=== PATIENT | female | born 1965 | race Two or more races ===

== ENCOUNTER 2024-06-26 15:28 | Outpatient (REF) | payer MEDICAID, SELFPAY ==
--- OUTSIDE RECORDS SUMMARY | 2024-06-26 15:31 | XMS_ITS | Continuity of Care Document ---
Author Organization [facility] Address [address] [place] [address] Phone Care Team Providers Care Security Flex Officer Name Role Phone No Information Unavailable Unavailable Allergies, Adverse Reactions, Alerts Substance Reaction Status Criticality No Known Allergies Active No Inform ation Medications Medication Instructions Dosage Effective Dates (start - stop) Status Comments naproxen 500 mg tablet take 1 tablet by oral route 2 times every day with food 500 MG - Active cyclobenzaprine 5 mg tablet take 1 tablet by oral route 2 times every day as needed 5 MG - Active Advance Directives Directive Yes / No Effective Date File Name No Information Encounters Encounter Description Practice Location Reason(s) For Visit Diagnoses Date Provider [address] tel:[phone] Location No Information No Information [place] [address], tel:[phone] [facility] No Information Raffucci Theodore. [address] [place] [address], [facility], . tel:[phone] [place] [address], tel:[phone] [facility] No Information Raffucci Theodore. [address] [place], [place], [facility], . tel:[phone], [facility], [place] tel:[phone] Dental Prakash No Information Raffucci Theodore. [address] [place], [place], [facility], [place]. tel:[phone] [place] [address], [address] [place] [address], [facility], tel:[phone] Dental Prakash No Information Raffucci Theodore. [address] [place], [place], [facility], [place]. tel:[phone] [place] [address], [address] [place] [address], [facility], tel:[phone] Dental Prakash No Information Raffucci Theodore. [address] [place], [place], [facility], . tel:[phone] [place] [address], [address] [place] [address], [facility], tel:[phone] [facility] left flank pain (chief complaint)W orried about BP (chief complaint) MyalgiaScreening for colon cancerScreening mammogram for breast cancerElevated blood pressure readingEncntr for general adult medical exam w/o abnormal findings Florin Hampton. [address] [place], [id number], . tel:[phone] [place] [address], [facility], [place] tel:[phone] [facility] Encounter for dental exam and cleaning w/o abnormal findings Raffucci Theodore. [address] [place], [facility], [place]. tel:[phone] [place] [address], [address] [place] [address], [facility], [place] tel:[phone] [facility] Encounter for dental exam and cleaning w/o abnormal findings Raffucci Theodore. [address] [place], [facility], [place]. tel:[phone] [place] [address] [place] [address], [facility], tel:[phone] [facility] Encounter for dental exam and cleaning w/o abnormal findings Jing Jaimes. [address] [place], [facility], . tel:[phone] [place] [address], [address] [place] [address], [facility], tel:[phone] [facility] Encounter for dental exam and cleaning w/o abnormal findings Jing Jaimes. [address] [place], [facility], . tel:[phone] [place] [address], [address] [place] [address], [facility], tel:[phone] [facility] Encounter for dental exam and cleaning w/o abnormal findings Jing Jaimes. [address] [place], [facility], [place]. tel:[phone] [place] [address], [address] [place] [address], [facility], tel:[phone] [facility] Encounter for dental exam and cleaning w/o abnormal findings Jing Jaimes. [address] [place], [facility], . tel:[phone] [place] [address], [facility], tel:[phone] [facility] Encounter for dental exam and cleaning w/o abnormal findings Kvng Hampton. [address] [place], [place], [id number], [place]. tel:[phone] [place] [address], [facility], tel:[phone] [facility] Encounter for dental exam and cleaning w/o abnormal findings Jing Jaimes. [address] [place], [facility], . tel:[phone] [place] [address], [place], [address], tel:[phone] [facility] Encounter for dental exam and cleaning w/o abnormal findings Jing Jaimes. [address] [place], [address], [place]. tel:[phone] [facility], [address] [place] [address], [address], [place] tel:[phone] [facility] Encounter for dental exam and cleaning w/o abnormal findings Jing Jaimes. [address] [facility] [place], [place]. tel:[phone] [facility], [address] [place] [address], [facility], [place] tel:[phone] [facility] Encounter for dental exam and cleaning w/o abnormal findings Jing Jaimes. [address] [place], [facility], [place]. tel:[phone] [place] [address], [address] [place] [address], [facility], [place] tel:[phone] [facility] Encounter for dental exam and cleaning w/o abnormal findings Jing Jaimes. [address] [place], [facility], [place]. tel:[phone] [facility], [address] [place] [address], [facility], [place] tel:[phone] [facility] Encounter for dental exam and cleaning w/o abnormal findings Jing Jaimes. [address] [place], [facility], [place]. tel:[phone] [facility], [address] [place] [address], [address], [place] tel:[phone] [facility] Encounter for dental exam and cleaning w/o abnormal findings Jing Jaimes. [address] [place], [facility], [place]. tel:[phone] [facility], [address] [place] [address], [facility], tel:[phone] Dental [place] Encounter for dental exam and cleaning w/o abnormal findings Bala Gomes. [address] [place], [facility], . [facility], [address] [place] [address], [facility], tel:[phone] [facility] Encounter for dental exam and cleaning w/o abnormal findings Bala Gomes. [address] [place], [facility], . [facility], [address] [place] [address], [facility], tel:[phone] Dental [place] Encounter for dental exam and cleaning w/o abnormal findings Bala Gomes. [address] [place], [facility], . [address], [facility], tel:[phone] Dental [place] Encounter for dental exam and cleaning w/o abnormal findings Bala Gomes. [address] [place], [facility], . [address], [facility], tel:[phone] [facility] Adult test result f/u (chief complaint) Age-related osteoporosis without current pathological fractureVitamin D deficiencyBody mass index (BMI) 22.0-22.9, adult Iliana Pena. [address], [place], [place], [facility], . tel:[phone], [facility], tel:[phone] [facility] Adult joint pain (chief complaint) Pain, joint, multiple sitesScreening mammogram, encounter forHealthcare maintenanceBody mass index (BMI) 21.0-21.9, adult Iliana Pena. [address], [place], [place], [facility], . tel:[phone] [facility], [address] [place] [address], [facility], tel:[phone] [facility] Encounter for dental exam and cleaning w/o abnormal findings Bala Gomes. [address] [place], [address], [place]. [facility], [address] [place] [address], [address], tel:[phone] [facility] Encounter for dental exam and cleaning w/o abnormal findings Bala Gomes. [address] [place], [address], [place]. [facility], [address] [place] [address], [facility], tel:[phone] [facility] Encounter for dental exam and cleaning w/o abnormal findings Bala Gomes. [address] [place], [address], [place]. [facility], [address] [place] [address], [facility], tel:[phone] [facility] Encounter for dental exam and cleaning w/o abnormal findings Bala Gomes. [address] [place], [facility], [place]. [facility], [address] [place] [address], [facility], tel:[phone] [facility] Encounter for dental exam and cleaning w/o abnormal findings Bala Gomes. [address] [place], [address], [place]. [facility], [address] [place] [address], [facility], tel:[phone] [facility] Encounter for dental exam and cleaning w/o abnormal findings Bala Gomes. [address] [place], [address], [place]. [address], [facility], tel:[phone] [facility] Encounter for dental exam and cleaning w/o abnormal findings Bala Gomes. [address] [place], [facility], [place]. [facility], [address] [place] [address], [address] [place] [address] tel:[phone] Dental [place] Encounter for dental exam and cleaning w/o abnormal findings Rafat Nguyen. [address] [place] [address], [facility], . tel:[phone] [place] [address], [address] [place] [address], [facility], tel:[phone] [facility] [place] cold symptoms (chief complaint) Acute non-recurrent maxillary sinusitis Dixon Anny. [address] [facility], [id number] [place], [facility], . tel:[phone] [place] [address], [address] [place] [address], [facility], tel:[phone] [facility] [place] ear ache (chief complaint) Acute non-recurrent maxillary sinusitisAcute mucoid otitis media of right ear Jessica Blanco. [address] [facility], [id number] [place], [place], [facility], . tel:[phone] [place] [address], [address] [place] [address], [facility], tel:[phone] [facility] [place] chest pain and cough (chief complaint) Bronchitis Jessica Sánchez. [address] [place], [place] [address]man Radha., [id number] [place], [place], [facility], . tel:[phone] [place] [address], [facility], tel:[phone] [facility] [place] DENTAL EXAMINATION Jing Jaimes. [address] [place], [place], [facility], . tel:[phone] [place] [address], [address] [place] [address], [facility], tel:[phone] [place] [facility] physical (chief complaint) Annual Adult PhysicalPPD Screen Kim Silva. [address] [place] [address], [id number], [place]. tel:[phone] [facility], [address] [facility], [place], [address], [place] tel:[phone] [facility] , knee pains right (chief complaint) Knee pain, acute Jessica Blanco. [address] [facility], [id number] [place], [address], [place]. tel:[phone] Family History Family Member Type Diagnosis Age At Onset Father Problem (finding) Hepatitis C (Cause Of D eath) Sister Problem (finding) murder (Cause Of ) Son Problem (finding) Sister Problem (finding) Mother Problem (finding) osteoporosis Son Problem (finding) asthma (Cause Of ) Father Problem (finding) Payers Payer name Insurance type Covered democrat ID Shahriar ramos(s) DENTAL [facility] CI [id number] Social History Type Description Quantity Date Captured Comments Sex Female Smoking Status No Information Sexual Orientation Straight or heterosexual May Gender Identity Female Chief Complaint And Reason For Visit No Information Plan Of Treatment Date Type Action Status Goal Colonoscopy. Due on 027 due Goal Tdap/Td. Due on due Goal Zoster vaccine ( ). Due on due Goal FOBT/FIT. Due on due Goal SBIRT. Due on du e Goal Self-Management Goals. Due on due Goal Influenza vaccin e. Due on due Goal HCV reflex to Qu ant RT PCR. Due on due Goal Pap/HPV testing. Due on due Goal Hep B Surface Ab , Quant. Due on due Goal Hep B Core Ab, I gM. Due on due Goal HIV 1/0/2 Ag/Ab With Reflex. Due on due Goal DEXA scan due Goal HCV reflex to Qu ant RT PCR. Due on due Goal Tdap/Td. Due on due Goal Self-Management Goals. Due on due Goal SBIRT. Due on du e Goal HIV 1/0/2 Ag/Ab With Reflex. Due on due Goal Influenza vaccin e. Due on due Goal FOBT/FIT. Due on due Goal Colonoscopy. Due on 027 due Goal DEXA scan due Goal Hep B Core Ab, I gM. Due on due Goal Pap/HPV testing. Due on due Goal Hep B Surface Ab , Quant. Due on due Goal Zoster vaccine ( ). Due on due Goal Influenza vaccin e. Due on due Goal FOBT/FIT. Due on due Goal SBIRT. Due on du e Goal HCV reflex to Qu ant RT PCR. Due on due Goal Tdap/Td. Due on due Goal Hep B Core Ab, I gM. Due on due Goal Hep B Surface Ab , Quant. Due on due Goal DEXA scan due Goal HIV 1/0/2 Ag/Ab With Reflex. Due on due Goal Pap/HPV testing. Due on due Goal Colonoscopy. Due on due Goal Self-Management Goals. Due on due Goal Zoster vaccine ( ). Due on due Goal Self-Management Goals. Due on due Goal Tdap/Td. Due on due Goal FOBT/FIT. Due on due Goal Influenza vaccin e. Due on due Goal Hep B Surface Ab , Quant. Due on due Goal HIV 1/0/2 Ag/Ab With Reflex. Due on due Goal Colonoscopy. Due on due Goal Zoster vaccine ( ). Due on due Goal SBIRT. Due on du e Goal Hep B Core Ab, I gM. Due on due Goal Pap/HPV testing. Due on due Goal HCV reflex to Qu ant RT PCR. Due on due Goal DEXA scan due Goal Tdap/Td. Due on due Goal Pap/HPV testing. Due on due Goal Self-Management Goals. Due on due Goal HCV reflex to Qu ant RT PCR. Due on due Goal DEXA scan due Goal Zoster vaccine ( 1st). Due on due Goal Influenza vaccin e. Due on due Goal Hep B Core Ab, I gM. Due on due Goal Colonoscopy. Due on 027 due Goal HIV 1/0/2 Ag/Ab With Reflex. Due on due Goal SBIRT. Due on du e Goal FOBT/FIT. Due on due Goal Hep B Surface Ab , Quant. Due on due Goal Zoster vaccine ( ). Due on due Goal DEXA scan due Goal Colonoscopy. Due on 027 due Goal FOBT/FIT. Due on due Goal Self-Management Goals. Due on due Goal HCV reflex to Qu ant RT PCR. Due on due Goal Influenza vaccin e. Due on due Goal Pap/HPV testing. Due on due Goal HIV 1/0/2 Ag/Ab With Reflex. Due on due Goal SBIRT. Due on du e Goal Hep B Surface Ab , Quant. Due on due Goal Hep B Core Ab, I gM. Due on due Goal Tdap/Td. Due on due Goal Hep B Core Ab, I gM. Due on due Goal HCV reflex to Qu ant RT PCR. Due on due Goal HIV 1/0/2 Ag/Ab With Reflex. Due on due Goal Zoster vaccine ( ). Due on due Goal Hep B Surface Ab , Quant. Due on due Goal Pap/HPV testing. Due on due Goal DEXA scan due Goal Influenza vaccin e. Due on due Goal Colonoscopy. Due on 027 due Goal Self-Management Goals. Due on due Goal Tdap/Td. Due on due Goal SBIRT. Due on du e Goal FOBT/FIT. Due on due Goal Tobacco cessation counseling completed Referral Ordered: Gastroenterology (related to Screening for colon cancer) ordered Referral Ordered: Lissy Orlando MD -Gynecology (related to Healthcare maintenance) ordered Referral Referred To: Lissy Orlando MD [address] [place] [address] [id number] [place], [address] [phone] Ordered: Referrals: Gynecology. Lissy Orlando MD. Evaluate and treat Appointment date/timeframe: 6 Months ordered Referral Referred To: [facility] [address] [place], [phone] Ordered: Referrals: Gastroenterology. Evaluate and treat Appointment date/timeframe: 6 Months ordered Future Order: Radiology Order Ma mmogram (Screen); Bilat, 2-view study of each breast, incl computer-aided detection when performed ([id number]), Ordered on: Ordered Future Order: Lab Order CBC w/di ff ([id number]), Ordered on: Ordered Future Order: Lab Order CMP ([id number]), Ordered on: Ordered Future Order: Lab Order Lipid Pa tonny ([id number]), Ordered on: Ordered Future Order: Lab Order Lyme, We miller Blot, Serum ([id number]), Ordered on: Ordered Future Order: Lab Order GENESIS ([id number]), Ordered on: Ordered Future Order: Lab Order Rheumato id Factor ([id number]), Ordered on: Ordered Future Order: Lab Order TSH ([id number]), Ordered on: Ordered Future Order: Lab Order UA w/dejon ro ([id number]), Ordered on: Ordered Future Order: Lab Order Vitamin D, 25-Hydroxy ([id number]), Ordered on: Ordered Future Order: Radiology Order Ma mmogram (Screening); Bilateral ([id number]), Ordered on: Ordered Future Order: Radiology Order Rj ne density study (by DEXA); appendicular skeleton (e.g., radius, wrist, heel) ([id number]), Ordered on: Ordered Future Order: Lab Order CMP ([id number]), Ordered on: Ordered Future Order: Lab Order Lipid Pa tonny ([id number]), Ordered on: Ordered History Of Present Illness Encounter Date Complaint History Of Prese nt Illness left flank pain Has been having left flank pain intermittently for the last 2 months. Is achy in nature and feels like the muscles are tensed.No dysuria, fever, chills or nausea. No change in odor or color of urine. Worried about BP Has been having high blood pressure reading at home.No headaches , chest pain or pressure. test result f/u Patient presents to follow-up test results. Discussed with patient benign labs, DEXA positive osteoporosis. Copy of reports providedjoint pain continues, pt states worse in the cold joint pain Onset: 1 month a go. It occurs constantly and is fluctuating. Location: bilateral bilateral wrist and knees. The pain radiates to the radiates down to finger tips and from knees to toes. The pain is aching and shooting. Context: there is no injury. There are no relieving factors. Associated symptoms include joint tenderness, locking, swelling, weakness and tremors. Pertinent negatives include bruising, crepitus, decreased mobility, difficulty initiating sleep, joint instability, limping, nocturnal awakening, nocturnal pain, numbness, popping, spasms, tingling in the arms and tingling in the legs. Hand Dominance: right. Additional information: NO relief with Ibuprofen, Tylenol, Advil, post menopausal, (8/10), worse with cold. cold symptoms The patient desc ribes the cough as dry and hacking. Associated symptoms include cough, hoarseness, nasal congestion, sinus pressure and sore throat. Pertinent negatives include chills, dyspnea, dyspnea on exertion, epistaxis, fatigue, fever, heartburn, hemoptysis, night sweats, pleuritic pain, post-nasal drainage, rhinitis, rhinorrhea, weight loss and wheezing. The patient does not have a history of allergies or asthma. ear ache The symptoms beg an 1 day ago. The symptoms are reported as being moderate. The location is right ear. Patient is here today stating she is having difficulty hearing in her right ear, states it started last night, reports right ear pressure and mild headache and denies pain. chest pain and cough She states the symptoms are acute and have worsened. pt been coughting and has chest pain Instructions Date Instruction Additional Infor krissy Blood pressure readi ng normal today.Educated on what to do prior to taking BP at home.Consume a diet high in fruits, vegetables, low-fat dairy, grains, poultry and fish. AVOID high salt intake, sugary foods and drinks. Exercise for 20 minutes a day 3 to 4 times a week. Related to Elevated blood pressure reading Naproxen and Cyclobe nzaprine prescribed. Related to Myalgia Refer to GI for colonoscopy. Rel ated to Screening for colon cancer Screening mammogram ordered. Rel ated to Screening mammogram for breast cancer Start Calcium and Vi tamin D supplement today,Ibuprofen or other OTC pain relief medications needed to joint pains Related to Age-related osteoporosis without current pathological fracture Complete all lab guillermo ts and follow-up for results in 3-5 business daysLabs are fasting, nothing to eat or drink after midnight prior to completing lab tests Related to Healthcare maintenance Mammo Rx chucho gardner follow-up results same day as DEXA scan Related to Screening mammogram, encounter for DEXA scan ordered to assess Rela flores to Pain, joint, multiple sites Finish your antibiot ic as prescribed, change your toothbrush, get plenty of rest, return to office if no improvement. Related to Acute non-recurrent maxillary sinusitis Follow up if symptom s persist or worsen. Related to Acute non-recurrent maxillary sinusitis Supportive Care Related to Acute non-recurrent maxillary sinusitis Saline gargles. Related to Acute non-recurrent maxillary sinusitis Practice good hygiene/ good hand washing Related to Acute non- recurrent maxillary sinusitis You must finish all antibiotics as ordered, do not stop them because you feel better. Related to Acute non-recurrent maxillary sinusitis Force Fluids Related to Acute non-recurrent maxillary sinusitis Increase your water intake to 100 cc per day to help thin the mucousTake sinus and congestion medicine consistentlyIf antibiotics prescribed take them until finishedMay consider using the REDDY POT to help drain the mucous from the sinusesAvoid allergensIf your a smoker, stop smoking Related to Acute non-recurrent maxillary sinusitis Use tylenol or advil for fever or painsTake the antibiotic as reviewedFollow up as needed if worsening ear probelmsincrease clear fluids Related to Acute mucoid otitis media of right ear Supportive Care Related to Bronc hitis Take medications as prescribed, do not skip doses. Related to Bronchitis Take medications as prescribed, do not skip doses. Related to Bronchitis Tylenol for fever an d pain. do not take more than the recommended dose daily. Related to Bronchitis You must finish all antibiotics as ordered, do not stop them because you feel better. Related to Bronchitis Practice good hygiene/ good hand washing Related to Bronchitis Go to ER is symptoms persist or worsen Related to Bronchitis Follow up if symptom s persist or worsen. Related to Bronchitis Patient understood a nd made informed decision Reviewed medications Take new medication as prescribe d Elevation Apply ice to affected area Increase rest Practice good hygiene Assessments Type Assessment Date No Information
== END 2024-06-26 15:29 | disposition home or self-care (01) ==
LOC: HO.MAMMO 15:28
PROVIDERS: PCP Internal Medicine; Visit Provider Internal Medicine
DX: Z12.31 Encounter for screening mammogram for malignant neoplasm of breast (principal)
CPT/HCPCS: 77063; 77067

== ENCOUNTER → 2024-06-26 15:30 | Outpatient (BNV) | payer MEDICAID, SELFPAY | PROVIDERS: PCP Internal Medicine; Visit Provider Internal Medicine | DX: Z12.31 Encounter for screening mammogram for malignant neoplasm of breast (principal) | CPT/HCPCS: 77063; 77067 ==

== ENCOUNTER 2024-06-27 14:37 | Outpatient (REF) | payer MEDICAID, SELFPAY ==
--- NOTE | ~2024-06-27 | MM_ITS ---
EXAMINATION: BONE DENSITOMETRY CLINICAL INDICATION: Osteoporosis. COMPARISON: This is the patient's baseline examination. TECHNIQUE: Using a [employer] DXA System (software version: 13.1) manufactured by [employer], dual-energy x-ray absorptiometry was performed of the lumbar spine and left hip. The images are of good technical quality. Summary results are attached. FINDINGS: LEFT FEMUR, NECK: BMD 0.801 g/cm2, Z-score -1.4, T-score -1.7, osteopenia. LEFT FEMUR, TOTAL: BMD 0.890 g/cm2, Z-score -1.0, T-score -0.9, normal. AP SPINE L1-L4: BMD 0.863 g/cm2, Z-score -2.2, T-score -2.6, osteoporosis. IDENTIFIED RISK FACTORS: Menopause, osteoporosis, tobacco user (current smoker). HISTORY OF FRACTURE: None listed. MEDICATIONS: Vitamin D. MM/XR DEXA axial skeleton IMPRESSION: 1. DIAGNOSIS: Osteoporosis based on the lowest T-score value of -2.6 in the lumbar spine applying World Health Organization criteria. 2. 10-YEAR FRACTURE RISK PREDICTION, FRAX: According to the guidelines, FRAX calculation should only be performed on patients in the osteopenia bone density category. Therefore, FRAX was not performed on this patient. 3. Treatment Recommendations: NOF guidelines recommend consideration for treatment in postmenopausal women and men age 50 and older presenting with the following: -A hip or vertebral (clinical or morphometric) fracture. -T-score less than or equal to -2.5 at the femoral neck or spine after appropriate evaluation to exclude secondary causes. -Low bone mass at the hip or spine and a 10-year fracture probability by FRAX of greater than or equal to 3% for hip fracture or greater than or equal to 20% for major osteoporotic fracture based on the [place] adapted WHO algorithm. 4. Other Recommendations: All treatment decisions require clinical judgment and consideration of individual patient factors, including patient preferences, comorbidities, previous drug use, risk factors not captured in the FRAX model (e.g. frailty, falls, vitamin D deficiency, increased bone turnover, interval significant decline in bone density) and possible under or overestimation of fracture risk by FRAX. Additional medical evaluation for secondary cause of low bone mineral density may be appropriate. FUTURE SCAN RECOMMENDATION: People with diagnosed cases of osteoporosis or at high risk for fracture should have regular bone mineral density tests. For patients eligible for Medicare, routine testing is allowed once every 2 years. The testing frequency can be increased to one year for patients who have rapidly progressing disease, those who are receiving or discontinuing medical therapy to restore bone mass, or have additional risk factors. Electronically signed by: Farhat Sosa MD 06/28/2024 10:12 AM SAUL
--- OUTSIDE RECORDS SUMMARY | 2024-06-27 14:39 | XMS_ITS | Continuity of Care Document ---
Author Organization [facility] Address [address] [place] [address] Phone Care Team Providers Care Survey Compiler Name Role Phone No Information Unavailable Unavailable [...] Location Reason(s) For Visit Diagnoses Date Provider [address] tel:[phone] No Location No Information No Information [place] [address], tel:[phone] [facility] No Information Raffucci Theodore. [address] [place] [address], [facility], . tel:[phone] [place] [address], tel:[phone] [facility] No Information Raffucci Theodore. [address] [place], [place], [facility], . tel:[phone], [facility], [place] tel:[phone] Dental Prakash No Information Raffucci Theodore. [address] [place], [place], [facility], [place]. tel:[phone] [place] [address], [address] [place] [address], [facility], tel:[phone] Dental Prakash No Information Raffucci Theodore. [address] [place], [place], [facility], [place]. tel:[phone] [place] [address], [address] [place] [address], [facility], tel:[phone] Dental Prakash No Information Raffucci Theodore. [address] [place], [place], [facility], . tel:[phone] [place] [address], [address] [place] [address], [facility], tel:[phone] [facility] left flank pain (chief complaint)W orried about BP (chief complaint) MyalgiaScreening for colon cancerScreening mammogram for breast cancerElevated blood pressure readingEncntr for general adult medical exam w/o abnormal findings Florin Hampton. [address] [place], [id number], . tel:[phone] [place] [address], [facility], [place] tel:[phone] [facility] Encounter for dental exam and cleaning w/o abnormal findings Raffucci Theodore. [address] [place], [facility], [place]. tel:[phone] [place] [address], [address] [place] [address], [facility], [place] tel:[phone] [facility] Encounter for dental exam and cleaning w/o abnormal findings Raffucci Theodore. [address] [place], [facility], [place]. tel:[phone] [place] [address] [place] [address], [facility], tel:[phone] [facility] Encounter for dental exam and cleaning w/o abnormal findings Jing Jaimes. [address] [place], [facility], . tel:[phone] [place] [address], [address] [place] [address], [facility], tel:[phone] [facility] Encounter for dental exam and cleaning w/o abnormal findings Jing Jaimes. [address] [place], [facility], . tel:[phone] [place] [address], [address] [place] [address], [facility], tel:[phone] [facility] Encounter for dental exam and cleaning w/o abnormal findings Jing Jaimes. [address] [place], [facility], [place]. tel:[phone] [place] [address], [address] [place] [address], [facility], tel:[phone] [facility] Encounter for dental exam and cleaning w/o abnormal findings Jing Jaimes. [address] [place], [facility], . tel:[phone] [place] [address], [facility], tel:[phone] [facility] Encounter for dental exam and cleaning w/o abnormal findings Kvng Hampton. [address] [place], [place], [id number], [place]. tel:[phone] [place] [address], [facility], tel:[phone] [facility] Encounter for dental exam and cleaning w/o abnormal findings Jing Jaimes. [address] [place], [facility], . tel:[phone] [place] [address], [place], [address], tel:[phone] [facility] Encounter for dental exam and cleaning w/o abnormal findings Jing Jaimes. [address] [place], [address], [place]. tel:[phone] [facility], [address] [place] [address], [address], [place] tel:[phone] [facility] Encounter for dental exam and cleaning w/o abnormal findings Jing Jaimes. [address] [facility] [place], [facility], [place]. tel:[phone] [facility], [address] [place] [address], [facility], [place] tel:[phone] [facility] Encounter for dental exam and cleaning w/o abnormal findings Jing Jaimes. [address] [place], [facility], [place]. tel:[phone] [place] [address], [address] [place] [address], [facility], [place] tel:[phone] [facility] Encounter for dental exam and cleaning w/o abnormal findings Jing Jaimes. [address] [place], [facility], [place]. tel:[phone] [facility], [address] [place] [address], [facility], [place] tel:[phone] [facility] Encounter for dental exam and cleaning w/o abnormal findings Jing Jaimes. [address] [place], [facility], [place]. tel:[phone] [facility], [address] [place] [address], [address], [place] tel:[phone] [facility] Encounter for dental exam and cleaning w/o abnormal findings Jing Jaimes. [address] [place], [facility], [place]. tel:[phone] [facility], [address] [place] [address], [facility], tel:[phone] [facility] [place] Encounter for dental exam and cleaning w/o abnormal findings Bala Gomes. [address] [place], [facility], . [facility], [address] [place] [address], [facility], tel:[phone] [facility] Encounter for dental exam and cleaning w/o abnormal findings Bala Gomes. [address] [place], [facility], . [facility], [address] [place] [address], [facility], tel:[phone] [facility] [place] Encounter for dental exam and cleaning w/o abnormal findings Bala Gomes. [address] [place], [facility], . [address], [facility], tel:[phone] [facility] [place] Encounter for dental exam and cleaning w/o abnormal findings Bala Gomes. [address] [place], [facility], . [address], [facility], tel:[phone] [facility] Adult test result f/u (chief complaint) Age-related osteoporosis without current pathological fractureVitamin D deficiencyBody mass index (BMI) 22.0-22.9, adult Iliana Pena. [address], [place], [place], [facility], . tel:[phone], [facility], tel:[phone] [facility] Adult joint pain (chief complaint) Pain, joint, multiple sitesScreening mammogram, encounter forHealthcare maintenanceBody mass index (BMI) 21.0-21.9, adult Iliana Pena. [address], [place], [place], [facility], . tel:[phone] [facility], [address] [place] [address], [facility], tel:[phone] [facility] Encounter for dental exam and cleaning w/o abnormal findings Bala Gomes. [address] [place], [address], [place]. [facility], [address] [place] [address], [address], tel:[phone] [facility] Encounter for dental exam and cleaning w/o abnormal findings Bala Gomes. [address] [place], [address], [place]. [facility], [address] [place] [address], [facility], tel:[phone] [facility] Encounter for dental exam and cleaning w/o abnormal findings Bala Gomes. [address] [place], [address], [place]. [facility], [address] [place] [address], [facility], tel:[phone] [facility] Encounter for dental exam and cleaning w/o abnormal findings Bala Gomes. [address] [place], [facility], [place]. [facility], [address] [place] [address], [facility], tel:[phone] [facility] Encounter for dental exam and cleaning w/o abnormal findings Bala Gomes. [address] [place], [address], [place]. [facility], [address] [place] [address], [facility], tel:[phone] [facility] Encounter for dental exam and cleaning w/o abnormal findings Bala Gomes. [address] [place], [address], [place]. [address], [facility], tel:[phone] [facility] Encounter for dental exam and cleaning w/o abnormal findings Bala Gomes. [address] [place], [facility], [place]. [facility], [address] [place] [address], [address] [place] [address] tel:[phone] [facility] [place] Encounter for dental exam and cleaning w/o abnormal findings Rafat Nguyen. [address] [place] [address], [facility], . tel:[phone] [place] [address], [address] [place] [address], [facility], tel:[phone] [facility] cold symptoms (chief complaint) Acute non-recurrent maxillary sinusitis Dixon Anny. [address] [facility], [id number] [place], [place], [facility], . tel:[phone] [place] [address], [address] [place] [address], [facility], tel:[phone] [facility] ear ache (chief complaint) Acute non-recurrent maxillary sinusitisAcute mucoid otitis media of right ear Jessica Blanco. [address] [facility], [id number] [place], [place], [facility], . tel:[phone] [place] [address], [address] [place] [address], [facility], tel:[phone] [facility] chest pain and cough (chief complaint) Bronchitis Jessica Sánchez. [address] [place], [place] [address]man Radha., [id number] [place], [facility], . tel:[phone] [place] [address], [facility], tel:[phone] [facility] [place] DENTAL EXAMINATION Jing Jaimes. [address] [place], [place], [facility], . tel:[phone] [place] [address], [address] [place] [address], [facility], tel:[phone] [facility] physical (chief complaint) Annual Adult PhysicalPPD Screen Kim Silva. [address] [place] [address], [id number], [place]. tel:[phone] [facility], [address] [facility], [place], [address], [place] tel:[phone] [facility] , knee pains right (chief complaint) Knee pain, acute Jessica Blanco. [address] [facility], [id number] [place], [address], [place]. tel:[phone] Family History Family Member Type Diagnosis Age At Onset Father Problem (finding) Hepatitis C (Cause Of D eath) Sister Problem (finding) murder (Cause Of ) Son Problem (finding) Sister Problem (finding) Mother Problem (finding) osteoporosis Son Problem (finding) asthma (Cause Of ) Father Problem (finding) Payers Payer name Insurance type Covered democrat ID Shahriar sagephuc(s) DENTAL [facility] CI [id number] Social History Type Description Quantity Date Captured Comments Sex Female Smoking Status No Information Sexual Orientation Straight or heterosexual May Gender Identity Female Chief Complaint And Reason For Visit No Information Plan Of Treatment Date Type Action Status Goal Zoster vaccine ( ). Due on due Goal FOBT/FIT. Due on due Goal Hep B Core Ab, I gM. Due on due Goal SBIRT. Due on du e Goal Colonoscopy. Due on 027 due Goal Pap/HPV testing. Due on due Goal HIV 1/0/2 Ag/Ab With Reflex. Due on due Goal Hep B Surface Ab , Quant. Due on due Goal Self-Management Goals. Due on due Goal Influenza vaccin e. Due on due Goal Tdap/Td. Due on due Goal DEXA scan due [...] Goal Colonoscopy. Due on 027 due Goal Zoster vaccine ( ). Due on due Goal SBIRT. Due on du e Goal Hep B Core Ab, I gM. Due on due Goal Pap/HPV testing. Due on due Goal HCV reflex to Qu ant RT PCR. Due on due Goal DEXA scan due Goal Self-Management Goals. Due on due Goal Tdap/Td. Due on due Goal Tdap/Td. Due on due Goal Pap/HPV testing. Due on due Goal Self-Management Goals. Due on due Goal HCV reflex to Qu ant RT PCR. Due on due Goal DEXA scan due Goal Zoster vaccine ( ). Due on due Goal Influenza vaccin e. Due on due Goal Hep B Core Ab, I gM. Due on due Goal Colonoscopy. Due on 027 due Goal HIV 1/0/2 Ag/Ab With Reflex. Due on due Goal SBIRT. Due on du e Goal FOBT/FIT. Due on due Goal Hep B Surface Ab , Quant. Due on due Goal FOBT/FIT. Due on due Goal Zoster vaccine ( [...] FOBT/FIT. Due on due Goal Hep B Core [...] ordered Referral Referred To: Lissy Orlando MD [address] [place] [address] [id number] [place], [address] [phone] Ordered: Referrals: Gynecology. Lissy Orlando MD. Evaluate and treat Appointment date/timeframe: 6 Months ordered Referral Referred To: [facility] [address] [place], [address] [phone] Ordered: Referrals: Gastroenterology. Evaluate and treat Appointment date/timeframe: 6 Months ordered Future Order: Radiology Order Ma mmogram (Screen); Bilat, 2-view study of each breast, incl computer-aided detection when performed ([id number]), Ordered on: Ordered Future Order: Lab Order CBC w/di ff ([id number]), Ordered on: Ordered Future Order: Lab Order CMP ([id number]), Ordered on: Ordered Future Order: Lab Order Lipid Pa tonny ([id number]), Ordered on: Ordered Future Order: Lab Order Lyme, We miller Blot, Serum ([id number]), Ordered on: Ordered Future Order: Lab Order GENESIS ([id number]), Ordered on: Ordered Future Order: Lab Order Rheumato id Factor ([id number]), Ordered on: Ordered Future Order: Lab Order TSH ([id number]), Ordered on: Ordered Future Order: Lab Order UA w/dejon ro ([id number]), Ordered on: Ordered Future Order: Lab Order Vitamin D, 25-Hydroxy ([id number]), Ordered on: Ordered Future Order: Radiology Order Ma mmogram (Screening); Bilateral ([id number]), Ordered on: Ordered Future Order: Radiology Order Rj ne density study (by DEXA); appendicular skeleton (e.g., radius, wrist, heel) ([id number]), Ordered on: Ordered Future Order: Lab Order CMP ([id number]), Ordered on: Ordered Future Order: Lab Order Lipid Pa tonny ([id number]), Ordered on: Ordered History Of Present Illness [...]
== END 2024-06-27 14:38 | disposition home or self-care (01) ==
LOC: HO.MAMMO 14:37
PROVIDERS: Visit Provider Internal Medicine
DX: M81.0 Age-related osteoporosis without current pathological fracture (principal)
CPT/HCPCS: 77080

== ENCOUNTER 2024-07-10 20:42 | Emergency (ER) | payer MEDICAID, SELFPAY ==
--- NOTE | ~2024-07-10 | XR_ITS ---
CLINICAL HISTORY: trauma Exam: AP, lateral, and mortise views of the left ankle. Comparison: None. Findings: Vertically oriented fracture of the lateral aspect of the distal fibula is seen extending to the tip of the lateral malleolus. This bony fragment measures 20 x 4 mm in size. Associated soft tissue swelling over the lateral aspect of the ankle and hindfoot. No additional fractures are identified. Ankle mortise is intact. Impression: Vertical fracture of the distal fibula with associated lateral soft tissue swelling. This document has been electronically signed by: Santiago Douglas MD on 07/10/2024 22:03:28
--- OUTSIDE RECORDS SUMMARY | 2024-07-10 20:45 | XMS_ITS | Continuity of Care Document ---
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 [address] [place] [address], [facility], . tel:[phone] [place] [address], tel:[phone] [facility] No Information Raffucci Theodore. [address], [place], [facility], . tel:[phone], [facility], [place] tel:[phone] Dental Prakash No Information Raffucci Theodore. [address], [place], [facility], [place]. tel:[phone] [place] [address], [address] [place] [address], [facility], tel:[phone] Dental Prakash No Information Raffucci Theodore. [address], [place], [facility], [place]. tel:[phone] [place] [address], [address] [place] [address], [facility], tel:[phone] Dental Prakash No Information Raffucci Theodore. [address], [facility], . tel:[phone] [place] [address], [address] [place] [address], [facility], tel:[phone] [facility] left flank pain (chief complaint)W orried about BP (chief complaint) MyalgiaScreening for colon cancerScreening mammogram for breast cancerElevated blood pressure readingEncntr for general adult medical exam w/o abnormal findings Florin Hampton. [address] [place], [id number], . tel:[phone] [place] [address], [facility], [place] tel:[phone] [facility] Encounter for dental exam and cleaning w/o abnormal findings Raffucci Theodore. [address], [facility], [place]. tel:[phone] [place] [address], [address] [place] [address], [facility], [place] tel:[phone] [facility] Encounter for dental exam and cleaning w/o abnormal findings Raffucci Theodore. [address], [facility], [place]. tel:[phone] [place] [address] [place] [address], [facility], tel:[phone] [facility] Encounter for dental exam and cleaning w/o abnormal findings Jing Jaimes. [address], [facility], . tel:[phone] [place] [address], [address] [place] [address], [facility], tel:[phone] [facility] Encounter for dental exam and cleaning w/o abnormal findings Jing Jaimes. [address], [facility], . tel:[phone] [place] [address], [address] [place] [address], [facility], tel:[phone] [facility] Encounter for dental exam and cleaning w/o abnormal findings Jing Jaimes. [address], [facility], [place]. tel:[phone] [place] [address], [address] [place] [address], [facility], tel:[phone] [facility] Encounter for dental exam and cleaning w/o abnormal findings Jing Jaimes. [address], [facility], . tel:[phone] [place] [address], [facility], tel:[phone] [facility] Encounter for dental exam and cleaning w/o abnormal findings Kvng Hampton. [address] [place], [place], [id number], [place]. tel:[phone] [place] [address], [facility], tel:[phone] [facility] Encounter for dental exam and cleaning w/o abnormal findings Jing Jaimes. [address], [facility], . tel:[phone] [place] [address], [place], [address], tel:[phone] [facility] Encounter for dental exam and cleaning w/o abnormal findings Jing Jaimes. [address] [place], [address], [place]. tel:[phone] [facility], [address] [place] [address], [address], [place] tel:[phone] [facility] Encounter for dental exam and cleaning w/o abnormal findings Jing Jaimes. [address] [facility], [facility], [place]. tel:[phone] [facility], [address] [place] [address], [facility], [place] tel:[phone] [facility] Encounter for dental exam and cleaning w/o abnormal findings Jing Jaimes. [address], [facility], [place]. tel:[phone] [place] [address], [address] [place] [address], [facility], [place] tel:[phone] [facility] Encounter for dental exam and cleaning w/o abnormal findings Jing Jaimes. [address], [facility], [place]. tel:[phone] [facility], [address] [place] [address], [facility], [place] tel:[phone] [facility] Encounter for dental exam and cleaning w/o abnormal findings Jing Jaimes. [address], [facility], [place]. tel:[phone] [facility], [address] [place] [address], [address], [place] tel:[phone] [facility] Encounter for dental exam and cleaning w/o abnormal findings Jing Jaimes. [address], [facility], [place]. tel:[phone] [facility], [address] [place] [address], [facility], tel:[phone] [facility] [place] Encounter for dental exam and cleaning w/o abnormal findings Bala Gomes. [address], [facility], . [facility], [address] [place] [address], [facility], tel:[phone] [facility] Encounter for dental exam and cleaning w/o abnormal findings Bala Gomes. [address], [facility], . [facility], [address] [place] [address], [facility], tel:[phone] [facility] [place] Encounter for dental exam and cleaning w/o abnormal findings Bala Gomes. [address], [facility], . [address], [facility], tel:[phone] [facility] [place] Encounter for dental exam and cleaning w/o abnormal findings Bala Gomes. [address], [facility], . [address], [facility], tel:[phone] [facility] Adult test result f/u (chief complaint) Age-related osteoporosis without current pathological fractureVitamin D deficiencyBody mass index (BMI) 22.0-22.9, adult Iliana Pena. [address], [place], [place], [facility], . tel:[phone], [facility], tel:[phone] [facility] Adult joint pain (chief complaint) Pain, joint, multiple sitesScreening mammogram, encounter forHealthcare maintenanceBody mass index (BMI) 21.0-21.9, adult Iliana Pena. [address], [place], [place], [facility], . tel:[phone] [facility], [address] [place] [address], [facility], tel:[phone] [facility] Encounter for dental exam and cleaning w/o abnormal findings Bala Gomes. [address] [place], [address], [place]. [facility], [address] [place] [address], [address], tel:[phone] [facility] Encounter for dental exam and cleaning w/o abnormal findings Bala Gomes. [address] [place], [address], [place]. [facility], [address] [place] [address], [facility], tel:[phone] [facility] Encounter for dental exam and cleaning w/o abnormal findings Bala Gomes. [address] [place], [address], [place]. [facility], [address] [place] [address], [facility], tel:[phone] [facility] Encounter for dental exam and cleaning w/o abnormal findings Bala Gomes. [address], [facility], [place]. [facility], [address] [place] [address], [facility], tel:[phone] [facility] Encounter for dental exam and cleaning w/o abnormal findings Bala Gomes. [address] [place], [address], [place]. [facility], [address] [place] [address], [facility], tel:[phone] [facility] Encounter for dental exam and cleaning w/o abnormal findings Bala Gomes. [address] [place], [address], [place]. [address], [facility], tel:[phone] [facility] Encounter for dental exam and cleaning w/o abnormal findings Bala Gomes. [address], [facility], [place]. [facility], [address] [place] [address], [address] [place] [address] tel:[phone] [facility] [place] Encounter for dental exam and cleaning w/o abnormal findings Rafat Nguyen. [address] [place] [address], [facility], . tel:[phone] [address] [place] [address], [address] [place] [address], [facility], tel:[phone] [facility] cold symptoms (chief complaint) Acute non-recurrent maxillary sinusitis Dixon Anny. [facility], [id number] [place], [facility], . tel:[phone] [address] [place] [address], [address] [place] [address], [facility], tel:[phone] [facility] ear ache (chief complaint) Acute non-recurrent maxillary sinusitisAcute mucoid otitis media of right ear Jessica Blanco. [address] [facility], [id number] [place], [place], [facility], . tel:[phone] [address] [place] [address], [address] [place] [address], [facility], tel:[phone] [facility] chest pain and cough (chief complaint) Bronchitis Jessica Sánchez. [address] [place], [place] [address]man Radha., [id number] [place], [facility], . tel:[phone] [address] [place] [address], [facility], tel:[phone] [facility] Jing Jaimes. [address], [facility], . tel:[phone] [address] [place] [address], [address] [place] [address], [facility], tel:[phone] [facility] physical (chief complaint) Annual Adult PhysicalPPD Screen Kim Silva. [address] [place] [address], [id number], [place]. tel:[phone] [facility], [address] [facility], [place], [address], [place] tel:[phone] [facility] , knee pains right (chief complaint) Knee pain, acute Jessica Blanco. [address] [facility], [id number] [place], [address], [place]. tel:[phone] Family History Family Member Type Diagnosis Age At Onset Father Problem (finding) Hepatitis C (Cause Of D eath) Sister Problem (finding) murder (Cause Of ) Son Problem (finding) Sister Problem (finding) Mother Problem (finding) osteoporosis Son Problem (finding) asthma (Cause Of ) Father Problem (finding) Payers Payer name Insurance type Covered green party ID Shahriar sagephuc(s) DENTAL [facility] CI [id number] Social History Type Description Quantity Date Captured [...] ant RT PCR. Due on due Goal Zoster vaccine ( ). Due on due Goal Self-Management Goals. Due on due Goal Colonoscopy. Due on due Goal Pap/HPV testing. Due on due Goal HIV 1/0/2 Ag/Ab With Reflex. Due on due Goal DEXA scan due Goal Hep B Surface Ab , Quant. Due on due Goal Hep B Core Ab, I gM. Due on due Goal Tdap/Td. Due on due Goal HCV reflex to Qu ant RT PCR. Due on due Goal SBIRT. Due on du e Goal FOBT/FIT. Due on due Goal Influenza [...] due Goal Colonoscopy. Due on due Goal HIV 1/0/2 Ag/Ab With Reflex. Due on due Goal SBIRT. Due on du e Goal FOBT/FIT. Due on due Goal Hep B Surface Ab , Quant. Due on due Goal SBIRT. Due on du e Goal Hep B Surface Ab , Quant. Due on due Goal Hep B Core Ab, I gM. Due on due Goal Tdap/Td. Due on due Goal FOBT/FIT. Due on due Goal Zoster vaccine ( ). Due on due Goal DEXA scan due Goal Colonoscopy. Due on due Goal Self-Management Goals. Due on due Goal HCV reflex to Qu ant RT PCR. Due on due Goal Influenza vaccin e. Due on due Goal Pap/HPV testing. Due on due Goal HIV 1/0/2 Ag/Ab With Reflex. Due on due Goal HCV reflex to [...] Ab, I gM. Due on due Goal Influenza vaccin e. Due on due Goal Colonoscopy. Due on due Goal Self-Management Goals. Due on due Goal Tdap/Td. Due on due Goal SBIRT. Due on du e Goal DEXA scan due Goal Pap/HPV testing. Due on due Goal Hep B Surface Ab , Quant. Due on due Goal Zoster vaccine ( 1st). Due on due Goal HIV 1/0/2 Ag/Ab With Reflex. Due on due Goal HCV reflex to Qu ant RT PCR. Due on due Goal Hep B Core Ab, I gM. Due on due Goal FOBT/FIT. Due on due Goal Tobacco cessation counseling completed Referral Ordered: Gastroenterology (related to Screening for colon cancer) ordered Referral Ordered: Lissy Orlando MD -Gynecology (related to Healthcare maintenance) ordered Referral Referred To: Lissy Orlando MD [address] [place] [address] [id number] [place], [phone] Ordered: Referrals: Gynecology. Lissy Orlanod MD. Evaluate and treat Appointment date/timeframe: 6 Months ordered Referral Referred To: [facility] [address] [place], [phone] Ordered: Referrals: Gastroenterology. Evaluate and treat Appointment date/timeframe: 6 Months ordered Future Order: Radiology Order Ma mmogram (Screen); Bilat, 2-view study of each breast, incl computer-aided detection when performed ([id number]), Ordered on: Ordered Future Order: Lab Order CBC w/di ff ([id number]), Ordered on: Ordered Future Order: Lab Order CMP ([id number]), Ordered on: Ordered Future Order: Lab Order Lipid Pa tonny ([id number]), Ordered on: Ordered Future Order: Lab Order Lyme, We miller Blot, Serum ([id number]), Ordered on: Ordered Future Order: Lab Order GENESIS ([id number]), Ordered on: Ordered Future Order: Lab Order Rheumato id Factor ([id number]), Ordered on: Ordered Future Order: Lab Order TSH ([id number]), Ordered on: Ordered Future Order: Lab Order UA w/dejon ro ([id number]), Ordered on: Ordered Future Order: Lab Order Vitamin D, 25-Hydroxy ([id number]), Ordered on: Ordered Future Order: Radiology Order Ma mmogram (Screening); Bilateral ([id number]), Ordered on: Ordered Future Order: Radiology Order Rj ne density study (by DEXA); appendicular skeleton (e.g., radius, wrist, heel) ([id number]), Ordered on: Ordered Future Order: Lab Order CMP ([id number]), Ordered on: Ordered Future Order: Lab Order Lipid Pa tonny ([id number]), Ordered on: Ordered History Of Present Illness [...] week. Related to Elevated blood pressure reading Refer to GI for colonoscopy. Rel ated to Screening for colon cancer Naproxen and Cyclobe nzaprine prescribed. Related to Myalgia Screening mammogram ordered. Rel ated to Screening [...] Acute mucoid otitis media of right ear Tylenol for fever an d pain. do not take more than the recommended dose daily. Related to Bronchitis Take medications as prescribed, do not skip doses. Related to Bronchitis Take medications as prescribed, do not skip doses. Related to Bronchitis Supportive Care Related to Bronc hitis You must finish all antibiotics as ordered, do not stop them because you feel better. Related to Bronchitis Practice good hygiene/ good hand washing Related to Bronchitis Go to ER is symptoms persist or worsen Related to Bronchitis Follow up if symptom s persist or worsen. Related to Bronchitis Take new medication as prescribe d Reviewed medications Patient understood a nd made informed decision Practice good hygiene Increase rest Apply ice to affected area Elevation Assessments Type Assessment Date No Information
[2024-07-10 20:59] VITALS: BP 153/70; PULSE 63; RESP 18; TEMP 36.3; O2SAT 100; BMI 25.6
[2024-07-10] MEDS: Acetaminophen 325 MG TABLET 975 MG PO (21:10)
[2024-07-10 22:30] VITALS: BP 127/78; PULSE 66; RESP 16; TEMP 36.4; O2SAT 100
--- NOTE | 2024-07-11 00:37 | ED_ITS ---
HPI - General Adult General Chief complaint: Extremity Injury, Lower Stated complaint: left ankle inj Time Seen by Provider: 07/11/24 00:37 History of Present Illness ED Provider: Quinn ALBERT narrative: The patient is a 59-year-old female who says that she twisted her left ankle getting off a bus at around 20:00 this evening. She has pain and swelling. She has no other injuries Related Data Allergies Allergy/AdvReac Type Severity Reaction Status Date / Time No Known Allergies Allergy Verified 07/10/24 21:03 Review of Systems Review of Systems: Yes all other systems are reviewed and are negative [facility] Social History Social History Advance Directives: No Advance Directives Information Provided: No Do you have a plan to hurt others: No Plan Physical Exam ED Vital Signs: Vital Signs - 24 hr 07/10/24 20:59 07/10/24 22:30 07/11/24 01:29 Temperature 97.3 F 97.6 F 97.4 F Pulse Rate 63 66 70 Respiratory Rate 18 16 16 Blood Pressure 153/70 H 127/78 142/76 H Pulse Oximetry 100 100 99 Oxygen Delivery Method Room Air Room Air Room Air BMI result Body Mass Index 25.6 Const Other: The patient had fallen asleep while waiting to be seen. The patient awoke easily to a normal mental status. HENMT Other: The appearance of the head and the face were unremarkable. Eyes General: appearance normal, both eyes and all related structures Neck Neck: Yes full ROM Resp Effort & Inspection: normal respiratory effort Skin Other: Skin of the left ankle is intact Neuro Other: The patient is awake and alert with a normal mental status. Cranial nerves are grossly intact. She has normal sensation of the left foot. Extrem Other: The patient has a swollen left ankle particularly over the lateral malleolus. Skin is intact. The foot is neurovascularly intact. The patient is tender at the left lateral malleolus. Medications Administered Discontinued Medications Generic Name Dose Route Start Last Admin Trade Name Freq PRN Reason Stop Dose Admin Acetaminophen 975 mg 07/10/24 21:08 07/10/24 21:10 Acetaminophen 325 Mg Tablet PO 07/10/24 21:09 975 mg ONCE ONE Administration Ibuprofen 400 mg 07/11/24 00:43 07/11/24 01:22 Ibuprofen 400 Mg Tablet PO 07/11/24 00:44 400 mg ONCE ONE Administration Medical Decision Making Medical Decision Making [facility] Narrative: The patient is a 59-year-old woman who twisted her left ankle and injured the ankle when she was stepping off bus. She has swelling primarily over the lateral malleolus. An x-ray shows an avulsion of the cortex of the lateral malleolus. Otherwise the bony structures are intact. The patient is neur ovascularly intact. She will be given a tall walking boot and crutches. She will be given a work note. She will be advised to try to be nonweightbearing on the left foot and to elevate the foot often. She should follow up with Orthopedics. Discharge Plan Discharge Clinical Impression: Closed fracture of left lateral malleolus Patient Disposition: Home, Self-Care Instructions: Ankle Fracture (ED) Additional Instructions: Although there is a small chip off the bone on the outside of your left ankle your injury is functionally a bad ankle sprain. Please wear the orthopedic boot when moving around. Use crutches when moving around to keep weight off your left foot. As much as you are able to try to avoid putting weight on your left foot. When you were sitting please keep the foot elevated so it is not on the ground. The more you can keep the foot elevated the more you will reduce the swelling of your injury. The more you can reduce the swelling of your injury the less pain you will experience. You may use 2 extra-strength acetaminophen (Tylenol) as needed for pain. You ma y do this up to 3 times per day. In addition to the acetaminophen you may use ibuprofen as well if necessary. Please contact the orthopedic office in the morning for a follow up appointment. I expect you will be given an appointment next week. Return to the emergency room if worse. Referrals: [facility] Orthopedic Surgeons [Provider Group] (left lateral malleolus fracture) Stand Alone Forms: Work/School Release Print Language: Khmer
[2024-07-11] MEDS: Ibuprofen 400 MG TABLET PO (01:22)
[2024-07-11 01:29] VITALS: BP 142/76; PULSE 70; RESP 16; TEMP 36.3; O2SAT 99
[2024-07-11 01:44] VITALS: BP 0/0; PULSE 0; RESP 0; TEMP -17.7; TEMP 0; O2SAT 0
== END 2024-07-11 01:45 | disposition home or self-care (01) ==
PROVIDERS: Emergency Provider Emergency Medicine
DX: S82.62XA Displaced fracture of lateral malleolus of left fibula, initial encounter for closed fracture (principal); X37.1XXA Tornado, initial encounter; Y93.89 Activity, other specified; Y92.89 Other specified places as the place of occurrence of the external cause; Y99.9 Unspecified external cause status; M25.572 Pain in left ankle and joints of left foot
CPT/HCPCS: 73610; 99283; 99284

== ENCOUNTER → 2024-07-10 21:30 | Outpatient (BNV) | payer MEDICAID, SELFPAY | PROVIDERS: Visit Provider Radiology Diagnostic Radiology | DX: S82.892A Other fracture of left lower leg, initial encounter for closed fracture (principal) | CPT/HCPCS: 73610 ==

== ENCOUNTER 2024-07-17 11:14 | Outpatient (AMB) | payer MEDICAID, SELFPAY ==
--- NOTE | 2024-07-17 11:36 | MHC.OFFVIS ---
Intake Visit Reasons: FC-Closed FC of LT-lateral malleolus DOI- 07/10/24 Intake Note: Ayah is a 59 year old female who presents today with tall walking boot and with her son and daughter in law for a evaluation of her left ankle injury, DOI 07/11/24. Patient reports when she was getting off a bus she rolled her ankle. She has sharp pain and some swelling. Patient is having numbness in her toes these past couple days. Allergies No Known Allergies Allergy (Verified 07/17/24 11:37) HPI HPI FC-Closed FC of LT-lateral malleolus DOI- 07/10/24: Details: Ms. Bautista is a 59-year-old female who presents to the office today for evaluation of a left ankle injury that she sustained on 07/10/2024. She reports that she was stepping off of a bus when she inverted her left ankle. She felt immediate pain and had difficulty with ambulation. She noticed immediate edema and ecchymosis. She was seen in the emergency department where she was placed into a tall walking boot and given crutches to assist with ambulation. [facility] Social History (Updated 07/17/24 @ 11:39 by Jason Covington) Alcohol intake: current Alcohol intake frequency: holidays/special occasions only Patient Tobacco Use Status: Never used Tobacco Current occupational status: employed Current occupation: production control assistant portfolio manager Review of Systems Const All systems reviewed & are unremarkable except as noted in HPI and below Physical Exam Const General: cooperative, healthy appearing and no acute distress Resp Effort & Inspection: normal respiratory effort and able to speak in complete sentences Cardio Rate: regular rate Peripheral pulses: Peripheral pulses 2+ throughout GI Palpation (GI): Soft to palpation Skin Lesions: no lesions Rashes: no rashes Extrem Other: Left ankle moderate edema both medial and lateral malleolus. There is ecchymosis scattered along the medial and lateral aspect of the heel and down into the dorsal aspect of the foot. Able to slightly dorsiflex and plantar flex but is limited due to pain and edema. Sensation is grossly intact but does report some mild numbness and tingling. Pedal pulse intact. Assessment & Plan Assessment & Plan (1) Closed left ankle fracture: Code(s): S82.892A - Other fracture of left lower leg, initial encounter for closed fracture Category: Medical Plan Ms. Bautista is a 59-year-old female who presents to the office today for evaluation of a left ankle injury that she sustained on 07/10/2024. She reports that she was stepping off of a bus when she inverted her left ankle. She felt immediate pain and had difficulty with ambulation. She noticed immediate edema and ecchymosis. She was seen in the emergency department where she was placed into a tall walking boot and given crutches to assist with ambulation. Patient will remain in a tall walking boot weight-bearing as tolerated. She is struggling to use crutches for ambulation. Therefore, I have given her a prescription for a front wheeled walker. I have also provided a prescription for physical therapy to work on gentle range of motion and gait training. I educated the patient that she should ice and elevate on 3 pillows above heart level as much as possible to assist with swelling. I would like to see her back in 4 weeks, sooner if needed. X-rays obtained in the office today reviewed by me, Belle Steve PA-C, and reveal lateral malleolar avulsion fracture. Orders: Orders XR ankle LT min 3V Today M25.579 - Pain in unspecified ankle and joints of unspecified foot PT Evaluation and Treatment Today S82.892A - Other fracture of left lower leg, initial encounter for closed fracture Medications: New walker Folding front wheeled walker 1 ea 0RF Lt ankle fracture S82.892A - Other fracture of left lower leg, initial encounter for closed fracture Coding Level of Care Code New Pt Level 4 (02408) Diagnoses Closed left ankle fracture S82.892A
--- OUTSIDE RECORDS SUMMARY | 2024-07-17 12:50 | XMS_ITS | Continuity of Care Document ---
Author Organization [facility] Address [address] [place] [address] Phone Care Team Providers Care Consumer Banker Name Role Phone No Information Unavailable Unavailable [...] Location Reason(s) For Visit Diagnoses Date Provider [address] tel:[phone] Location No Information No Information [place] [address], tel:[phone] [facility] No Information Raffucci Theodore. [address] [place] [address], [facility], . tel:[phone] [place] [address], tel:[phone] [facility] No Information Raffucci Theodore. [address] [place], [place], [facility], . tel:[phone], [facility], [place] tel:[phone] Dental Prakash No Information Raffucci Theodore. [address] [place], [place], [facility], [place]. tel:[phone] [place] [address], [address] [place] [address], [facility], tel:[phone] Dental Prakash No Information Raffucci Theodore. [address] [place], [place], [facility], [place]. tel:[phone] [place] [address], [address] [place] [address], [facility], tel:[phone] Dental Prakash No Information Raffucci Theodore. [address] [place], [place], [facility], . tel:[phone] [place] [address], [address] [place] [address], [facility], tel:[phone] [facility] left flank pain (chief complaint)W orried about BP (chief complaint) MyalgiaScreening for colon cancerScreening mammogram for breast cancerElevated blood pressure readingEncntr for general adult medical exam w/o abnormal findings Florin Hampton. [address] [place], [id number], . tel:[phone] [place] [address], [facility], [place] tel:[phone] [facility] Encounter for dental exam and cleaning w/o abnormal findings Raffucci Theodore. [address] [place], [place], [facility], [place]. tel:[phone] [place] [address], [address] [place] [address], [facility], [place] tel:[phone] [facility] Encounter for dental exam and cleaning w/o abnormal findings Raffucci Theodore. [address] [place], [place], [facility], [place]. tel:[phone] [place] [address] [place] [address], [facility], tel:[phone] [facility] Encounter for dental exam and cleaning w/o abnormal findings Jing Jaimes. [address] [place], [place], [facility], . tel:[phone] [place] [address], [address] [place] [address], [facility], tel:[phone] [facility] Encounter for dental exam and cleaning w/o abnormal findings Jing Jaimes. [address] [place], [place], [facility], . tel:[phone] [place] [address], [address] [place] [address], [facility], tel:[phone] [facility] Encounter for dental exam and cleaning w/o abnormal findings Jing Jaimes. [address] [place], [place], [facility], [place]. tel:[phone] [place] [address], [address] [place] [address], [facility], tel:[phone] [facility] Encounter for dental exam and cleaning w/o abnormal findings Jing Jaimes. [address] [place], [place], [facility], . tel:[phone] [place] [address], [facility], tel:[phone] [facility] Encounter for dental exam and cleaning w/o abnormal findings Kvng Hampton. [address] [place], [place], [id number], [place]. tel:[phone] [place] [address], [facility], tel:[phone] [facility] Encounter for dental exam and cleaning w/o abnormal findings Jing Jaimes. [address] [place], [place], [facility], . tel:[phone] [place] [address], [place], [address], tel:[phone] [facility] Encounter for dental exam and cleaning w/o abnormal findings Jing Jaimes. [address] [place], [address], [place]. tel:[phone] [facility], [address] [place] [address], [address], [place] tel:[phone] [facility] Encounter for dental exam and cleaning w/o abnormal findings Jing Jaimes. [address] [facility] [place], [facility], [place]. tel:[phone] [facility], [address] [place] [address], [facility], [place] tel:[phone] [facility] Encounter for dental exam and cleaning w/o abnormal findings Jing Jaimes. [address] [place], [place], [facility], [place]. tel:[phone] [place] [address], [address] [place] [address], [facility], [place] tel:[phone] [facility] Encounter for dental exam and cleaning w/o abnormal findings Jing Jaimes. [address] [place], [facility], [place]. tel:[phone] [facility], [address] [place] [address], [facility], [place] tel:[phone] [facility] Encounter for dental exam and cleaning w/o abnormal findings Jing Jaimes. [address] [place], [facility], [place]. tel:[phone] [facility], [address] [place] [address], [address], [place] tel:[phone] [facility] Encounter for dental exam and cleaning w/o abnormal findings Jing Jaimes. [address] [place], [place], [facility], [place]. tel:[phone] [facility], [address] [place] [address], [facility], tel:[phone] [facility] [place] Encounter for dental exam and cleaning w/o abnormal findings Bala Gomes. [address] [place], [place], [facility], . [facility], [address] [place] [address], [facility], tel:[phone] [facility] Encounter for dental exam and cleaning w/o abnormal findings Bala Gomes. [address] [place], [facility], . [facility], [address] [place] [address], [facility], tel:[phone] [facility] [place] Encounter for dental exam and cleaning w/o abnormal findings Bala Gomes. [address] [place], [facility], . [address], [facility], tel:[phone] [facility] [place] Encounter for dental exam and cleaning w/o abnormal findings Bala Gomes. [address] [place], [facility], . [address], [facility], tel:[phone] [facility] Adult test result f/u (chief complaint) Age-related osteoporosis without current pathological fractureVitamin D deficiencyBody mass index (BMI) 22.0-22.9, adult Iliana Pena. [address], [place], [place], [facility], . tel:[phone], [facility], tel:[phone] [facility] Adult joint pain (chief complaint) Pain, joint, multiple sitesScreening mammogram, encounter forHealthcare maintenanceBody mass index (BMI) 21.0-21.9, adult Iliana Pena. [address], [place], [place], [facility], . tel:[phone] [facility], [address] [place] [address], [facility], tel:[phone] [facility] Encounter for dental exam and cleaning w/o abnormal findings Bala Gomes. [address] [place], [address], [place]. [facility], [address] [place] [address], [address], tel:[phone] [facility] Encounter for dental exam and cleaning w/o abnormal findings Bala Gomes. [address] [place], [address], [place]. [facility], [address] [place] [address], [facility], tel:[phone] [facility] Encounter for dental exam and cleaning w/o abnormal findings Bala Gomes. [address] [place], [address], [place]. [facility], [address] [place] [address], [facility], tel:[phone] [facility] Encounter for dental exam and cleaning w/o abnormal findings Bala Gomes. [address] [place], [place], [facility], [place]. [facility], [address] [place] [address], [facility], tel:[phone] [facility] Encounter for dental exam and cleaning w/o abnormal findings Bala Gomes. [address] [place], [address], [place]. [facility], [address] [place] [address], [facility], tel:[phone] [facility] Encounter for dental exam and cleaning w/o abnormal findings Bala Gomes. [address] [place], [address], [place]. [address], [facility], tel:[phone] [facility] Encounter for dental exam and cleaning w/o abnormal findings Bala Gomes. [address] [place], [place], [facility], [place]. [facility], [address] [place] [address], [address] [place] [address] tel:[phone] [facility] [place] Encounter for dental exam and cleaning w/o abnormal findings Rafat Nguyen. [address] [place] [address], [facility], . tel:[phone] [place] [address], [address] [place] [address], [facility], tel:[phone] [facility] cold symptoms (chief complaint) Acute non-recurrent maxillary sinusitis Dixon Anny. [address], [id number] [place], [place], [facility], . tel:[phone] [place] [address], [address] [place] [address], [facility], tel:[phone] [facility] ear ache (chief complaint) Acute non-recurrent maxillary sinusitisAcute mucoid otitis media of right ear Jessica Blanco. [address] [facility], [id number] [place], [place], [facility], . tel:[phone] [place] [address], [address] [place] [address], [facility], tel:[phone] [facility] chest pain and cough (chief complaint) Bronchitis Jessica Sánchez. [address] [place], [place] [address]man Radha., [id number] [place], [place], [facility], . tel:[phone] [place] [address], [facility], tel:[phone] [facility] [place] DENTAL EXAMINATION Jing Jaimes. [address] [place], [place], [facility], . tel:[phone] [place] [address], [address] [place] [address], [facility], tel:[phone] [facility] physical (chief complaint) Annual Adult PhysicalPPD Screen Kim Silva. [address] [place] [address], [id number], [place]. tel:[phone] [facility], [address] [facility], [place], [address], [place] tel:[phone] [facility] , knee pains right (chief complaint) Knee pain, acute Jessica Blanco. [address] [facility], [id number] [place], [address], [place]. tel:[phone] Family History Family Member Type Diagnosis Age At Onset Father Problem (finding) Hepatitis C (Cause Of D eath) Sister Problem (finding) murder (Cause Of ) Son Problem (finding) Sister Problem (finding) Mother Problem (finding) osteoporosis Son Problem (finding) asthma (Cause Of ) Father Problem (finding) Payers Payer name Insurance type Covered libertarian ID Shahriar sagephuc(s) DENTAL [employer] [facility] CI [id number] Social History Type Description Quantity Date Captured Comments Sex Female Smoking Status No Information Sexual Orientation Straight or heterosexual May Gender Identity Female Chief Complaint And Reason For Visit No Information Plan Of Treatment Date Type Action Status Goal HCV reflex to Qu ant RT [...] on due Goal DEXA scan due Goal FOBT/FIT. Due on due Goal Influenza vaccin e. Due on due Goal Zoster vaccine ( 1st). Due on due Goal Self-Management Goals. Due [...] vaccine ( 1st). Due on due Goal SBIRT. Due on [...] due Goal Colonoscopy. Due on due Goal SBIRT. Due on [...] Ag/Ab With Reflex. Due on due Goal Self-Management Goals. Due on due Goal Hep B Core [...] ordered Referral Referred To: Lissy Orlando MD [address] [place] [address] [id number] [place], [address] [phone] Ordered: Referrals: Gynecology. Lissy Orlando MD. Evaluate and treat Appointment date/timeframe: 6 Months ordered Referral Referred To: [facility] [address] [place], [phone] Ordered: Referrals: Gastroenterology. Evaluate and treat Appointment date/timeframe: 6 Months ordered Future Order: Radiology Order Ma mmogram (Screen); Bilat, 2-view study of each breast, incl computer-aided detection when performed ([id number]), Ordered on: Ordered Future Order: Lab Order CBC w/di ff ([id number]), Ordered on: Ordered Future Order: Lab Order CMP ([id number]), Ordered on: Ordered Future Order: Lab Order Lipid Pa tonny ([id number]), Ordered on: Ordered Future Order: Lab Order Lyme, We [place]er Blot, Serum ([id number]), Ordered on: Ordered Future Order: Lab Order GENESIS ([id number]), Ordered on: Ordered Future Order: Lab Order Rheumato id Factor ([id number]), Ordered on: Ordered Future Order: Lab Order TSH ([id number]), Ordered on: Ordered Future Order: Lab Order UA w/dejon ro ([id number]), Ordered on: Ordered Future Order: Lab Order Vitamin D, 25-Hydroxy ([id number]), Ordered on: Ordered Future Order: Radiology Order Ma mmogram (Screening); Bilateral ([id number]), Ordered on: Ordered Future Order: Radiology Order Rj ne density study (by DEXA); appendicular skeleton (e.g., radius, wrist, heel) ([id number]), Ordered on: Ordered Future Order: Lab Order CMP ([id number]), Ordered on: Ordered Future Order: Lab Order Lipid Pa tonny ([id number]), Ordered on: Ordered History Of Present Illness [...] Fluids Related to Acute non-recurrent maxillary sinusitis Use tylenol or advil for fever or painsTake the antibiotic as reviewedFollow up as needed if worsening ear probelmsincrease clear fluids Related to Acute mucoid otitis media of right ear Increase your water intake to 100 cc per day to help thin the mucousTake sinus and congestion medicine consistentlyIf antibiotics prescribed take them until finishedMay consider using the REDDY POT to help drain the mucous from the sinusesAvoid allergensIf your a smoker, stop smoking Related to Acute non-recurrent maxillary sinusitis Take medications as prescribed, do not skip [...] s persist or worsen. Related to Bronchitis Elevation Take new medication as prescribe d Reviewed medications Patient understood a nd made informed decision Practice good hygiene Increase rest Apply ice to affected area Assessments Type Assessment Date No Information
== END 2024-07-17 11:58 | disposition home or self-care (01) ==
PROVIDERS: PCP Internal Medicine; Visit Provider Physician Assistant
DX: S82.892A Other fracture of left lower leg, initial encounter for closed fracture (principal)
CPT/HCPCS: 99204

== ENCOUNTER 2024-07-17 11:14 | Outpatient (REF) | payer MEDICAID, SELFPAY ==
--- NOTE | ~2024-07-17 | XR_ITS ---
EXAMINATION: XR ANKLE 3 OR MORE VIEWS LEFT HISTORY: M25.579 - Pain in unspecified ankle and joints of unspecified foot COMPARISON: Comparison is made with the prior examination dated 07/10/2024. FINDINGS: Three views of the left ankle are submitted. Osseous mineralization is normal. Again seen is a vertically oriented mildly displaced fracture of the distal fibula. The appearance is not significantly changed from the prior study. The joint spaces are preserved. There is mild persistent soft tissue swelling at the fracture site. XR/XR ankle LT min 3V IMPRESSION: Vertically oriented fracture of the distal fibula without change. Electronically signed by: Pedro Giron MD 07/19/2024 01:45 PM EST
--- OUTSIDE RECORDS SUMMARY | 2024-07-17 12:55 | XMS_ITS | Continuity of Care Document ---
Author Organization [facility] Address [address] [place] [address] Phone Care Team Providers Care Burling And Joining Supervisor Name Role Phone No Information Unavailable Unavailable [...] Location Reason(s) For Visit Diagnoses Date Provider [address] tel:[phone] No Location No Information No Information [place] [address], tel:[phone] [facility] No Information Raffucci Theodore. [address] [place] [address], [facility], . tel:[phone] [place] [address], tel:[phone] [facility] No Information Raffucci Theodore. [address] [place], [place], [facility], . tel:[phone], [facility], [place] tel:[phone] Dental Prakash No Information Raffucci Theodore. [address], [facility], [place]. tel:[phone] [place] [address], [address] [place] [address], [facility], tel:[phone] Dental Prakash No Information Raffucci Theodore. [address], [facility], [place]. tel:[phone] [place] [address], [address] [place] [address], [facility], tel:[phone] [facility] Prakash No Information Raffucci Theodore. [address], [facility], . tel:[phone] [place] [address], [address] [place] [address], [facility], tel:[phone] [facility] left flank pain (chief complaint)W orried about BP (chief complaint) MyalgiaScreening for colon cancerScreening mammogram for breast cancerElevated blood pressure readingEncntr for general adult medical exam w/o abnormal findings Florin Hampton. [address] [place], [id number], . tel:[phone] [place] [address], [facility], [place] tel:[phone] [facility] Encounter for dental exam and cleaning w/o abnormal findings Raffucci Theodore. [address], [facility], [place]. tel:[phone] [place] [address], [address] [place] [address], [facility], [place] tel:[phone] [facility] Encounter for dental exam and cleaning w/o abnormal findings Raffucci Theodore. [address], [facility], [place]. tel:[phone] [place] [address] [place] [address], [facility], tel:[phone] [facility] Encounter for dental exam and cleaning w/o abnormal findings Jing Jaimes. [address], [facility], . tel:[phone] [place] [address], [address] [place] [address], [facility], tel:[phone] [facility] Encounter for dental exam and cleaning w/o abnormal findings Jing Jaimes. [address], [facility], . tel:[phone] [place] [address], [address] [place] [address], [facility], tel:[phone] [facility] Encounter for dental exam and cleaning w/o abnormal findings Jing Jaimes. [address], [facility], [place]. tel:[phone] [place] [address], [address] [place] [address], [facility], tel:[phone] [facility] Encounter for dental exam and cleaning w/o abnormal findings Jing Jaimes. [address], [facility], . tel:[phone] [place] [address], [facility], tel:[phone] [facility] Encounter for dental exam and cleaning w/o abnormal findings Kvng Hampton. [address] [place], [place], [id number], [place]. tel:[phone] [place] [address], [facility], tel:[phone] [facility] Encounter for dental exam and cleaning w/o abnormal findings Jing Jaimes. [address], [facility], . tel:[phone] [place] [address], [place], [address], tel:[phone] [facility] Encounter for dental exam and cleaning w/o abnormal findings Jing Jaimes. [address] [place], [address], [place]. tel:[phone] [facility], [address] [place] [address], [address], [place] tel:[phone] [facility] Encounter for dental exam and cleaning w/o abnormal findings Jing Jaimes. 105 [facility] [place], [facility], [place]. tel:[phone] [facility], [address] [place] [address], [facility], [place] tel:[phone] [facility] Encounter for dental exam and cleaning w/o abnormal findings Jing Jaimes. [address], [facility], [place]. tel:[phone] [place] [address], [address] [place] [address], [facility], [place] tel:[phone] [facility] Encounter for dental exam and cleaning w/o abnormal findings Jing Jaimes. [address], [facility], [place]. tel:[phone] [facility], [address] [place] [address], [facility], [place] tel:[phone] [facility] Encounter for dental exam and cleaning w/o abnormal findings Jing Jaimes. [address], [facility], [place]. tel:[phone] [facility], [address] [place] [address], [address], [place] tel:[phone] [facility] Encounter for dental exam and cleaning w/o abnormal findings Jing Jaimes. [address], [facility], [place]. tel:[phone] [facility], [address] [place] [address], [facility], tel:[phone] [facility] [place] Encounter for dental exam and cleaning w/o abnormal findings Bala Gomes. [address], [facility], . [facility], [address] [place] [address], [facility], tel:[phone] [facility] Encounter for dental exam and cleaning w/o abnormal findings Bala Gomes. [address], [facility], . [facility], [address] [place] [address], [facility], tel:[phone] [facility] [place] Encounter for dental exam and cleaning w/o abnormal findings Bala Gomes. [address], [facility], . [address], [facility], tel:[phone] [facility] [place] Encounter for dental exam and cleaning w/o abnormal findings Bala Gomes. [address], [facility], . [address], [facility], tel:[phone] [facility] Adult test result f/u (chief complaint) Age-related osteoporosis without current pathological fractureVitamin D deficiencyBody mass index (BMI) 22.0-22.9, adult Iliana Pena. [address], [place], [place], [facility], . tel:[phone], [facility], tel:[phone] [facility] Adult joint pain (chief complaint) Pain, joint, multiple sitesScreening mammogram, encounter forHealthcare maintenanceBody mass index (BMI) 21.0-21.9, adult Iliana Pena. [address], [place], [place], [facility], . tel:[phone] [facility], [address] [place] [address], [facility], tel:[phone] [facility] Encounter for dental exam and cleaning w/o abnormal findings Bala Gomes. [address] [place], [address], [place]. [facility], [address] [place] [address], [address], tel:[phone] [facility] Encounter for dental exam and cleaning w/o abnormal findings Bala Gomes. [address] [place], [address], [place]. [facility], [address] [place] [address], [facility], tel:[phone] [facility] Encounter for dental exam and cleaning w/o abnormal findings Bala Gomes. [address] [place], [address], [place]. [facility], [address] [place] [address], [facility], tel:[phone] [facility] Encounter for dental exam and cleaning w/o abnormal findings Bala Gomes. [address], [facility], [place]. [facility], [address] [place] [address], [facility], tel:[phone] [facility] Encounter for dental exam and cleaning w/o abnormal findings Bala Gomes. [address] [place], [address], [place]. [facility], [address] [place] [address], [facility], tel:[phone] [facility] Encounter for dental exam and cleaning w/o abnormal findings Bala Gomes. [address] [place], [address], [place]. [address], [facility], tel:[phone] [facility] Encounter for dental exam and cleaning w/o abnormal findings Bala Gomes. [address], [facility], [place]. [facility], [address] [place] [address], [address] [place] [address] tel:[phone] [facility] [place] Encounter for dental exam and cleaning w/o abnormal findings Rafat Nguyen. [address] [place] [address], [facility], . tel:[phone] [place] [address], [address] [place] [address], [facility], tel:[phone] [facility] cold symptoms (chief complaint) Acute non-recurrent maxillary sinusitis Dixon Anny. [address] [facility] Radha, [id number] [place], [place], [facility], . tel:[phone] [place] [address], [address] [place] [address], [facility], tel:[phone] [facility] ear ache (chief complaint) Acute non-recurrent maxillary sinusitisAcute mucoid otitis media of right ear Jessica Blanco. [address] [facility], [id number] [place], [place], [facility], . tel:[phone] [place] [address], [address] [place] [address], [facility], tel:[phone] [facility] chest pain and cough (chief complaint) Bronchitis Jessica Sánchez. [address] [place], [place] [address]man Radha., [id number] [place], [place], [facility], . tel:[phone] [place] [address], [facility], tel:[phone] [facility] DENTAL EXAMINATION Jing Jaimes. [address] [place], [facility], . tel:[phone] [place] [address], [address] [place] [address], [facility], tel:[phone] [facility] physical (chief complaint) Annual Adult PhysicalPPD Screen Kim Silva. [address] [place] [address], [id number], [place]. tel:[phone] [facility], [address] [facility], [place], [address], [place] tel:[phone] [facility] , knee pains right (chief complaint) Knee pain, acute Jessica Blanco. [address] [facility], [id number] [place], [address], [place]. tel:[phone] Family History Family Member Type Diagnosis Age At Onset Father Problem (finding) Hepatitis C (Cause Of D eath) Sister Problem (finding) murder (Cause Of ) Son Problem (finding) Sister Problem (finding) Mother Problem (finding) osteoporosis Son Problem (finding) asthma (Cause Of ) Father Problem (finding) Payers Payer name Insurance type Covered democrat ID Shahriar sagephuc(s) DENTAL [facility] CI [id number] Social History Type Description Quantity Date Captured [...] ordered Referral Referred To: Lissy Orlando MD [address] [place] [address] [id number] [place], [address] [phone] Ordered: Referrals: Gynecology. Lissy Orlando MD. Evaluate and treat Appointment date/timeframe: 6 Months ordered Referral Referred To: [facility] [address] [place], [address] [phone] Ordered: Referrals: Gastroenterology. Evaluate and treat Appointment date/timeframe: 6 Months ordered Future Order: Radiology Order Ma mmogram (Screen); Bilat, 2-view study of each breast, incl computer-aided detection when performed ([id number]), Ordered on: Ordered Future Order: Lab Order CBC w/di ff ([id number]), Ordered on: Ordered Future Order: Lab Order CMP ([id number]), Ordered on: Ordered Future Order: Lab Order Lipid Pa tonny ([id number]), Ordered on: Ordered Future Order: Lab Order Lyme, We miller Blot, Serum ([id number]), Ordered on: Ordered Future Order: Lab Order GENESIS ([id number]), Ordered on: Ordered Future Order: Lab Order Rheumato id Factor ([id number]), Ordered on: Ordered Future Order: Lab Order TSH ([id number]), Ordered on: Ordered Future Order: Lab Order UA w/dejon ro ([id number]), Ordered on: Ordered Future Order: Lab Order Vitamin D, 25-Hydroxy ([id number]), Ordered on: Ordered Future Order: Radiology Order Ma mmogram (Screening); Bilateral ([id number]), Ordered on: Ordered Future Order: Radiology Order Rj ne density study (by DEXA); appendicular skeleton (e.g., radius, wrist, heel) ([id number]), Ordered on: Ordered Future Order: Lab Order CMP ([id number]), Ordered on: Ordered Future Order: Lab Order Lipid Pa tonny ([id number]), Ordered on: Ordered History Of Present Illness [...]
== END 2024-07-17 11:15 | disposition home or self-care (01) ==
LOC: HO.HOSX 11:14
PROVIDERS: PCP Internal Medicine; Visit Provider Physician Assistant
DX: M25.572 Pain in left ankle and joints of left foot (principal); S82.892A Other fracture of left lower leg, initial encounter for closed fracture
CPT/HCPCS: 73610; 99212

== ENCOUNTER → 2024-07-17 11:23 | Outpatient (BNV) | payer MEDICAID, SELFPAY | PROVIDERS: PCP Internal Medicine; Visit Provider Radiology Diagnostic Radiology | DX: S82.892A Other fracture of left lower leg, initial encounter for closed fracture (principal) | CPT/HCPCS: 73610 ==

== ENCOUNTER 2024-08-15 07:45 | Outpatient (REF) | payer MEDICAID, SELFPAY ==
--- NOTE | ~2024-08-15 | XR_ITS ---
CLINICAL HISTORY: M25.579 - Pain in unspecified ankle and joints of unspecified foot 3 view left ankle Comparison: None Findings: Decreased bone mineralization. Nondisplaced mildly comminuted fracture of the lateral process of the talus seems to be acute to subacute (if clinically indicated further evaluation with ankle CT may be of value). Mildly displaced fracture (acute to subacute) of the distal fibula (distal to the syndesmosis). Mild periosteal reaction along the distal fibula and lateral aspect of the distal tibia may be reactive in nature. Normal alignment. Small ankle joint effusion. Small lower pretibial phlebolith. Subtle vascular calcifications. IMPRESSION: Nondisplaced mildly comminuted fracture of the lateral process of the talus seems to be acute to subacute (if clinically indicated further evaluation with ankle CT may be of value, especially to rule out a questionable fracture line of the medial aspect of the talus on 1 of the views). Apparent mildly displaced fracture (acute to subacute) of the distal fibula (distal to the syndesmosis). This document has been electronically signed by: Mary Rodarte MD on 08/16/2024 13:44:10
--- OUTSIDE RECORDS SUMMARY | 2024-08-15 07:48 | XMS_ITS | Encounter Summary ---
Author Organization [employer] Address [address] [facility] 7t [place] [address] Care Team Providers Care Crimping Machine Operator Name Role Phone Yuniel Chun MD Primary Care Prov ider Encounter Details Date Type Department Care Team (Late st Contact Info) Description 08/01/2024 3:30 PM EST Telemedicine [facility] [address], [place] [phone] Yuniel Chun MD [address] [place] [address] Elevated blood pressure reading (Primary Dx); Dietary counseling; Exercise counseling Social History Tobacco Use Types Packs/Day Years Used Date Smoking Tobacco: Former Cigarettes 0.5 26 S tarted: 1992 Smokeless Tobacco: Never Alcohol Use Standard Drinks/Week Comments Yes 0 (1 standard drink = 0.6 oz pure alcohol) social beer, less than once a month Depression Answer Date Recorded Patient Health Questionnaire-9 Score 6 08/01/2024 Patient Health Questionnaire-9 Score 6 08/01/2024 Last PHQ-9: Questionnaire Data Not on file 0 08/01/2024 Housing Stability Answer Date Recorded What is your housing situation today? I have caitlyn matamoros 05/11/[address] you li ve. Do you have problems with any of the following? None of the above 05/11/2024 Food Insecurity Answer Date Recorded Within the past 12 months, y ou worried that your food would run out before you got money to buy more: Never True 05/11/2024 Within the past 12 months,th e food you bought just didn't last and you didn't have enough money to get more: Never True Transportation Answer Date Recorded In the past 12 months, has l ack of transportation kept you from medical appts, meetings, work or from getting things needed for daily living? No 05/11/2024 Utilities Answer Date Recorded In the past 12 months, has t he electric, gas, oil or water company threatened to shut off services in your home? No 05/11/2024 Depression Answer Date Recorded Patient Health Questionnaire-2 Score 2 08/01/2024 Internet Access Answer Date Recorded Internet Access Q1 Yes 05/11/2024 Internet Access Q2 Not on file 05/11/2024 Comments Unknown Sex and Gender Information Value Date Recorded Sex Assigned at Female 03/30/2024 3:21 PM EDT Legal Sex Female 3:21 PM EDT Gender Identity Female 03/30/2024 3:21 PM EDT Sexual Orientation Straight 05/11/2024 1: 07 PM EDT documented as of this encounter Last Filed Vital Signs Vital Sign Reading Time Taken Comments Blood Pressure 132/70 08/01/2024 3:41 PM EST Pulse - - Temperature - - Respiratory Rate - - Oxygen Saturation - - Inhaled Oxygen Concentration - - Weight - - Height - - Body Mass Index - - documented in this encounter Progress Notes * Yuniel Jalloh MD - 08/01/2024 3:30 PM EST Subjective Patient ID: Ayah Bautista is a 59 y.o. female who presents for No chief complaint on file.. Hypertension This is a chronic problem. Pertinent negatives include no chest pain, headaches, palpitations, peripheral edema or shortness of breath. Review of Systems Respiratory: Negative for shortness of breath. Cardiovascular: Negative for chest pain and palpitations. Neurological: Negative for headaches. Objective Physical Exam Neurological: General: No focal deficit present. Mental Status: She is oriented to person, place, and time. Psychiatric: Mood and Affect: Mood normal. Behavior: Behavior normal. Assessment/Plan Problem List Items Addressed This Visit Elevated blood pressure reading - Primary Has remained below 140/90, continue low sodium diet and exercise as tolerated, keep bp log, call back if above target Other Visit Diagnoses Dietary counseling Exercise counseling documented in this encounter Miscellaneous Notes * Assessment & Plan Note - Yuniel Jalloh MD - 08/02/2024 8:39 AM ESTAssociated Problem(s): Elevated blood pressure reading Has remained below 140/90, continue low sodium diet and exercise as tolerated, keep bp log, call back if above target documented in this encounter Plan of Treatment Not on file documented as of this encounter Visit Diagnoses Diagnosis Elevated blood pressure reading- Primary Elevated blood pressure reading without diagnosis of hypertension Dietary counseling Dietary surveillance and counseling Exercise counseling documented in this encounter Additional Health Concerns Assessment Noted Time PHQ-9 Depression Total Score: 6 08/01/19 25 1:58 PM EST documented as of this encounter Care Teams Crimping Machine Operator Relationship Specialty Start Date End Date Yuniel Chun MD [address] [place] [id number] PCP - General Internal Medicine 05/11/24 documented as of this encounter
--- OUTSIDE RECORDS SUMMARY | 2024-08-15 07:48 | XMS_ITS | Encounter Summary ---
Author Organization [employer] Address [address] [facility] 7t [place] [address] Care Team Providers Care Office Executive Name Role Phone Yuniel Chun MD Primary Care Prov ider Encounter Details Date Type Department Care Team (Latest Contact Info) Description 08/01/2024 Travel Social History Tobacco Use Types Packs/Day Years [...] is your housing situation today? I have caityln matamoros 05/11/[address] you [...] PM EDT documented as of this encounter Plan of Treatment Not on file documented as of this encounter Visit Diagnoses Not on filedocumented in this encounter Additional Health Concerns Assessment Noted Time PHQ-9 Depression Total Score: 6 08/01/19 25 1:58 PM EST documented as of this encounter Care Teams Office Executive Relationship Specialty Start Date End Date Yuniel Chun MD [address] [place] [id number] PCP - General Internal Medicine 05/11/24 documented as of this encounter
--- OUTSIDE RECORDS SUMMARY | 2024-08-15 07:48 | XMS_ITS | Continuity of Care Document ---
Author Organization [facility] Address [address] [place] [address] Phone Care Team Providers Care Prosthetics Lab Technician Name Role Phone No Information Unavailable Unavailable [...] Location Reason(s) For Visit Diagnoses Date Provider [address] tel:[phone] Location No Information No Information [place] [address], tel:[phone] [facility] No Information Raffucci Theodore. [address] [place] [address], [facility], . tel:[phone] [place] [address], tel:[phone] [facility] No Information Raffucci Theodore. [address], [place], [facility], . tel:[phone], [facility], [place] tel:[phone] [facility] Prakash No Information Raffucci Theodore. [address], [place], [facility], [place]. tel:[phone] [place] [address], [address] [place] [address], [facility], tel:[phone] Dental Prakash No Information Raffucci Theodore. [address], [place], [facility], [place]. tel:[phone] [place] [address], [address] [place] [address], [facility], tel:[phone] [facility] Prakash No Information Raffucci Theodore. [address], [place], [facility], . tel:[phone] [place] [address], [address] [place] [address], [facility], tel:[phone] [facility] left flank pain (chief complaint)W orried about BP (chief complaint) MyalgiaScreening for colon cancerScreening mammogram for breast cancerElevated blood pressure readingEncntr for general adult medical exam w/o abnormal findings Florin Hampton. [address] [place], [id number], . tel:[phone] [place] [address], [facility], [place] tel:[phone] [facility] Encounter for dental exam and cleaning w/o abnormal findings Raffucci Theodore. [address], [place], [facility], [place]. tel:[phone] [place] [address], [address] [place] [address], [facility], [place] tel:[phone] [facility] Encounter for dental exam and cleaning w/o abnormal findings Raffucci Theodore. [address], [place], [facility], [place]. tel:[phone] [place] [address] [place] [address], [facility], tel:[phone] [facility] Encounter for dental exam and cleaning w/o abnormal findings Jing Jaimes. [address], [place], [facility], . tel:[phone] [place] [address], [address] [place] [address], [facility], tel:[phone] [facility] [place] Encounter for dental exam and cleaning w/o abnormal findings Jing Jaimes. [address], [place], [facility], . tel:[phone] [place] [address], [address] [place] [address], [facility], tel:[phone] [facility] Encounter for dental exam and cleaning w/o abnormal findings Jing Jaimes. [address], [place], [facility], [place]. tel:[phone] [place] [address], [address] [place] [address], [facility], tel:[phone] [facility] Encounter for dental exam and cleaning w/o abnormal findings Jing Jaimes. [address], [facility], . tel:[phone] [place] [address], [facility], tel:[phone] [facility] Encounter for dental exam and cleaning w/o abnormal findings Kvng Hampton. [address] [place], [place], [id number], [place]. tel:[phone] [place] [address], [facility], tel:[phone] [facility] Encounter for dental exam and cleaning w/o abnormal findings Jing Jaimes. [address], [facility], . tel:[phone] [place] [address], [place], [address], tel:[phone] [facility] Encounter for dental exam and cleaning w/o abnormal findings Jing Jaimes. [address] [place], [address], [place]. tel:[phone] [facility], [address] [place] [address], [address], [place] tel:[phone] [facility] Encounter for dental exam and cleaning w/o abnormal findings Jing Jaimes. [address] [facility] [place], [facility], [place]. tel:[phone] [facility], [address] [place] [address], [facility], [place] tel:[phone] [facility] Encounter for dental exam and cleaning w/o abnormal findings Jing Jaimes. [address], [facility], [place]. tel:[phone] [place] [address], [address] [place] [address], [facility], [place] tel:[phone] [facility] Encounter for dental exam and cleaning w/o abnormal findings Jing Jaimes. [address], [facility], [place]. tel:[phone] [facility], [address] [place] [address], [facility], [place] tel:[phone] [facility] Encounter for dental exam and cleaning w/o abnormal findings Jing aJimes. [address], [facility], [place]. tel:[phone] [facility], [address] [place] [address], [address], [place] tel:[phone] [facility] Encounter for dental exam and cleaning w/o abnormal findings Jing Jaimes. [address], [facility], [place]. tel:[phone] [facility], [address] [place] [address], [facility], tel:[phone] [facility] [place] Encounter for dental exam and cleaning w/o abnormal findings Bala Gomes. [address], [facility], . [facility], [address] [place] [address], [facility], tel:[phone] [facility] Encounter for dental exam and cleaning w/o abnormal findings Bala Gomes. [address], [facility], . [facility], [address] [place] [address], [facility], tel:[phone] [facility] [place] Encounter for dental exam and cleaning w/o abnormal findings Bala Gomes. [address], [facility], . [address], [facility], tel:[phone] [facility] [place] Encounter for dental exam and cleaning w/o abnormal findings Bala Gomes. [address], [facility], . [address], [facility], tel:[phone] [facility] Adult test result f/u (chief complaint) Age-related osteoporosis without current pathological fractureVitamin D deficiencyBody mass index (BMI) 22.0-22.9, adult Iliana Pena. [address], [place], [place], [facility], . tel:[phone], [facility], tel:[phone] [facility] Adult joint pain (chief complaint) Pain, joint, multiple sitesScreening mammogram, encounter forHealthcare maintenanceBody mass index (BMI) 21.0-21.9, adult Iliana Pena. [address], [place], [place], [facility], . tel:[phone] [facility], [address] [place] [address], [facility], tel:[phone] [facility] Encounter for dental exam and cleaning w/o abnormal findings Bala Gomes. [address] [place], [address], [place]. [facility], [address] [place] [address], [address], tel:[phone] [facility] Encounter for dental exam and cleaning w/o abnormal findings Bala Gomes. [address] [place], [address], [place]. [facility], [address] [place] [address], [facility], tel:[phone] [facility] Encounter for dental exam and cleaning w/o abnormal findings Bala Gomes. [address] [place], [address], [place]. [facility], [address] [place] [address], [facility], tel:[phone] [facility] Encounter for dental exam and cleaning w/o abnormal findings Bala Gomes. [address], [place], [facility], [place]. [facility], [address] [place] [address], [facility], tel:[phone] [facility] Encounter for dental exam and cleaning w/o abnormal findings Bala Gomes. [address] [place], [address], [place]. [facility], [address] [place] [address], [facility], tel:[phone] [facility] Encounter for dental exam and cleaning w/o abnormal findings Bala Gomes. [address] [place], [address], [place]. [address], [facility], tel:[phone] [facility] Encounter for dental exam and cleaning w/o abnormal findings Bala Gomes. [address], [facility], [place]. [facility], [address] [place] [address], [address] [place] [address] tel:[phone] [facility] [place] Encounter for dental exam and cleaning w/o abnormal findings Rafat Nguyen. [address] [place] [address], [facility], . tel:[phone] [place] [address], [address] [place] [address], [facility], tel:[phone] [facility] cold symptoms (chief complaint) Acute non-recurrent maxillary sinusitis Dixon Anny. [address] [facility], [id number] [place], [place], [facility], . tel:[phone] [place] [address], [address] [place] [address], [facility], tel:[phone] [facility] ear ache (chief complaint) Acute non-recurrent maxillary sinusitisAcute mucoid otitis media of right ear Jessica Blanco. [address] [facility], [id number] [place], [place], [facility], . tel:[phone] [address] [place] [address], [address] [place] [address], [facility], tel:[phone] [facility] chest pain and cough (chief complaint) Bronchitis Jessica Sánchez. [address] [place], [place] [address]man Radha., [id number] [place], [place], [facility], . tel:[phone] [address] [place] [address], [facility], tel:[phone] [facility] Jing Jaimes. [address], [place], [facility], . tel:[phone] [place] [address], [address] [place] [address], [facility], tel:[phone] [facility] physical (chief complaint) Annual Adult PhysicalPPD Screen Kim Silva. [address] [place] [address], [id number], [place]. tel:[phone] [facility], [address] [facility], [place], [address], [place] tel:[phone] [facility] , knee pains right (chief complaint) Knee pain, acute Jessica Blanco. [address] [facility], [id number] [place], [address], [place]. tel:[phone] Family History Family Member Type Diagnosis Age At Onset Father Problem (finding) Hepatitis C (Cause Of D eath) Sister Problem (finding) murder (Cause Of ) Son Problem (finding) Sister Problem (finding) Mother Problem (finding) osteoporosis Son Problem (finding) asthma (Cause Of ) Father Problem (finding) Payers Payer name Insurance type Covered green party ID Shahriar ramos(s) DENTAL [employer] [facility] CI [id number] Social History Type Description Quantity Date Captured [...] to Healthcare maintenance) ordered Referral Referred To: [facility] [address] [place], [phone] Ordered: Referrals: Gastroenterology. Evaluate and treat Appointment date/timeframe: 6 Months ordered Referral Referred To: Lissy Orlando MD [address] [facility] [id number] [place], [phone] Ordered: Referrals: Gynecology. Lissy Orlando MD. Evaluate and treat Appointment date/timeframe: 6 Months ordered Future Order: Radiology Order Ma mmogram (Screen); Bilat, 2-view study of each breast, incl computer-aided detection when performed ([id number]), Ordered on: Ordered Future Order: Lab Order CBC w/di ff ([id number]), Ordered on: Ordered Future Order: Lab Order CMP ([id number]), Ordered on: Ordered Future Order: Lab Order Lipid Pa tonny ([id number]), Ordered on: Ordered Future Order: Lab Order Lyme, We miller Blot, Serum ([id number]), Ordered on: Ordered Future Order: Lab Order GENESIS ([id number]), Ordered on: Ordered Future Order: Lab Order Rheumato id Factor ([id number]), Ordered on: Ordered Future Order: Lab Order TSH ([id number]), Ordered on: Ordered Future Order: Lab Order UA w/dejon ro ([id number]), Ordered on: Ordered Future Order: Lab Order Vitamin D, 25-Hydroxy ([id number]), Ordered on: Ordered Future Order: Radiology Order Ma mmogram (Screening); Bilateral ([id number]), Ordered on: Ordered Future Order: Radiology Order Rj ne density study (by DEXA); appendicular skeleton (e.g., radius, wrist, heel) ([id number]), Ordered on: Ordered Future Order: Lab Order CMP ([id number]), Ordered on: Ordered Future Order: Lab Order Lipid Pa tonny ([id number]), Ordered on: Ordered History Of Present Illness Encounter Date Complaint History Of Prese nt Illness Worried about BP Has been having high blood pressure reading at home.No headaches , chest pain or pressure. left flank pain Has been having left flank pain intermittently for the last 2 months. Is achy in nature and feels like the muscles are tensed.No dysuria, fever, chills or nausea. No change in odor or color of urine. test result f/u Patient presents to follow-up [...] smoking Related to Acute non-recurrent maxillary sinusitis Supportive Care Related to Bronc hitis Take [...]
--- OUTSIDE RECORDS SUMMARY | 2024-08-15 07:48 | XMS_ITS | Encounter Summary ---
Author Organization [employer] Address [address] [facility] 7t [place] [address] Care Team Providers Care Help Desk Technician Name Role Phone Yuniel Chun MD Primary Care Prov ider Reason for Visit * Reason Onset Date Comments Nurse Triage 07/13/2024 Encounter Details Date Type Department Care Team (Late st Contact Info) Description 07/13/2024 Telephone [facility] [address] [place] [address] Yuniel Chun MD [address] [place], [place] [phone] Nurse Triage Social History Tobacco Use Types Packs/Day Years Used Date Smoking Tobacco: Former Cigarettes 0.5 26 S tarted: 1992 Smokeless Tobacco: Never Alcohol Use Standard Drinks/Week Comments Yes 0 (1 standard drink = 0.6 oz pure alcohol) social beer, less than once a month Depression Answer Date Recorded Patient Health Questionnaire-9 Score 8 06/19/2024 Patient Health Questionnaire-9 Score 8 06/19/2024 Last PHQ-9: Questionnaire Data Not on file 1 08/20/2023 Housing Stability Answer Date Recorded What is [...] Answer Date Recorded Patient Health Questionnaire-2 Score 3 06/19/2024 Internet Access Answer Date Recorded Internet Access Q1 Yes 05/11/2024 Internet Access Q2 Not on file 05/11/2024 Comments Unknown Sex and Gender Information Value Date Recorded Sex Assigned at Female 03/30/2024 3:21 PM EDT Legal Sex Female 3:21 PM EDT Gender Identity Female 03/30/2024 3:21 PM EDT Sexual Orientation Straight 05/11/2024 1: 07 PM EDT documented as of this encounter Miscellaneous Notes * Telephone Encounter - Connie Chung RN - 07/14/2024 10:24 AM EST TC from pt reporting currently in pain today . Has been taking tylenol for fracture ankle pain but is now getting an upset stomach. Patient calling to report ED visit on : Date: 07/10/24 Hospital: [facility] ED Seen for: Fractured left ankle Called pt. She states she chip fractured her left ankle on 07/11/24 and went to [facility] ED. Pt has beentaking Tylenol 650mg every 4 hours and also Motrin 800mg every 8 hours. Pt states it is starting toupset stomach and she is requesting an alternative pain medication for Ankle. Please scan [facility] ED note in pt. Chart for 2pm televisit. Protocol Used: Ankle Injury (Adult) Protocol-Based Disposition: televisit at 2pm today with Dr. Smith Video visit offer not recorded Positive Triage Question: * Ankle pain has not improved after 3 days * All higher-acuity triage questions were negative Care Advice Discussed: * Use a Cold Pack for Pain, Swelling, or Bruising * Telephone Encounter - Ham Fitzpatrick - 07/14/2024 9:04 AM EST TC from pt reporting currently in pain today . Has been taking tylenol for fracture ankle pain but is now getting an upset stomach. Patient calling to report ED visit on : Date: 07/10/24 Hospital: [facility] ED Seen for: Fractured left ankle * Telephone Encounter - Ham Amari - 07/13/2024 8:22 AM EST Patient calling to report ED visit on : Date: 07/10/24 Hospital: [facility] ED Seen for: Fractured left ankle Pt states was referred to [facility] Orthopedic surgeons on [address] in [place] . Visit is scheduled 07/27/24 . Pt wondering if pcp can refer else where , where she can be seen sooner. documented in this encounter Plan of Treatment Not on file documented as of this encounter Visit Diagnoses Not on filedocumented in this encounter Additional Health Concerns Assessment Noted Time PHQ-9 Depression Total Score: 8 06/19/20 24 3:45 PM EST documented as of this encounter Care Teams Help Desk Technician Relationship Specialty Start Date End Date Yuniel Chun MD [address] [place] [id number] PCP - General Internal Medicine 05/11/24 documented as of this encounter
--- OUTSIDE RECORDS SUMMARY | 2024-08-15 07:48 | XMS_ITS | Encounter Summary ---
Author Organization [employer] Address [address] [place] [address] Care Team Providers Care Baking Assistant Name Role Phone Yuniel Chun MD Primary Care Prov ider Encounter Details Date Type Department Care Team (Late st Contact Info) Description 07/17/2024 Orders Only [facility] External Provider, [facility] Social History Tobacco Use Types Packs/Day Years [...] on file documented as of this encounter Procedures Procedure Name Priority Date/Time Associated Diagnosis Comments XR ANKLE 3+ VIEWS LEFT Routine 07/17/2024 11:23 AM EST documented in this encounter Results * XR Ankle 3+ Views Left (07/17/2024 11:23 AM EST) Anatomical Region Laterality Modality Lower Extremities, Ankle Left Radiogr aphic Imaging 07/17/2024 11:2 3 AM EST Narrative 07/19/2024 1:48 PM EST ? [facility] ? [address] ?[place], [place] [address] ?XRay Report ? Signed ? Patient: MicheleAyah ?MR#: [id number] ?? 29 ? : 1965 ?Acct:[id number] ? Age/Sex: 59 / F ?ADM Date: 07/17/24 ? Loc: HO.HOSX ? Attending Dr: Belle Steve PA-C ? Ordering Physician: Belle Steve PA-C ?? Date of Service: 07/17/24 ?? Procedure(s): XR ankle LT min 3V ?? Accession Number(s): [id number] ? cc: Yuniel Chun MD; Belle Steve PA-C ? EXAMINATION: ??XR ANKLE 3 OR MORE VIEWS LEFT ? HISTORY: M25.579 - Pain in unspecified ankle and joints of unspecified ?? foot ? COMPARISON: Comparison is made with the prior examination dated ?? 07/10/2024. ? FINDINGS: ? Three views of the left ankle are submitted. ??Osseous mineralization is ?? normal. ??Again seen is a vertically oriented mildly displaced fracture ?? of the distal fibula. The appearance is not significantly changed from ?? the prior study. ??The joint spaces are preserved. ??There is mild ?? persistent soft tissue swelling at the fracture site. ? XR/XR ankle LT min 3V ?? IMPRESSION: ? Vertically oriented fracture of the distal fibula without change. ? Electronically signed by: ??Pedro Giron MD ??07/19/2024 01:45 PM EST ?? RP ? Dictated By: ?Pedro Giron MD ? Signed By: ?<Electronically signed by Pedro Giron MD in OV> ?07/19/24 1345 ? DD/ 1123 ? TD/TT: 07/17/24 1125 ? [employer]: ? Procedure Note Brent Cha - 07/19/2024 [facility] [address] [place] [address] [address] [place] [address] XRay Report Signed Patient: Ayah BautistaMR#: [id number] [birth year] : 1965Acct:[id number] Age/Sex: 59 / FADM Date: 07/17/24 Loc: HO.MICH[facility] Attending Dr: Belle Steve PA-C Ordering Physician: Belle Steve PA-C Date of Service: 07/17/24 Procedure(s): XR ankle LT min 3V Accession Number(s): [id number] cc: Yuniel Chun MD; Belle Steve PA-C EXAMINATION: XR ANKLE 3 OR MORE VIEWS LEFT HISTORY: M25.579 - Pain in unspecified ankle and joints of unspecified foot COMPARISON: Comparison is made with the prior examination dated 07/10/2024. FINDINGS: Three views of the left ankle are submitted. Osseous mineralization is normal. Again seen is a vertically oriented mildly displaced fracture of the distal fibula. The appearance is not significantly changed from the prior study. The joint spaces are preserved. There is mild persistent soft tissue swelling at the fracture site. XR/XR ankle LT min 3V IMPRESSION: Vertically oriented fracture of the distal fibula without change. Electronically signed by: Pedro Giron MD 07/19/2024 01:45 PM EST Dictated By: Pedro Giron MD Signed By: <Electronically signed by Pedro Giron MD in OV> 07/19/24 1345 DD/ 1123 TD/TT: 07/17/24 1125 [employer]: [facility] External Provider IMG XR PROCEDURES Edited Result - Final documented in this encounter Visit Diagnoses Not on filedocumented in this encounter Additional Health Concerns Assessment Noted Time PHQ-9 Depression Total Score: 8 06/19/20 24 3:45 PM EST documented as of this encounter Care Teams Baking Assistant Relationship Specialty Start Date End Date CoradoYuniel Kiser MD [address] [place] [id number] PCP - General Internal Medicine 05/11/24 documented as of this encounter
--- OUTSIDE RECORDS SUMMARY | 2024-08-15 07:48 | XMS_ITS | Clinical Summary ---
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 1 kit 4 Active alendronate (Fosamax) 70 MG tablet Take 1 tablet (70 mg) by mouth every 7 (seven) days. Take in the morning with a full glass of water, on an empty stomach, and do not take anything else by mouth or lie down for the next 30 min. 4 tablet 11 4 06/29/20 25 Active Calcium Carbonate-Vit D-Min (Caltrate 600+D Plus Minerals) 600-800 MG-UNIT chewable tablet Chew 1 tablet 2 times daily. 60 tablet 11 4 Active acetaminophen (Tylenol Extra Strength) 500 MG tablet Take 2 tablets (1,000 mg) by mouth every 8 (eight) hours if needed for mild pain. 30 tablet 5 Active naproxen (Naprosyn) 500 MG tablet Take 1 tablet (500 mg) by mouth 2 times daily. 60 tablet 5 08/13/19 25 traMADol (Ultram) 50 MG tabletIndicatio ns:Acute left ankle pain Take 1 tablet (50 mg) by mouth every 6 (six) hours if needed for severe pain for up to 5 days. 15 tablet 5 07/19/19 25 Active Problems Problem Noted Date Diagnosed Date Acute left ankle pain 07/14/2024 Assessment & Plan (07/14/2024 2:00 PM EST): Prescribing Naproxen BID, Tramadol, and Tylenol for Sx. Follow up with Orthopaedic 07/27. Relevant Medication Acetaminophen (Tylenol Extra Strength) 500 MG tablet Naproxen (Naprosyn) 500 MG tablet Elevated blood pressure reading 06/23/2024 Assessment & Plan (08/02/2024 8:39 AM EST): Has remained below 140/90, continue low sodium diet and exercise as tolerated, keep bp log, call back if above target Assessment & Plan (06/23/2024 3:49 PM EST): Will order a bp monitor, keep low sodium diet, bp target <140/90, follow up in 1 month Normal physical examination 06/23/2024 Assessment & Plan (06/23/2024 3:52 PM EST): Unremarkable physical exam, will order routine blood work to evaluate for secondary conditions associated Encounter for medical examination to establish c are 05/11/2024 Assessment & Plan (05/11/2024 2:59 PM EDT): [place] pcp follow up 2 [place] Hospitalizations:- Er visit on the past year: - Pmhx: Osteoporosis? Pshx:- All:- Meds: vitamin d, biotin, vitamin b12 Encounter for screening mamm ogram for malignant neoplasm of breast 05/11/2024 Assessment & Plan (05/11/2024 3:05 PM EDT): Will place order for screening mammogram Screening for cervical cancer 05/11/2024 Assessment & Plan (05/11/2024 3:04 PM EDT): Will refer to a female provider as patient requested Screening for colon cancer 05/11/2024 Assessment & Plan (05/11/2024 3:01 PM EDT): Will place referral for screening, denied having screening before Age-related osteoporosis wit hout current pathological fracture 05/11/2024 Encounters Date Type Department Care Team Description 08/01/2024 3:30 PM EST Telemedicine [facility] [address] [place] [address] Yuniel Chun MD Elevated blood pressure reading (Primary Dx); Dietary counseling; Exercise counseling 08/01/2024 Travel 07/17/2024 Orders Only [facility] External Provider, [facility] 07/14/2024 2:00 PM EST Telemedicine [facility] [address] [place] [address] Aster Smith MD Acute left ankle pain (Primary Dx) 07/14/2024 Travel 07/13/2024 Telephone [facility] [address] [place] [address] Yuniel Chun MD Nurse Triage 07/06/2024 Telephone [facility] [address] [place] [address] Yuniel Chun MD APPT/ RECALL 06/29/2024 Telephone [facility] [address] [place] [address] Yuniel Chun MD 06/29/2024 Orders Only [facility] [address] [place] [address] Yuniel Chun MD 06/29/2024 Orders Only [facility] [address] [place] [address] Yuniel Chun MD 06/19/2024 3:15 PM EST Office Visit [facility] [address] [place] [address] Yuniel Chun MD Overweight (Primary Dx); Dietary counseling; Exercise counseling; Elevated blood pressure reading; Normal physical examination 06/19/2024 Travel 06/05/2024 Patient Outreach [facility] [address] [place] [address] Yuniel Chun MD Pre-visit Planning ([facility] unable to reach [facility]) 05/18/2024 Telephone [facility] [address] [place] [address] Aster Smith MD from Last 3 Months Family History Medical History Relation Name Comments Coronary artery disease Father Hepatitis Father Brain cancer Maternal Grandmother Coronary artery disease Mother Heart failure Mother Hypertension Mother Kidney disease Mother Breast cancer Mother's Sister Relation Name Status Comments Father Maternal Grandmother Mother Mother's Sister Social History Tobacco Use Types Packs/Day Years Used Date Smoking Tobacco: Former Cigarettes 0.5 26 S tarted: 1992 Smokeless Tobacco: Never Tobacco Cessation:Counseling Given: Not Answered Alcohol Use Standard Drinks/Week Comments Yes 0 [...] Orientation Straight 05/11/2024 1: 07 PM EDT Last Filed Vital Signs Vital Sign Reading Time Taken Comments Blood Pressure 132/70 08/01/2024 3:41 PM EST Pulse 83 06/19/2024 3:30 PM EST Temperature 36.7 ??C (98 ??F) 06/19/2024 3:30 PM EST Respiratory Rate 12 06/19/2024 3:30 PM EST Oxygen Saturation 98% 06/19/2024 3:30 PM EST Inhaled Oxygen Concentration - - Weight 68.9 kg (152 lb) 06/19/2024 3:30 PM EST Height 157.5 cm (5' 2 ) 06/19/2024 3:30 PM EST Body Mass Index 27.8 06/19/2024 3:30 PM EST Plan of Treatment Health Maintenance Due Date Last Done Comments CT Colonography 1965 Colonoscopy 1963 Colorectal Cancer Screening 1965 FIT DNA/Cologuard 1963 FIT 1965 FOBT 1965 HIV Screening 1965 Sigmoidoscopy 1965 Hepatitis C Screening 1981 DTaP/Tdap/Td Vaccines (1 - Tdap) 1982 Pap Smear 1984 Cervical Cancer Screening 1993 HPV/Cotest 1993 Pneumococcal Vaccine: 50+ Years (1 of 1 - PCV) 2013 Zoster Vaccines (1 of 2) 2013 COVID-19 Vaccine ( - 2023-2 5 season) 2024 Influenza Vaccine (#1) 2024 SDOH Screening 05/11/2025 05/11/2024 Tobacco Screening 06/19/2025 06/19/2024 Alcohol/Substance Use Screening 08/01/2025 08/01/2024 Depression Screening 08/01/2025 08/01/2024, 08/01/2024 Mammogram 06/26/2026 06/26/2024 RSV Patients and Patients Aged 60 years or older (1 - 1-dose 75+ series) 2038 HIB Vaccines Aged Out No longer eligi ble based on patient's age to complete this topic HPV Vaccines Aged Out No longer eligi ble based on patient's age to complete this topic Hepatitis A Vaccines Aged Out No long er eligible based on patient's age to complete this topic Hepatitis B Vaccines Aged Out No long er eligible based on patient's age to complete this topic IPV Vaccines Aged Out No longer eligi ble based on patient's age to complete this topic Meningococcal Vaccine Aged Out No jasvir david eligible based on patient's age to complete this topic RSV under 20 months Aged Out No longe r eligible based on patient's age to complete this topic Rotavirus Vaccines Aged Out No longer eligible based on patient's age to complete this topic Procedures Procedure Name Priority Date/Time Associated Diagnosis Comments XR ANKLE 3+ VIEWS LEFT Routine 07/17/2024 11:23 AM EST BD DEXA AXIAL Routine 06/27/2024 2:45 PM EST Age-related osteoporosis without current pathological fracture BI MAMMOGRAM SCREENING TOMOSYNTHESIS BILATERAL Routine 06/26/2024 3:51 PM EST Encounter for screening mammogram for malignant neoplasm of breast from Last 3 Months Results * XR Ankle 3+ Views Left (07/17/2024 11:23 AM EST) Anatomical Region Laterality Modality Lower Extremities, Ankle Left Radiogr aphic Imaging 07/17/2024 11:2 3 AM EST Narrative 07/19/2024 1:48 PM EST ? [facility] ? [address] ?[place] [address] ?XRay Report ? Signed ? Patient: Ayah Bautista ?MR#: [id number] ?? 31 ? : 1965 ?Acct:[id number] ? Age/Sex: 59 / F ?ADM Date: 07/17/24 ? Loc: HO.HOSX ? Attending Dr: Belle Steve PA-C ? Ordering Physician: Belle Steve PA-C ?? Date of Service: 07/17/24 ?? Procedure(s): XR ankle LT min 3V ?? Accession Number(s): [id number] ? cc: Yuniel Chun MD; Belle Steve [...] DD/ 1123 ? TD/TT: 07/17/24 1125 ? Knitting Inspector: ? Procedure Note Starla, Image - 07/19/2024 [facility] [address] [place] [address] [address] [place] [address] XRay Report Signed Patient: Ayah BautistaMR#: [id number] [birth year] : 1965Acct:[id number] Age/Sex: 59 / FADM Date: 07/17/24 Loc: CONNIE Attending Dr: Belle Steve PA-C Ordering Physician: Belle Steve PA-C Date of Service: 07/17/24 Procedure(s): XR ankle LT min 3V Accession Number(s): [id number] cc: Yuniel Chun MD; Belle Steve PA-C [...] Pedro Giron MD 07/19/2024 01:45 PM EST RP Dictated By: Pedro Giron MD Signed By: <Electronically signed by Pedro Giron MD in OV> 07/19/24 1345 DD/ 1123 TD/TT: 07/17/24 1125 Knitting Inspector: [facility] External Provider IMG XR PROCEDURES Edited Result - Final * BD DEXA Axial (06/27/2024 2:45 PM EST) Anatomical Region Laterality Modality Body Radiographic Mine ging 06/27/2024 2:45 PM EST Narrative 06/28/2024 10:15 AM EST ? [facility] ? [address] ?[place] [address] ? Mammography Report ? Signed ? Patient: Ayah Bautista ?MR#: [id number] ?? 31 ? : 1965 ?Acct:[id number] ? Age/Sex: 59 / F ?ADM Date: 12/17/24 ? Loc: HO.MAMMO ? Attending Dr: Yuniel Coradoleda Jalloh MD ? Ordering Physician: Yuniel Chun MD ?Res ?? ults: ? Date of Service: 12/17/24 ?Follow Up: ? Procedure(s): XR DEXA axial skeleton ?? Accession Number(s): [id number] ? cc: Yuniel Chun MD ? EXAMINATION: ?? BONE DENSITOMETRY ? CLINICAL INDICATION: ?? Osteoporosis. ? COMPARISON: ?? This is the patient's baseline examination. ? TECHNIQUE: Using a [employer] DXA System (software version: ?? 13.1) manufactured by [employer], dual-energy x-ray absorptiometry ?? was performed of the lumbar spine and left hip. The images are of good ?? technical quality. Summary results are attached. ? FINDINGS: ?? LEFT FEMUR, NECK: ?? BMD 0.801 g/cm2, Z-score -1.4, T-score -1.7, osteopenia. ? LEFT FEMUR, TOTAL: ?? BMD 0.890 g/cm2, Z-score -1.0, T-score -0.9, normal. ? AP SPINE L1-L4: ?? BMD 0.863 g/cm2, Z-score -2.2, T-score -2.6, osteoporosis. ? IDENTIFIED RISK FACTORS: ?? Menopause, osteoporosis, tobacco user (current smoker). ? HISTORY OF FRACTURE: ?? None listed. ? MEDICATIONS: ?? Vitamin D. ? MM/XR DEXA axial skeleton ?? IMPRESSION: ?? 1. DIAGNOSIS: Osteoporosis based on the lowest T-score value of -2.6 in ?? the lumbar spine applying World Health Organization criteria. ? 2. 10-YEAR FRACTURE RISK PREDICTION, FRAX: According to the guidelines, ?? FRAX calculation should only be performed on patients in the osteopenia ?? bone density category. Therefore, FRAX was not performed on this ?? patient. ?? 3. Treatment Recommendations: NOF guidelines recommend consideration ?? for treatment in postmenopausal women and men age 50 and older ?? presenting with the following: ?? -A hip or vertebral (clinical or morphometric) fracture. ?? -T-score less than or equal to -2.5 at the femoral neck or spine after ?? appropriate evaluation to exclude secondary causes. ?? -Low bone mass at the hip or spine and a 10-year fracture probability ?? by FRAX of greater than or equal to 3% for hip fracture or greater than ?? or equal to 20% for major osteoporotic fracture based on the [place] adapted ?? WHO algorithm. ?? 4. Other Recommendations: All treatment decisions require clinical ?? judgment and consideration of individual patient factors, including ?? patient preferences, comorbidities, previous drug use, risk factors not ?? captured in the FRAX model (e.g. frailty, falls, vitamin D deficiency, ?? increased bone turnover, interval significant decline in bone density) ?? and possible under or overestimation of fracture risk by FRAX. ?? Additional medical evaluation for secondary cause of low bone mineral ?? density may be appropriate. ? FUTURE SCAN RECOMMENDATION: ?? People with diagnosed cases of osteoporosis or at high risk for ?? fracture should have regular bone mineral density tests. For patients ?? eligible for Medicare, routine testing is allowed once every 2 years. ?? The testing frequency can be increased to one year for patients who ?? have rapidly progressing disease, those who are receiving or ?? discontinuing medical therapy to restore bone mass, or have additional ?? risk factors. ? Electronically signed by: ??Farhat Sosa MD ??06/28/2024 10:12 AM EST RP ? Dictated By: ?Farhat Sosa MD ? Signed By: ?<Electronically signed by Farhat Sosa MD in OV> ?06/28/24 1012 ? DD/ 1445 ? TD/TT: 06/27/24 1500 ? Knitting Inspector: SK ? Procedure Note Donjosephter, Image - 06/28/2024 [facility] [address] [place] [address] Mammography Report Signed Patient: Ayah BautistaMR#: [id number] [birth year] : 1965Acct:[id number] Age/Sex: 59 / FADM Date: 06/27/24 Loc: HO.MAMMO Attending Dr: Yuniel Jalloh MD Ordering Physician: Yuniel Chun ults: Date of Service: 06/27/24Follow Up: Procedure(s): XR DEXA axial skeleton Accession Number(s): [id number] cc: Yuniel Chun MD EXAMINATION: BONE DENSITOMETRY CLINICAL INDICATION: Osteoporosis. COMPARISON: This is the patient's baseline examination. TECHNIQUE: Using a [employer] DXA System (software version: 13.1) manufactured by [employer], dual-energy x-ray absorptiometry was performed of the lumbar spine and left hip. The images are of good technical quality. Summary results are attached. FINDINGS: LEFT FEMUR, NECK: BMD 0.801 g/cm2, Z-score -1.4, T-score -1.7, osteopenia. LEFT FEMUR, TOTAL: BMD 0.890 g/cm2, Z-score -1.0, T-score -0.9, normal. AP SPINE L1-L4: BMD 0.863 g/cm2, Z-score -2.2, T-score -2.6, osteoporosis. IDENTIFIED RISK FACTORS: Menopause, osteoporosis, tobacco user (current smoker). HISTORY OF FRACTURE: None listed. MEDICATIONS: Vitamin D. MM/XR DEXA axial skeleton IMPRESSION: 1. DIAGNOSIS: Osteoporosis based on the lowest T-score value of -2.6 in the lumbar spine applying World Health Organization criteria. 2. 10-YEAR FRACTURE RISK PREDICTION, FRAX: According to the guidelines, FRAX calculation should only be performed on patients in the osteopenia bone density category. Therefore, FRAX was not performed on this patient. 3. Treatment Recommendations: NOF guidelines recommend consideration for treatment in postmenopausal women and men age 50 and older presenting with the following: -A hip or vertebral (clinical or morphometric) fracture. -T-score less than or equal to -2.5 at the femoral neck or spine after appropriate evaluation to exclude secondary causes. -Low bone mass at the hip or spine and a 10-year fracture probability by FRAX of greater than or equal to 3% for hip fracture or greater than or equal to 20% for major osteoporotic fracture based on the [place] adapted WHO algorithm. 4. Other Recommendations: All treatment decisions require clinical judgment and consideration of individual patient factors, including patient preferences, comorbidities, previous drug use, risk factors not captured in the FRAX model (e.g. frailty, falls, vitamin D deficiency, increased bone turnover, interval significant decline in bone density) and possible under or overestimation of fracture risk by FRAX. Additional medical evaluation for secondary cause of low bone mineral density may be appropriate. FUTURE SCAN RECOMMENDATION: People with diagnosed cases of osteoporosis or at high risk for fracture should have regular bone mineral density tests. For patients eligible for Medicare, routine testing is allowed once every 2 years. The testing frequency can be increased to one year for patients who have rapidly progressing disease, those who are receiving or discontinuing medical therapy to restore bone mass, or have additional risk factors. Electronically signed by: Farhat Sosa MD 06/28/2024 10:12 AM EST RP Dictated By: Farhat Sosa MD Signed By: <Electronically signed by Farhat Sosa MD in OV> 06/28/24 1012 DD/ 1445 TD/TT: 06/27/24 1500 Knitting Inspector: SK us Yuniel Jalloh MD IMG DXA PROCEDURES Edited Result - Final * BI Mammogram Screening Tomosynthesis Bilateral (06/26/2024 3:51 PM EST) Anatomical Region Laterality Modality Breast Bilateral Mammography 06/26/2024 3:51 PM EST Narrative 07/18/2024 10:04 AM EST ? [facility] ? [address] ?[place] [address] ? Mammography Report ? Signed ? Patient: Ayah Bautista ?MR#: [id number] ?? 31 ? : 1965 ?Acct:[id number] ? Age/Sex: 59 / F ?ADM Date: 12/16/24 ? Loc: HO.MAMMO ? Attending Dr: Yuniel Jalloh MD ? Ordering Physician: Yuniel Chun MD ? Results: 0Incomplete: Needs Additional Imaging ?? Evaluation ? Date of Service: 06/26/24 ?Follow Up: Additional Imagi ?? ng ? Procedure(s): MM tomosynthesis screening BI ?? Accession Number(s): [id number] ? cc: Yuniel Chun MD ? EXAMINATION: ?? MM SCREENING DIGITAL BREAST TOMOSYNTHESIS, BILATERAL ? CLINICAL INFORMATION: ? Screening. Asymptomatic. ? COMPARISON: ?? Mammography: Comparison is made with available priors ? TECHNIQUE: ?? Digital breast mammography with tomosynthesis is performed in both the ?? craniocaudal and mediolateral oblique views along with computer-aided ?? detection (CAD). ? FINDINGS: ?? The breasts are heterogeneously dense, which may obscure small masses ?? (ACR BI-RADS breast composition Category c). ?? Left: ?? Asymmetry lateral breast posterior depth on CC view. ?? No suspicious calcifications or other abnormal findings. ? Right: ?? Focal asymmetry upper outer breast posterior depth could represent an ?? intramammary lymph node. ?? No suspicious calcifications or other abnormal findings. ? MM/MM tomosynthesis screening BI ?? IMPRESSION: ?? Left: Asymmetry lateral breast. Recommend additional imaging and ?? ultrasound at this time. ?? Right: Focal asymmetry. Recommend ultrasound at this time. ? ASSESSMENT: ? BI-RADS BI-RADS 0 - Incomplete: Needs additional Imaging. ? RECOMMENDATION: ?? 1. Additional views of the bilateral breasts. ?? 2. Targeted ultrasound if warranted after review of the additional ?? views. ?? 3. Radiology department staff will contact the patient for additional ?? imaging. ? Additional Imaging required ? This examination should not preclude the clinical evaluation of a ?? suspicious palpable abnormality. ? This patient's information was entered into a reminder system with a ?? target due date for their next mammogram. ? Electronically signed by: ??Cinthia Sutton DO ??07/18/2024 10:01 AM EST ? Dictated By: ?Cinthia Sutton DO ? Signed By: ?<Electronically signed by Cinthia Sutton, DO in OV> ? 07/18/24 1001 ? DD/ 1551 ? TD/TT: 06/26/24 1551 ? Knitting Inspector: ? Procedure Note Donrejiinterpreter, Image - [facility] [address] [place] [address] Mammography Report Signed Patient: Ayah BautistaMR#: [id number] [birth year] : 1965Acct:[id number] Age/Sex: 59 / FADM Date: 06/26/24 Loc: HO.MAMMO Attending Dr: Yuniel Jalloh MD Ordering Physician: Yuinel Chun MD Results: 0Incomplete: Needs Additional Imaging Evaluation Date of Service: 06/26/24Follow Up: Additional Imagi ng Procedure(s): MM tomosynthesis screening BI Accession Number(s): [id number] cc: Yuniel Chun MD EXAMINATION: MM SCREENING DIGITAL BREAST TOMOSYNTHESIS, BILATERAL CLINICAL INFORMATION: Screening. Asymptomatic. COMPARISON: Mammography: Comparison is made with available priors TECHNIQUE: Digital breast mammography with tomosynthesis is performed in both the craniocaudal and mediolateral oblique views along with computer-aided detection (CAD). FINDINGS: The breasts are heterogeneously dense, which may obscure small masses (ACR BI-RADS breast composition Category c). Left: Asymmetry lateral breast posterior depth on CC view. No suspicious calcifications or other abnormal findings. Right: Focal asymmetry upper outer breast posterior depth could represent an intramammary lymph node. No suspicious calcifications or other abnormal findings. MM/MM tomosynthesis screening BI IMPRESSION: Left: Asymmetry lateral breast. Recommend additional imaging and ultrasound at this time. Right: Focal asymmetry. Recommend ultrasound at this time. ASSESSMENT: BI-RADS BI-RADS 0 - Incomplete: Needs additional Imaging. RECOMMENDATION: 1. Additional views of the bilateral breasts. 2. Targeted ultrasound if warranted after review of the additional views. 3. Radiology department staff will contact the patient for additional imaging. Additional Imaging required This examination should not preclude the clinical evaluation of a suspicious palpable abnormality. This patient's information was entered into a reminder system with a target due date for their next mammogram. Electronically signed by: Cinthia Sutton DO 07/18/2024 10:01 AM EST Dictated By: Cinthia Sutton DO Signed By: <Electronically signed by Cinthia Sutton DO in OV> 07/18/24 1001 DD/ 1551 TD/TT: 06/26/24 1551 Knitting Inspector: Yuniel Jalloh MD IMG BI PROCEDURES Edited Result - Final from Last [address] [place], [place] [address] Care Teams [employer] As[employer] Relationship Specialty Start Date End Date Yuniel Chun MD [address] [place] [id number] PCP - General Internal Medicine 05/11/24
== END 2024-08-15 07:46 | disposition home or self-care (01) ==
LOC: HO.HOSX 07:45
PROVIDERS: Visit Provider Physician Assistant
DX: M25.571 Pain in right ankle and joints of right foot (principal); S82.892A Other fracture of left lower leg, initial encounter for closed fracture
CPT/HCPCS: 73610; 99212

== ENCOUNTER 2024-08-15 10:33 | Outpatient (AMB) | payer MEDICAID, SELFPAY ==
--- NOTE | 2024-08-15 10:38 | A.OFFVIS_ITS ---
Vital Signs 08/15/24 10:44 Height 5 ft 2 in Weight 140 lb BMI 25.6 Intake Visit Reasons: OV - left ankle fx, DOI 07/10/24 Intake Note: Ayah is a 59 year old female who presents today with tall walking boot and with her son for a follow up of her left ankle fx, DOI 07/11/24. Patient reports she is doing a lot better. She mentions that PT is helping her and she has one session left. Allergies No Known Allergies Allergy (Verified 08/15/24 10:44) HPI HPI OV - left ankle fx, DOI 07/10/24: Details: Ms. Bautista is a 59-year-old female who presents to the office today for routine follow-up status post left ankle fracture that occurred on 07/10/2024. I last saw the patient in the office today on 07/17/2024 where the patient was placed into a tall walking boot and instructed to work with physical therapy. She reports that she has been weaned to 1 crutch and is still in the tall walking boot. Overall the patient states that her pain has improved significantly since her last visit. However, she reports that she still has swelling and pain along the lateral aspect of the foot. [facility] Social History Alcohol intake: current Alcohol intake frequency: holidays/special occasions only Patient Tobacco Use Status: Never used Tobacco Current occupational status: employed Current occupation: production control procurement assistant Review of Systems Const All systems reviewed & are unremarkable except as noted in HPI and below Physical Exam Vital Signs: BMI result Body Mass Index 25.6 Const General: cooperative, healthy appearing and no acute distress Resp Effort & Inspection: normal respiratory effort and able to speak in complete sentences Cardio Rate: regular rate Peripheral pulses: Peripheral pulses 2+ throughout Skin Lesions: no lesions Rashes: no rashes Extrem Other: Left ankle moderate circumferential edema. Tenderness to palpation over the lateral malleolus at the fracture site as well as the base of the 5th metatarsal. Able to dorsiflex and plantar flex, pronate and supinate with mild pain. NVI. Assessment & Plan Assessment & Plan (1) Closed left ankle fracture: Code(s): S82.892A - Other fracture of left lower leg, initial encounter for closed fracture Category: Medical Plan Ms. Bautista is a 59-year-old female who presents to the office today for routine follow-up status post left ankle fracture that occurred on 07/10/2024. I last saw the patient in the office today on 07/17/2024 where the patient was placed into a tall walking boot and instructed to work with physical therapy. She reports that she has been weaned to 1 crutch and is still in the tall walking boot. Overall the patient states that her pain has improved significantly since her last visit. However, she reports that she still has swelling and pain along the lateral aspect of the foot. Patient would like to return back to work, however, she needs to wear steel-toed shoes for her position and is sitting/standing throughout her shift. At this time she has not weaned from the boot and therefore I have recommended that she remain out of work for the next 2 weeks. During this time, she will work with physical therapy to wean her out of the boot and off the crutch and into a lace- up ankle brace which was provided to her in the office today, off the shelf. She will continue to weightbear as tolerated. I would like to see her back in 4 weeks with repeat x-rays, sooner if needed. X-rays of the left ankle which were obtained while in the office today and were reviewed by me, Belle Steve PA-C, revealed routine healing left distal fibular fracture. Orders: Orders XR ankle LT min 3V Today M25.579 - Pain in unspecified ankle and joints of unspecified foot Coding Level of Care Code Est Pt Level 3 (85782) Diagnoses Closed left ankle fracture S82.892A
[2024-08-15 10:44] VITALS: BMI 25.6
--- OUTSIDE RECORDS SUMMARY | 2024-08-15 11:25 | XMS_ITS | Encounter Summary ---
Author Organization [employer] Address [address] [facility] 7t [place] [address] Care Team Providers Care Jewelry Repairer Name Role Phone Yuniel Chun MD Primary Care Prov ider Encounter Details Date Type Department Care Team (Late st Contact Info) Description 08/01/2024 3:30 PM EST Telemedicine [facility] [address] [place], [place] [phone] Yuniel Chun MD [address] [place] [address] Elevated blood pressure reading (Primary Dx); Dietary [...] documented as of this encounter Care Teams Jewelry Repairer Relationship Specialty Start Date End Date Yuniel Chun MD [address] [place] [address] PCP - General Internal Medicine 05/11/24 documented as of this encounter
--- OUTSIDE RECORDS SUMMARY | 2024-08-15 11:25 | XMS_ITS | Clinical Summary ---
Author Organization [employer] Address [address] [facility] 7[address] [place] [address] Care Team Providers Care Dictionary Editor Name Role Phone Yuniel Chun MD Primary [...] [place] [facility] Er visit on the past year: [...] Team Description 08/01/2024 3:30 PM EST Telemedicine [facility] [address] [place] [address] Yuniel Chun MD Elevated blood pressure reading (Primary Dx); Dietary counseling; Exercise counseling 08/01/2024 Travel 07/17/2024 Orders Only [facility] External Provider, [facility] 07/14/2024 2:00 PM EST Telemedicine [facility] [address] [place] [address] Aster Smith MD Acute left ankle pain (Primary Dx) 07/14/2024 Travel 07/13/2024 Telephone [facility] [address] [facility] [place] [address] Yuniel Chun MD Nurse Triage 07/06/2024 Telephone [facility] [address] [place] [address] Yuniel Chun MD APPT/ RECALL 06/29/2024 Telephone [facility] [address] [place] [address] Yuniel Chun MD 06/29/2024 Orders Only [facility] [address] [place] [address] Yuniel Chun MD 06/29/2024 Orders Only [facility] [address] [place] [address] Yuniel Chun MD 06/19/2024 3:15 PM EST Office Visit [facility] [address] [place] [address] Yuniel Chun MD Overweight (Primary Dx); Dietary counseling; Exercise counseling; Elevated blood pressure reading; Normal physical examination 06/19/2024 Travel 06/05/2024 Patient Outreach [facility] [address] [place] [address] Yuniel Chun MD Pre-visit Planning ([facility] unable to reach [facility]) 05/18/2024 Telephone [facility] [address] [place] [address] Aster Smith MD from Last 3 Months [...] [address] ?[place] [address] ?XRay Report ? Signed ? Patient: Ayah Bautista ?MR#: [id number] ?? 31 ? : 1965 ?Acct:[id number] ? Age/Sex: 59 / F ?ADM Date: 07/17/24 ? Loc: HO.HOSX ? Attending Dr: Belle Steve PA-C ? Ordering Physician: Belle Steve PA-C ?? Date of Service: 07/17/24 ?? Procedure(s): XR ankle LT min 3V ?? Accession Number(s): [id number] ? cc: Yuniel Chun MD; Belle Steve [...] DD/ 1123 ? TD/TT: 07/17/24 1125 ? Apprentice Instrument Technician: ? Procedure Note Starla, Image - 07/19/2024 [facility] [address] [place] [address] [address] [place] [address] XRay Report Signed Patient: Ayah BautistaMR#: [id number] [birth year] : 1965Acct:[id number] Age/Sex: 59 / FADM Date: 07/17/24 Loc: CONNIE Attending Dr: Belle Steve PA-C Ordering Physician: Belle Steve PA-C Date of Service: 07/17/24 Procedure(s): XR ankle LT min 3V Accession Number(s): [id number] cc: Yuniel Chun MD; Belle Steve PA-C [...] 07/19/24 1345 DD/ 1123 TD/TT: 07/17/24 1125 Apprentice Instrument Technician: [facility] External Provider IMG XR PROCEDURES Edited Result - Final * BD DEXA Axial (06/27/2024 2:45 PM EST) Anatomical Region Laterality Modality Body Radiographic Mine ging 06/27/2024 2:45 PM EST Narrative 06/28/2024 10:15 AM EST ? [facility] [place] ? [address] ?[place] [address] ? Mammography Report ? Signed ? Patient: Ayah Bautista ?MR#: [id number] ?? [birth year] ? : 1965 ?Acct:[id number] ? Age/Sex: 59 / F ?ADM Date: 12/17/24 ? Loc: HO.MAMMO ? Attending Dr: Yuniel Coradoleda Jalloh MD ? Ordering Physician: Yuniel Chun MD ?Res ?? ults: ? Date of Service: 12/17/24 ?Follow Up: ? Procedure(s): XR DEXA axial skeleton ?? Accession Number(s): [id number] ? cc: Yuniel Chun MD ? EXAMINATION: ?? BONE DENSITOMETRY ? CLINICAL INDICATION: ?? Osteoporosis. ? COMPARISON: ?? This is the patient's baseline examination. ? TECHNIQUE: Using a Sampa DXA System (software version: ?? 13.1) manufactured by [employer], dual-energy x-ray absorptiometry ?? was performed of [...] DD/ 1445 ? TD/TT: 06/27/24 1500 ? Apprentice Instrument Technician: SK ? Procedure Note Donjosephter, Image - 06/28/2024 [facility] [address] [place] [address] Mammography Report Signed Patient: Ayah BautistaMR#: [id number] [birth year] : 1965Acct:[id number] Age/Sex: 59 / FADM Date: 06/27/24 Loc: HO.MAMMO Attending Dr: Yuniel Jalloh MD Ordering Physician: Yuniel Chun ults: Date of Service: 06/27/24Follow Up: Procedure(s): XR DEXA axial skeleton Accession Number(s): [id number] cc: Yuniel Chun MD EXAMINATION: BONE DENSITOMETRY CLINICAL INDICATION: Osteoporosis. COMPARISON: This is the patient's baseline examination. TECHNIQUE: Using a Sampa DXA System (software version: 13.1) manufactured by [employer], dual-energy x-ray absorptiometry was performed of the [...] 06/28/24 1012 DD/ 1445 TD/TT: 06/27/24 1500 Apprentice Instrument Technician: SK us Yuniel Jalloh MD IMG DXA PROCEDURES Edited Result - Final * BI Mammogram Screening Tomosynthesis Bilateral (06/26/2024 3:51 PM EST) Anatomical Region Laterality Modality Breast Bilateral Mammography 06/26/2024 3:51 PM EST Narrative 07/18/2024 10:04 AM EST ? [facility] [place] ? [address] ?[place] [address] ? Mammography Report ? Signed ? Patient: Ayah Bautista ?MR#: [id number] ?? 31 ? : 1965 ?Acct:[id number] ? Age/Sex: 59 / F ?ADM Date: 12/16/24 ? Loc: HO.MAMMO ? Attending Dr: Yuniel Jalloh MD ? Ordering Physician: Yuniel Chun MD ? Results: 0Incomplete: Needs Additional Imaging ?? Evaluation ? Date of Service: 06/26/24 ?Follow Up: Additional Imagi ?? ng ? Procedure(s): MM tomosynthesis screening BI ?? Accession Number(s): [id number] ? cc: Yuniel Chun MD ? EXAMINATION: [...] DD/ 1551 ? TD/TT: 06/26/24 1551 ? Apprentice Instrument Technician: ? Procedure Note Donrejiinterpreter, Image - 07/18/20[facility] [address] [place] [address] Mammography Report Signed Patient: Ayah BautistaMR#: [id number] [birth year] : 1965Acct:[id number] Age/Sex: 59 / FADM Date: 06/26/24 Loc: HO.MAMMO Attending Dr: Yuniel Jalloh MD Ordering Physician: Yuniel Chun MD Results: 0Incomplete: Needs Additional Imaging Evaluation Date of Service: 06/26/24Follow Up: Additional Imagi ng Procedure(s): MM tomosynthesis screening BI Accession Number(s): [id number] cc: Yuniel Chun MD EXAMINATION: MM SCREENING [...] 07/18/24 1001 DD/ 1551 TD/TT: 06/26/24 1551 Apprentice Instrument Technician: Yuniel Jalloh MD IMG BI PROCEDURES Edited Result - Final from Last [address] [place], [place] [address] C[employer] Care Teams Dictionary Editor Relationship Specialty Start Date End Date Yuniel Chun MD [address] [place] [phone] PCP - General Internal Medicine 05/11/24
--- OUTSIDE RECORDS SUMMARY | 2024-08-15 11:25 | XMS_ITS | Encounter Summary ---
Author Organization [employer] Address [address] [facility] 7t [place] [address] Care Team Providers Care Lean Six Sigma Black Belt Name Role Phone Yuniel Chun MD Primary Care Prov ider Reason for Visit * Reason Onset Date Comments Nurse Triage 07/13/2024 Encounter Details Date Type Department Care Team (Late st Contact Info) Description 07/13/2024 Telephone [facility] [address] [place] [address] Yuniel Chun MD [address] [place], [place] [phone] Nurse Triage Social History Tobacco Use Types [...] ED visit on : Date: 07/10/24 Hospital: [facility] ED Seen for: Fractured left ankle Called pt. She states she chip fractured her left ankle on 07/11/24 and went to [facility] ED. Pt has beentaking Tylenol 650mg every 4 hours and also Motrin 800mg every 8 hours. Pt states it is starting toupset stomach and she is requesting an alternative pain medication for Ankle. Please scan [facility] ED note in pt. Chart for 2pm [...] ED visit on : Date: 07/10/24 Hospital: [facility] ED Seen for: Fractured left ankle * Telephone Encounter - Ham Amari - 07/13/2024 8:22 AM EST Patient calling to report ED visit on : Date: 07/10/24 Hospital: [facility] ED Seen for: Fractured left ankle Pt states was referred to [facility] Orthopedic surgeons on [address] [place] . Visit is scheduled 07/27/24 . Pt [...] documented as of this encounter Care Teams Lean Six Sigma Black Belt Relationship Specialty Start Date End Date Yuniel Chun MD [address] [place] [phone] PCP - General Internal Medicine 05/11/24 documented as of this encounter
--- OUTSIDE RECORDS SUMMARY | 2024-08-15 11:25 | XMS_ITS | Encounter Summary ---
Author Organization [employer] Address [address] [facility] [address] [place] [address] Care Team Providers Care Crimper Assembler Name Role Phone Yuniel hCun MD Primary Care Prov ider Encounter Details [...] documented as of this encounter Care Teams Crimper Assembler Relationship Specialty Start Date End Date Yuniel Chun MD [address] [place] [phone] PCP - General Internal Medicine 05/11/24 documented as of this encounter
--- OUTSIDE RECORDS SUMMARY | 2024-08-15 11:26 | XMS_ITS | Encounter Summary ---
Author Organization [employer] Address [address] [facility] [address]t [place] [address] Care Team Providers Care Senior Project Controls Specialist Name Role Phone Yuniel Chun MD Primary Care Prov ider Encounter Details Date Type Department Care Team (Late st Contact Info) Description 07/17/2024 Orders Only [facility] External Provider, [facility] Social History Tobacco Use Types Packs/Day [...] Surgeons ? [address] ?[place], [place] [address] ?XRay Report ? Signed ? Patient: MicheleAyah ?MR#: [id number] ?? [birth year] ? : 1965 ?Acct:[id number] ? Age/Sex: 59 / F ?ADM Date: 07/17/24 ? Loc: HO.HOSX ? Attending Dr: Belle Steve PA-C ? Ordering Physician: Belle Steve PA-C ?? Date of Service: 07/17/24 ?? Procedure(s): XR ankle LT min 3V ?? Accession Number(s): [id number] ? cc: Yuniel Chun MD; Belle Steve [...] DD/ 1123 ? TD/TT: 07/17/24 1125 ? News Specialist: ? Procedure Note Brent Cha - 07/19/2024 [facility] [address] [place] [address] [address] [place] [address] XRay Report Signed Patient: Ayah BautistaMR#: [id number] [birth year] : 1965Acct:[id number] Age/Sex: 59 / FADM Date: 07/17/24 Loc: HO.MICHIX Attending Dr: Belle Steve PA-C Ordering Physician: Belle Steve PA-C Date of Service: 07/17/24 Procedure(s): XR ankle LT min 3V Accession Number(s): [id number] cc: Yuniel Chun MD; Belle Steve PA-C [...] 07/19/24 1345 DD/ 1123 TD/TT: 07/17/24 1125 News Specialist: [facility] External Provider IMG XR PROCEDURES Edited Result - Final documented in this encounter Visit Diagnoses Not on filedocumented in this encounter Additional Health Concerns Assessment Noted Time PHQ-9 Depression Total Score: 8 06/19/20 24 3:45 PM EST documented as of this encounter Care Teams Senior Project Controls Specialist Relationship Specialty Start Date End Date CoradoYuniel Kiser MD [address] [place] [phone] PCP - General Internal Medicine 05/11/24 documented as of this encounter
--- OUTSIDE RECORDS SUMMARY | 2024-08-15 11:26 | XMS_ITS | Continuity of Care Document ---
Author Organization [facility] Address [address] [place] [address] Phone Care Team Providers Care Gas Usage Meter Clerk Name Role Phone No Information Unavailable Unavailable [...] Location Reason(s) For Visit Diagnoses Date Provider [address] tel:[phone] Location No Information No Information [place] [address], tel:[phone] [facility] No Information Raffucci Theodore. [address] [place] [address], [facility], . tel:[phone] [place] [address], tel:[phone] [facility] No Information Raffucci Theodore. [address] [place], [facility], . tel:[phone], [facility], [place] tel:[phone] Dental Prakash No Information Raffucci Theodore. [address] [place], [facility], [place]. tel:[phone] [place] [address], [address] [place] [address], [facility], tel:[phone] Dental Prakash No Information Raffucci Theodore. [address] [place], [facility], [place]. tel:[phone] [place] [address], [address] [place] [address], [facility], tel:[phone] Dental Prakash No Information Raffucci Theodore. [address] [place], [facility], . tel:[phone] [place] [address], [address] [place] [address], [facility], tel:[phone] [facility] left flank pain (chief complaint)W orried about BP (chief complaint) MyalgiaScreening for colon cancerScreening mammogram for breast cancerElevated blood pressure readingEncntr for general adult medical exam w/o abnormal findings Florin Hampton. [address] [place], [id number], . tel:[phone] [place] [address], [facility], [place] tel:[phone] [facility] Encounter for dental exam and cleaning w/o abnormal findings Raffucci Theodore. [address] [place], [facility], [place]. tel:[phone] [place] [address], [address] [place] [address], [facility], [place] tel:[phone] [facility] Encounter for dental exam and cleaning w/o abnormal findings Raffucci Theodore. [address] [place], [facility], [place]. tel:[phone] [place] [address] [place] [address], [facility], tel:[phone] [facility] [place] Encounter for dental exam and cleaning w/o abnormal findings Jing Jaimes. [address] [place], [facility], . tel:[phone] [place] [address], [address] [place] [address], [facility], tel:[phone] [facility] Encounter for dental exam and cleaning w/o abnormal findings Jing Jaimes. [address] [place], [facility], . tel:[phone] [place] [address], [address] [place] [address], [facility], tel:[phone] [facility] Encounter for dental exam and cleaning w/o abnormal findings Jing Jaimes. [address] [place], [facility], [place]. tel:[phone] [place] [address], [address] [place] [address], [facility], tel:[phone] [facility] Encounter for dental exam and cleaning w/o abnormal findings Jing Jaimes. [address] [place], [facility], . tel:[phone] [address] [place] [address], [facility], tel:[phone] [facility] Encounter for dental exam and cleaning w/o abnormal findings Kvng Hampton. [address] [place], [place], [id number], [place]. tel:[phone] [place] [address], [facility], tel:[phone] [facility] [place] Encounter for dental exam and cleaning w/o abnormal findings Jing Jaimes. [address] [place], [facility], . tel:[phone] [address] [place] [address], [place], [address], tel:[phone] [facility] Encounter for dental exam and cleaning w/o abnormal findings Jing Jaimes. [address] [place], [address], [place]. tel:[phone] [facility], [address] [place] [address], [address], [place] tel:[phone] [facility] Encounter for dental exam and cleaning w/o abnormal findings Jing Jaimes. [facility] [place], [facility], [place]. tel:[phone] [facility], [address] [place] [address], [facility], [place] tel:[phone] [facility] Encounter for dental exam and cleaning w/o abnormal findings Jing Jaimes. [address] [place], [facility], [place]. tel:[phone] [place] [address], [address] [place] [address], [facility], [place] tel:[phone] [facility] Encounter for dental exam and cleaning w/o abnormal findings Jing Jaimes. [address] [place], [facility], [place]. tel:[phone] [facility], [address] [place] [address], [facility], [place] tel:[phone] [facility] Encounter for dental exam and cleaning w/o abnormal findings Jing Jaimes. [address] [place], [facility], [place]. tel:[phone] [facility], [address] [place] [address], [address], [place] tel:[phone] [facility] Encounter for dental exam and cleaning w/o abnormal findings Jing Jaimes. [address] [place], [facility], [place]. tel:[phone] [facility], [address] [place] [address], [facility], tel:[phone] [facility] [place] Encounter for dental exam and cleaning w/o abnormal findings Bala Gomes. [address] [place], [facility], . [facility], [address] [place] [address], [facility], tel:[phone] [facility] [place] Encounter for dental exam and cleaning w/o abnormal findings Bala Gomes. [address] [place], [facility], . [facility], [address] [place] [address], [facility], tel:[phone] [facility] [place] Encounter for dental exam and cleaning w/o abnormal findings Bala Gomes. [address] [place], [facility], . [address], [facility], tel:[phone] [facility] [place] Encounter for dental exam and cleaning w/o abnormal findings Bala Gomes. [address] [place], [facility], . [address], [facility], tel:[phone] [facility] Adult test result f/u (chief complaint) Age-related osteoporosis without current pathological fractureVitamin D deficiencyBody mass index (BMI) 22.0-22.9, adult Iliana Pena. [address], [place], [place], [facility], . tel:[phone], [facility], tel:[phone] [facility] Adult joint pain (chief complaint) Pain, joint, multiple sitesScreening mammogram, encounter forHealthcare maintenanceBody mass index (BMI) 21.0-21.9, adult Iliana Pena. [address], [place], [place], [facility], . tel:[phone] [facility], [address] [place] [address], [facility], tel:[phone] [facility] Encounter for dental exam and cleaning w/o abnormal findings Bala Gomes. [address] [place], [address], [place]. [facility], [address] [place] [address], [address], tel:[phone] [facility] Encounter for dental exam and cleaning w/o abnormal findings Bala Gomes. [address] [place], [address], [place]. [facility], [address] [place] [address], [facility], tel:[phone] [facility] [place] Encounter for dental exam and cleaning w/o abnormal findings Bala Gomes. [address] [place], [address], [place]. [facility], [address] [place] [address], [facility], tel:[phone] [facility] [place] Encounter for dental exam and cleaning w/o abnormal findings Bala Gomes. [address] [place], [facility], [place]. [facility], [address] [place] [address], [facility], tel:[phone] [facility] Encounter for dental exam and cleaning w/o abnormal findings Bala Gomes. [address] [place], [address], [place]. [facility], [address] [place] [address], [facility], tel:[phone] [facility] Encounter for dental exam and cleaning w/o abnormal findings Bala Gomes. [address] [place], [address], [place]. [address], [facility], tel:[phone] [facility] Encounter for dental exam and cleaning w/o abnormal findings Bala Gomes. [address] [place], [facility], [place]. [facility], [address] [place] [address], [address] [place] [address] tel:[phone] [facility] [place] Encounter for dental exam and cleaning w/o abnormal findings Rafat Nguyen. [address] [place] [address], [facility], . tel:[phone] [place] [address], [address] [place] [address], [facility], tel:[phone] [facility] cold symptoms (chief complaint) Acute non-recurrent maxillary sinusitis Dixon Anny. [facility], [id number] [place], [facility], . tel:[phone] [place] [address], [address] [place] [address], [facility], tel:[phone] [facility] ear ache (chief complaint) Acute non-recurrent maxillary sinusitisAcute mucoid otitis media of right ear Jessica Blanco. [address] [facility], [id number] [place], [place], [facility], . tel:[phone] [place] [address], [address] [place] [address], [facility], tel:[phone] [facility] chest pain and cough (chief complaint) Bronchitis Jessica Sánchez. [address] [place], [place] [address]man Radha., [id number] [place], [place], [facility], . tel:[phone] [address] [place] [address], [facility], tel:[phone] [facility] [place] DENTAL EXAMINATION Jing Jaimes. [address] [place], [facility], . tel:[phone] [place] [address], [address] [place] [address], [facility], tel:[phone] [facility] physical (chief complaint) Annual Adult PhysicalPPD Screen Kim Silva. [address] [place] [address], [id number], [place]. tel:[phone] [facility], [address] [facility], [place], [address], [place] tel:[phone] [facility] , knee pains right (chief complaint) Knee pain, acute Jessica Blanco. [address] [facility], [id number] [place], [address], [place]. tel:[phone] Family History Family Member Type Diagnosis Age At Onset Father Problem (finding) Hepatitis C (Cause Of D eath) Sister Problem (finding) murder (Cause Of ) Son Problem (finding) Sister Problem (finding) Mother Problem (finding) osteoporosis Son Problem (finding) asthma (Cause Of ) Father Problem (finding) Payers Payer name Insurance type Covered green party ID Shahriar ramos(s) DENTAL [facility] CI [id number] Social History Type Description Quantity Date Captured [...] due Goal Colonoscopy. Due on due Goal FOBT/FIT. Due on due Goal Influenza vaccin e. Due on due Goal HIV 1/0/2 Ag/Ab [...] vaccine ( ). Due on due Goal HIV 1/0/2 Ag/Ab [...] on due Goal DEXA scan due Goal DEXA scan due Goal HCV reflex to Qu ant RT PCR. Due on due Goal Pap/HPV testing. Due on due Goal Hep B Core Ab, I gM. Due on due Goal SBIRT. Due on du e Goal Zoster vaccine ( 1st). Due on due Goal Colonoscopy. Due on 027 due Goal HIV 1/0/2 Ag/Ab With Reflex. Due on due Goal Hep B Surface Ab , Quant. Due on due Goal Influenza vaccin e. Due on due Goal FOBT/FIT. Due on due Goal Tdap/Td. Due on due Goal Self-Management Goals. Due on due Goal Colonoscopy. Due on 027 due Goal HIV 1/0/2 Ag/Ab With Reflex. Due on due Goal SBIRT. Due on du e Goal FOBT/FIT. Due on due Goal Hep B Surface Ab , Quant. Due on due Goal Tdap/Td. Due on [...] due Goal Colonoscopy. Due on due Goal FOBT/FIT. Due on [...] vaccine ( 1st). Due on due Goal Hep B Surface Ab , Quant. Due on due Goal Pap/HPV testing. Due on due Goal DEXA scan due Goal Influenza vaccin e. Due on due Goal Tobacco cessation counseling completed Referral Ordered: Gastroenterology (related to Screening for colon cancer) ordered Referral Ordered: Lissy Orlando MD -Gynecology (related to Healthcare maintenance) ordered Referral Referred To: [facility] [address] [place], [phone] Ordered: Referrals: Gastroenterology. Evaluate and treat Appointment date/timeframe: 6 Months ordered Referral Referred To: Lissy Orlando MD [address] [facility] [id number] [place], [address] [phone] Ordered: Referrals: Gynecology. Lissy Orlando MD. Evaluate and treat Appointment date/timeframe: 6 Months ordered Future Order: Radiology Order Ma mmogram (Screen); Bilat, 2-view study of each breast, incl computer-aided detection when performed ([id number]), Ordered on: Ordered Future Order: Lab Order CBC w/di ff ([id number]), Ordered on: Ordered Future Order: Lab Order CMP ([id number]), Ordered on: Ordered Future Order: Lab Order Lipid Pa tonny ([id number]), Ordered on: Ordered Future Order: Lab Order Lyme, We miller Blot, Serum ([id number]), Ordered on: Ordered Future Order: Lab Order GENESIS ([id number]), Ordered on: Ordered Future Order: Lab Order Rheumato id Factor ([id number]), Ordered on: Ordered Future Order: Lab Order TSH ([id number]), Ordered on: Ordered Future Order: Lab Order UA w/dejon ro ([id number]), Ordered on: Ordered Future Order: Lab Order Vitamin D, 25-Hydroxy ([id number]), Ordered on: Ordered Future Order: Radiology Order Ma mmogram (Screening); Bilateral ([id number]), Ordered on: Ordered Future Order: Radiology Order Rj ne density study (by DEXA); appendicular skeleton (e.g., radius, wrist, heel) ([id number]), Ordered on: Ordered Future Order: Lab Order CMP ([id number]), Ordered on: Ordered Future Order: Lab Order Lipid Pa tonny ([id number]), Ordered on: Ordered History Of Present Illness [...]
== END 2024-08-15 11:03 | disposition home or self-care (01) ==
PROVIDERS: PCP Internal Medicine; Visit Provider Physician Assistant
DX: S82.892D Other fracture of left lower leg, subsequent encounter for closed fracture with routine healing (principal)
CPT/HCPCS: 99213

== ENCOUNTER → 2024-08-15 10:35 | Outpatient (BNV) | payer MEDICAID, SELFPAY | PROVIDERS: Visit Provider Radiology Diagnostic Radiology | DX: M25.572 Pain in left ankle and joints of left foot (principal) | CPT/HCPCS: 73610 ==

== ENCOUNTER 2024-08-16 13:00 | Outpatient (RCR) | payer MEDICAID, SELFPAY ==
--- NOTE | 2024-07-26 14:07 | MHC.PT.EP ---
[facility] [place] [facility] [place] [facility] [place] [facility] [address] [phone] F: [phone] F: [phone] F: [phone] F: [phone] Physical Therapy Plan of Care Date of Evaluation: 07/26/24 Date of Surgery: Diagnosis: closed left ankle fracture. Assessment: Patient is a 59 year old R handed female who presents with s/s consistent with closed ankle fracture L ankle. 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 Patient past medical history is non contributory. Current impairments include pain, balance, ROM, strength, activity tolerance and functional mobility. Functional limitations include decreased ability to stand, walk, transfer, and perform all standing/weight bearing activities. Patient is motivated with good rehab potential. Skilled PT will address impairments and functional limitations in order to achieve goals. Frequency and Duration: The patient will be seen 2x/week for 5 weeks Short Term Goals: I with HEP - 2 weeks AROM WNL - 3 weeks Swelling absent - 2 weeks Able to amb with boot on and LRAD full weight bearing - 3 weeks Halfway Goals: Normal gait mechanics - 5 weeks Strength 4/5 grossly - 5 weeks LEFS 48/80 - 5 weeks Treatment Plan: Modalities to reduce pain, spasms and effusion. Manual therapy to restore motion and function. Therapeutic exercise to improve strength and flexibility. Neuromuscular re-education for posture and balance. Therapeutic activities to return to functional activities of daily living. Electronically signed by: Rubin Gonzales PT Please sign and return to therapist. Thank you for your referral.
--- NOTE | 2024-08-04 14:19 | MHC.PT.EP ---
[facility] [place] [facility] [place] [facility] [place] [facility] [address]ime[address] Garcia [address] [phone] F: [phone] F: [phone] F: [phone] F: [phone] Physical Therapy Plan of Care Date of Evaluation: 07/26/24 Date of Surgery: Diagnosis: closed left ankle fracture. Assessment: Patient is a 59 year old R handed female who presents with s/s consistent with closed ankle fracture L ankle. 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 Patient past medical history is non contributory. Current impairments include pain, balance, ROM, strength, activity tolerance and functional mobility. Functional limitations include decreased ability to stand, walk, transfer, and perform all standing/weight bearing activities. Patient is motivated with good rehab potential. Skilled PT will address impairments and functional limitations in order to achieve goals. Frequency and Duration: The patient will be seen 2x/week for 5 weeks Short Term Goals: I with HEP - 2 weeks AROM WNL - 3 weeks Swelling absent - 2 weeks Able to amb with boot on and LRAD full weight bearing - 3 weeks Mcc Goals: Normal gait mechanics - 5 weeks Strength 4/5 grossly - 5 weeks LEFS 48/80 - 5 weeks Treatment Plan: Modalities to reduce pain, spasms and effusion. Manual therapy to restore motion and function. Therapeutic exercise to improve strength and flexibility. Neuromuscular re-education for posture and balance. Therapeutic activities to return to functional activities of daily living. Electronically signed by: Rubin Gonzales PT Please sign and return to therapist. Thank you for your referral.
--- NOTE | 2024-10-04 13:35 | MHC.PT.DC ---
[facility] [place] [facility] [place] [facility] [place] [facility] [address] Sophia Garcia [address] [phone] F: [phone] F: [phone] F: [phone] F: [phone] Physical Therapy Discharge Report Diagnosis: closed left ankle fracture. Date of Surgery: Date of Evaluation: 07/26/24 Date of Discharge: 09/04/24 Treatments to Date: 4 Cancellations to Date: No Shows to Date: Discharge Status: Independent with HEP Patient Elected to Stop Discharge Summary: 08/16/24: assisted pt in brace donning before amb with no AD or boot. Pt with small step length and slow jody but improved with increased reps. We will progress SLS activities. 08/09/24: ROM progressing well. tapering out of crutches. instructed in 1 crutch and crutchless ambulation today. no adverse reactions. 08/04/24: pt progressed well with skilled PT. Improved ROM and band tolerance. still with swelling in ankle. WE will continue to progress ROM/flex/strength activities as tolerated. Patient is a 59 year old R handed female who presents with s/s consistent with closed ankle fracture L ankle. 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 Patient past medical history is non contributory. Current impairments include pain, balance, ROM, strength, activity tolerance and functional mobility. Functional limitations include decreased ability to stand, walk, transfer, and perform all standing/weight bearing activities. Patient is motivated with good rehab potential. Skilled PT will address impairments and functional limitations in order to achieve goals. Electronically signed by: Rubin Gonzales, PT Please sign and return to therapist. Thank you for your referral.
== END 2024-10-04 13:36 | disposition home or self-care (01) ==
LOC: HO.PTCHIC 13:00
PROVIDERS: PCP Internal Medicine; Visit Provider Physician Assistant
DX: S82.892D Other fracture of left lower leg, subsequent encounter for closed fracture with routine healing (principal)
CPT/HCPCS: 97110; 97112; 97116; 97162

== ENCOUNTER 2024-08-21 09:41 | Outpatient (REF) | payer MEDICAID, SELFPAY ==
--- OUTSIDE RECORDS SUMMARY | 2024-08-21 10:25 | XMS_ITS | Encounter Summary ---
Author Organization [employer] Address [address] [facility] [address] [place] [address] Care Team Providers Care Medical Records Coordinator Name Role Phone Yuniel Chun MD Primary Care Prov ider Encounter Details Date Type Department Care Team (Late st Contact Info) Description 08/01/2024 3:30 PM EST Telemedicine [facility] [address] [place], [place] [phone] Yuniel Chun MD [address] [place] [address] Elevated blood pressure reading (Primary Dx); Dietary [...] documented as of this encounter Care Teams Medical Records Coordinator Relationship Specialty Start Date End Date Yuniel Chun MD [address] [place] [id number] PCP - General Internal Medicine 05/11/24 documented as of this encounter
--- OUTSIDE RECORDS SUMMARY | 2024-08-21 10:25 | XMS_ITS | Continuity of Care Document ---
Author Organization [facility] Address [address] [place] [address] Phone Care Team Providers Care Oil Speculator Name Role Phone No Information Unavailable Unavailable [...] Location Reason(s) For Visit Diagnoses Date Provider [address] tel:[phone] Location No Information No Information [place] [address], tel:[phone] [facility] No Information Raffucci Theodore. [address] [place] [address], [facility], . tel:[phone] [place] [address], tel:[phone] [facility] [place] No Information Raffucci Theodore. [address] [place], [facility], . tel:[phone], [facility], [place] tel:[phone] Dental Prakash No Information Raffucci Theodore. [address] [place], [facility], [place]. tel:[phone] [place] [address], [address] [place] [address], [facility], tel:[phone] Dental Prakash No Information Raffucci Theodore. [address] [place], [place], [facility], [place]. tel:[phone] [place] [address], [address] [place] [address], [facility], tel:[phone] Dental Prakash No Information Raffucci Theodore. [address] [place], [facility], . tel:[phone] [place] [address], [address] [place] [address], [facility], tel:[phone] [facility] left flank pain (chief complaint)W orried about BP (chief complaint) MyalgiaScreening for colon cancerScreening mammogram for breast cancerElevated blood pressure readingEncntr for general adult medical exam w/o abnormal findings Florin Hampton. [address] [place], [id number], . tel:[phone] [place] [address], [facility], [place] tel:[phone] [facility] [place] Encounter for dental exam and cleaning w/o abnormal findings Raffucci Theodore. [address] [place], [facility], [place]. tel:[phone] [place] [address], [address] [place] [address], [facility], [place] tel:[phone] [facility] [place] Encounter for dental exam and cleaning w/o abnormal findings Raffucci Theodore. [address] [place], [facility], [place]. tel:[phone] [place] [address] [place] [address], [facility], tel:[phone] [facility] [place] Encounter for dental exam and cleaning w/o abnormal findings Jing Jaimes. [address] [place], [facility], . tel:[phone] [place] [address], [address] [place] [address], [facility], tel:[phone] Dental [place] Encounter for dental exam and cleaning w/o abnormal findings Jing Jaimes. [address] [place], [facility], . tel:[phone] [place] [address], [address] [place] [address], [facility], tel:[phone] [facility] [place] Encounter for dental exam and cleaning w/o abnormal findings Jing Jaimes. [address] [place], [facility], [place]. tel:[phone] [place] [address], [address] [place] [address], [facility], tel:[phone] [facility] [place] Encounter for dental exam and cleaning w/o abnormal findings Jing Jaimes. [address] [place], [facility], . tel:[phone] [place] [address], [facility], tel:[phone] [facility] [place] Encounter for dental exam and cleaning w/o abnormal findings Kvng Hampton. [address] [place], [place], [id number], [place]. tel:[phone] [place] [address], [facility], tel:[phone] [facility] [place] Encounter for dental exam and cleaning w/o abnormal findings Jing Jaimes. [address] [place], [facility], . tel:[phone] [place] [address], [place], [address], tel:[phone] [facility] [place] Encounter for dental exam and cleaning w/o abnormal findings Jing Jaimes. [address] [place], [address], [place]. tel:[phone] [facility], [address] [place] [address], [address], [place] tel:[phone] [facility] [place] Encounter for dental exam and cleaning w/o abnormal findings Jing Jaimes. [address] [facility] [place], [facility], [place]. tel:[phone] [facility], [address] [place] [address], [facility], [place] tel:[phone] [facility] [place] Encounter for dental exam and cleaning w/o abnormal findings Jing Jaimes. [address] [place], [facility], [place]. tel:[phone] [place] [address], [address] [place] [address], [facility], [place] tel:[phone] [facility] [place] Encounter for dental exam and cleaning w/o abnormal findings Jing Jaimes. [address] [place], [facility], [place]. tel:[phone] [facility], [address] [place] [address], [facility], [place] tel:[phone] [facility] [place] Encounter for dental exam and cleaning w/o abnormal findings Jing Jaimes. [address] [place], [facility], [place]. tel:[phone] [facility], [address] [place] [address], [address], [place] tel:[phone] [facility] [place] Encounter for dental exam and cleaning w/o abnormal findings Jing Jaimes. [address] [place], [facility], [place]. tel:[phone] [facility], [address] [place] [address], [facility], tel:[phone] [facility] [place] Encounter for dental exam and cleaning w/o abnormal findings Bala Gomes. [address] [place], [facility], . [facility], [address] [place] [address], [facility], tel:[phone] [facility] [place] Encounter for dental exam and cleaning w/o abnormal findings Bala Gomes. [address] [place], [facility], . [facility], [address] [place] [address], [facility], tel:[phone] [facility] [place] Encounter for dental exam and cleaning w/o abnormal findings Bala Gomes. [address] [place], [facility], . [address], [facility], tel:[phone] [facility] [place] Encounter for dental exam and cleaning w/o abnormal findings Bala Gomes. [address] [place], [facility], . [address], [facility], tel:[phone] [facility] Adult test result f/u (chief complaint) Age-related osteoporosis without current pathological fractureVitamin D deficiencyBody mass index (BMI) 22.0-22.9, adult Iliana Pena. [address], [place], [place], [facility], . tel:[phone], [facility], tel:[phone] [facility] Adult joint pain (chief complaint) Pain, joint, multiple sitesScreening mammogram, encounter forHealthcare maintenanceBody mass index (BMI) 21.0-21.9, adult Iliana Pena. [address], [place], [place], [facility], . tel:[phone] [facility], [address] [place] [address], [facility], tel:[phone] [facility] [place] Encounter for dental exam and cleaning w/o abnormal findings Bala Gomes. [address] [place], [address], [place]. [facility], [address] [place] [address], [address], tel:[phone] [facility] [place] Encounter for dental exam and cleaning w/o abnormal findings Bala Gomes. [address] [place], [address], [place]. [facility], [address] [place] [address], [facility], tel:[phone] [facility] [place] Encounter for dental exam and cleaning w/o abnormal findings Bala Gomes. [address] [place], [address], [place]. [facility], [address] [place] [address], [facility], tel:[phone] [facility] [place] Encounter for dental exam and cleaning w/o abnormal findings Bala Gomes. [address] [place], [facility], [place]. [facility], [address] [place] [address], [facility], tel:[phone] [facility] [place] Encounter for dental exam and cleaning w/o abnormal findings Bala Gomes. [address] [place], [address], [place]. [facility], [address] [place] [address], [facility], tel:[phone] [facility] [place] Encounter for dental exam and cleaning w/o abnormal findings Bala Gomes. [address] [place], [address], [place]. [address], [facility], tel:[phone] [facility] [place] Encounter for dental exam and cleaning w/o abnormal findings Bala Gomes. [address] [place], [facility], [place]. [facility], [address] [place] [address], [address] [place] [address] tel:[phone] [facility] [place] Encounter for dental exam and cleaning w/o abnormal findings Rafat Nguyen. [address] [place] [address], [facility], . tel:[phone] [place] [address], [address] [place] [address], [facility], tel:[phone] [facility] cold symptoms (chief complaint) Acute non-recurrent maxillary sinusitis Dixon Anny. [address] [facility] [place], [id number] [place], [facility], . tel:[phone] [place] [address], [address] [place] [address], [facility], tel:[phone] [facility] ear ache (chief complaint) Acute non-recurrent maxillary sinusitisAcute mucoid otitis media of right ear Jessica Blanco. [address] [facility], [id number] [place], [facility], . tel:[phone] [place] [address], [address] [place] [address], [facility], tel:[phone] [facility] chest pain and cough (chief complaint) Bronchitis Jessica Sánchez. [address] [place], [place] [address]man Radha., [id number] [place], [facility], . tel:[phone] [place] [address], [facility], tel:[phone] [facility] [place] DENTAL EXAMINATION Jing Jaimes. [address] [place], [facility], . tel:[phone] [place] [address], [address] [place] [address], [facility], tel:[phone] [facility] [facility] physical (chief complaint) Annual Adult PhysicalPPD Screen Kim Silva. [address] [place] [address], [id number], [place]. tel:[phone] [facility], [address] [facility], [place], [address], [place] tel:[phone] [facility] , knee pains right (chief complaint) Knee pain, acute Jessica Blanco. [address] [facility], [id number] [place], [address], [place]. tel:[phone] Family History Family Member Type Diagnosis Age At Onset Father Problem (finding) Hepatitis C (Cause Of D eath) Sister Problem (finding) murder (Cause Of ) Son Problem (finding) Sister Problem (finding) Mother Problem (finding) osteoporosis Son Problem (finding) asthma (Cause Of ) Father Problem (finding) Payers Payer name Insurance type Covered libertarian ID Shahriar ramos(s) DENTAL [facility] CI [id number] Social History Type Description Quantity Date Captured [...] Ab, I gM. Due on due Goal Zoster vaccine ( [...] to Healthcare maintenance) ordered Referral Referred To: [facility] [address] [place], [address] [phone] Ordered: Referrals: Gastroenterology. Evaluate and treat Appointment date/timeframe: 6 Months ordered Referral Referred To: Lissy Orlando MD [address] [facility] [id number] [place], [phone] Ordered: Referrals: Gynecology. Lissy Orlando MD. Evaluate and treat Appointment date/timeframe: 6 Months ordered Future Order: Radiology Order Ma mmogram (Screen); Bilat, 2-view study of each breast, incl computer-aided detection when performed ([id number]), Ordered on: Ordered Future Order: Lab Order CBC w/di ff ([id number]), Ordered on: Ordered Future Order: Lab Order CMP ([id number]), Ordered on: Ordered Future Order: Lab Order Lipid Pa tonny ([id number]), Ordered on: Ordered Future Order: Lab Order Lyme, We miller Blot, Serum ([id number]), Ordered on: Ordered Future Order: Lab Order GENESIS ([id number]), Ordered on: Ordered Future Order: Lab Order Rheumato id Factor ([id number]), Ordered on: Ordered Future Order: Lab Order TSH ([id number]), Ordered on: Ordered Future Order: Lab Order UA w/dejon ro ([id number]), Ordered on: Ordered Future Order: Lab Order Vitamin D, 25-Hydroxy ([id number]), Ordered on: Ordered Future Order: Radiology Order Ma mmogram (Screening); Bilateral ([id number]), Ordered on: Ordered Future Order: Radiology Order Rj ne density study (by DEXA); appendicular skeleton (e.g., radius, wrist, heel) ([id number]), Ordered on: Ordered Future Order: Lab Order CMP ([id number]), Ordered on: Ordered Future Order: Lab Order Lipid Pa tonny ([id number]), Ordered on: Ordered History Of Present Illness [...] week. Related to Elevated blood pressure reading Screening mammogram ordered. Rel ated to Screening mammogram for breast cancer Refer to GI for colonoscopy. Rel ated to Screening for colon cancer Naproxen and Cyclobe nzaprine prescribed. Related to Myalgia Start Calcium and Vi tamin D supplement [...]
--- OUTSIDE RECORDS SUMMARY | 2024-08-21 10:25 | XMS_ITS | Clinical Summary ---
Author Organization [employer] Address [address] [facility] 7t [place] [address] Care Team Providers Care Batter Mixer Helper Name Role Phone Yuniel Chun MD Primary [...] times daily. 60 tablet 5 08/13/19 25 Active Problems Problem Noted Date Diagnosed [...] [place] follow [place] Hospitalizations:- Er visit on the past year: [...] Team Description 08/01/2024 3:30 PM EST Telemedicine [facility] [address] [facility] [place] [address] Yuniel Chun MD Elevated blood pressure reading (Primary Dx); Dietary counseling; Exercise counseling 08/01/2024 Travel 07/17/2024 Orders Only [facility] External Provider, [facility] 07/14/2024 2:00 PM EST Telemedicine [facility] [address] [place] [address] Aster Smith MD Acute left ankle pain (Primary Dx) 07/14/2024 Travel 07/13/2024 Telephone [facility] [address] [facility] [place] [address] Yuniel Chun MD Nurse Triage 07/06/2024 Telephone [facility] [address] [place] [address] Yuniel Chun MD APPT/ RECALL 06/29/2024 Telephone [facility] [address] [place] [address] Yuniel Chun MD 06/29/2024 Orders Only [facility] [address] [place] [address] Yuniel Chun MD 06/29/2024 Orders Only [facility] [address] [place] [address] Yuniel Chun MD 06/19/2024 3:15 PM EST Office Visit [facility] [address] [place] [address] Yuniel Chun MD Overweight (Primary Dx); Dietary counseling; Exercise counseling; Elevated blood pressure reading; Normal physical examination 06/19/2024 Travel 06/05/2024 Patient Outreach [facility] [address] [place] [address] Yuniel Chun MD Pre-visit Planning ([facility] unable to reach [facility]) from Last 3 Months Family History Medical [...] Vaccines (1 of 2) 2013 COVID-19 Vaccine (1 - 2023-2 5 season) 2024 Influenza Vaccine [...] [address] ?[place] [address] ?XRay Report ? Signed ? Patient: Ayah Bautista ?MR#: [id number] ?? 31 ? : 1965 ?Acct:[id number] ? Age/Sex: 59 / F ?ADM Date: 07/17/24 ? Loc: HO.HOSX ? Attending Dr: Belle Steve PA-C ? Ordering Physician: Belle Steve PA-C ?? Date of Service: 07/17/24 ?? Procedure(s): XR ankle LT min 3V ?? Accession Number(s): [id number] ? cc: Yuniel Chun MD; Belle Steve [...] DD/ 1123 ? TD/TT: 07/17/24 1125 ? Manufacturing Worker: ? Procedure Note Donotlizzieter, Image - 07/19/2024 [facility] [address] [place] [address] Drive [address] [place] [address] XRay Report Signed Patient: Ayah BautistaMR#: [id number] 31 : 1965Acct:[id number] Age/Sex: 59 / FADM Date: 07/17/24 Loc: CONNIE Attending Dr: Belle Steve PA-C Ordering Physician: Belle Steve PA-C Date of Service: 07/17/24 Procedure(s): XR ankle LT min 3V Accession Number(s): [id number] cc: Yuniel Chun MD; Belle Steve PA-C [...] 07/19/24 1345 DD/ 1123 TD/TT: 07/17/24 1125 Manufacturing Worker: us [facility] External Provider IMG XR PROCEDURES Edited Result - Final * BD DEXA Axial (06/27/2024 2:45 PM EST) Anatomical Region Laterality Modality Body Radiographic Mine ging 06/27/2024 2:45 PM EST Narrative 06/28/2024 10:15 AM EST ? [facility] ? [address] ?[place] [address] ? Mammography Report ? Signed ? Patient: Ayah Bautista ?MR#: [id number] ?? [birth year] ? : 1965 ?Acct:[id number] ? Age/Sex: 59 / F ?ADM Date: /17/24 ? Loc: HO.MAMMO ? Attending Dr: Yuniel Jalloh MD ? Ordering Physician: Yuniel Chun MD ?Res ?? ults: ? Date of Service: /17/24 ?Follow Up: ? Procedure(s): XR DEXA axial skeleton ?? Accession Number(s): [id number] ? cc: Yuniel Chun MD ? EXAMINATION: ?? BONE DENSITOMETRY ? CLINICAL INDICATION: ?? Osteoporosis. ? COMPARISON: ?? This is the patient's baseline examination. ? TECHNIQUE: Using a [employer] DXA System (software version: ?? 13.1) manufactured by [employer], dual-energy x-ray absorptiometry ?? was performed of [...] DD/ 1445 ? TD/TT: 06/27/24 1500 ? Manufacturing Worker: SK ? Procedure Note Donotcarmeninterpreter, Image - 06/28/2024 [facility] [address] [place], [place] [address] Mammography Report Signed Patient: Ayah BautistaMR#: [id number] [birth year] : 1965Acct:[id number] Age/Sex: 59 / FADM Date: 06/27/24 Loc: HO.MAMMO Attending Dr: Yuniel Jalloh MD Ordering Physician: Yuniel Chun ults: Date of Service: 06/27/24Follow Up: Procedure(s): XR DEXA axial skeleton Accession Number(s): [id number] cc: Yuniel Chun MD EXAMINATION: BONE DENSITOMETRY CLINICAL INDICATION: Osteoporosis. COMPARISON: This is the patient's baseline examination. TECHNIQUE: Using a [employer] DXA System (software version: 13.1) manufactured by [employer], dual-energy x-ray absorptiometry was performed of the [...] by: Farhat Sosa MD 06/28/2024 10:12 AM [facility] Dictated By: Farhat Sosa MD Signed By: <Electronically signed by Farhat Sosa MD in OV> 06/28/24 1012 DD/ 1445 TD/TT: 06/27/24 1500 Manufacturing Worker: FABIOLA us Yuniel Jalloh MD IMG DXA PROCEDURES Edited Result - Final * BI Mammogram Screening Tomosynthesis Bilateral (06/26/2024 3:51 PM EST) Anatomical Region Laterality Modality Breast Bilateral Mammography 06/26/2024 3:51 PM EST Narrative 07/18/2024 10:04 AM EST ? [facility] [place] ? [address] ?[place], [place] [address] ? Mammography Report ? Signed ? Patient: Ayah Bautista ?MR#: [id number] ?? 31 ? : 1965 ?Acct:[id number] ? Age/Sex: 59 / F ?ADM Date: 12/16/24 ? Loc: HO.MAMMO ? Attending Dr: Yuniel Jalloh MD ? Ordering Physician: Yuniel Chun MD ? Results: 0Incomplete: Needs Additional Imaging ?? Evaluation ? Date of Service: 12/16/24 ?Follow Up: Additional Imagi ?? ng ? Procedure(s): MM tomosynthesis screening BI ?? Accession Number(s): [id number] ? cc: Yuniel Chun MD ? EXAMINATION: [...] ??Cinthia Sutton DO ??07/18/2024 10:01 AM EST ?? RP ? Dictated By: ?Cinthia Sutton DO ? Signed By: ?<Electronically signed by Cinthia Sutton, DO in OV> ? 07/18/24 1001 ? DD/DT: 16/ 1551 ? TD/TT: 16/24 1551 ? Manufacturing Worker: ? Procedure Note Donotuseinterpreter, Image - 07/18/2024 [facility] [address] [place] [address] [place] [address] Mammography Report Signed Patient: Ayah BautistaMR#: [id number] [birth year] : 1965Acct:[id number] Age/Sex: 59 / FADM Date: 06/26/24 Loc: HO.MAMMO Attending Dr: Yuniel Jalloh MD Ordering Physician: Yuniel Chun MD Results: 0Incomplete: Needs Additional Imaging Evaluation Date of Service: 06/26/24Follow Up: Additional Imagi ng Procedure(s): MM tomosynthesis screening BI Accession Number(s): [id number] cc: Yuniel Chun MD EXAMINATION: MM SCREENING [...] 07/18/24 1001 DD/ 1551 TD/TT: 06/26/24 1551 Manufacturing Worker: Yuniel Jalloh MD IMG BI PROCEDURES Edited Result - Final from Last [address] [place] [address] [place] [address] C3 Care Teams Batter Mixer Helper Relationship Specialty Start Date End Date Yuniel Chun MD [address] [place] [address] PCP - General Internal Medicine 05/11/24
--- OUTSIDE RECORDS SUMMARY | 2024-08-21 10:25 | XMS_ITS | Encounter Summary ---
Author Organization [employer] Address [address] [facility] 7t [place] [address] Care Team Providers Care Learning Support Specialist Name Role Phone Yuniel Chun MD [...] documented as of this encounter Care Teams Learning Support Specialist Relationship Specialty Start Date End Date Yuniel Chun MD [address] [place] [address] PCP - General Internal Medicine 05/11/24 documented as of this encounter
[2024-08-21 14:04] LABS: MANUAL DIFF FLAG NO
[2024-08-21 14:08] LABS: Basophils Percent Auto 0.7 % (0-2); Eosinophils Absolute Auto 0.3 X10*3/uL (0.0-0.4); Hematocrit 40.2 % (37.0-47.0); Hemoglobin 12.9 g/dl (12.0-16.0); Imm Gran Abs Auto 0.04 X10*3/uL (0.00-0.03); Imm Gran Pct Auto 0.7 % (0.0-0.4); Lymphocytes Absolute Auto 2.1 X10*3/uL (1.2-4.9); Lymphocytes Percent Auto 37.2 % (20-40); Mean Corpuscular HGB Conc 32.1 g/dl (31.0-35.0); Mean Corpuscular Hemoglobin 30.6 pg (27.0-33.0); Mean Corpuscular Volume 95.3 fL (80.0-98.0); Mean Platelet Volume 10.4 fL (9.4-12.3); Monocytes Absolute Auto 0.4 X10*3/uL (0.1-1.2); Monocytes Percent Auto 7.9 % (2-11); Neutrophils Absolute Auto 2.7 x10*3/uL (2.0-8.3); Neutrophils Percent Auto 48.5 % (45-73); Platelet Count 342 X10*3/uL (160-400); Red Blood Count 4.22 X10*6/uL (4.20-5.50); Red Cell Distribution Width 13.2 % (11.0-16.0); White Blood Count 5.6 X10*3/uL (4.8-10.8)
[2024-08-21 14:24] LABS: Estimated Average Glucose 108 mg/dL; Hemoglobin A1C 116.0553 umol/L; Hemoglobin A1c % 5.4 % (<6.0); Total Hemoglobin (HGBA1C) 3311.2765 umol/L
[2024-08-21 14:36] LABS: Alanine Aminotransferase 29 U/L (0-31); Alkaline Phosphatase 79 U/L (39-117); Anion Gap 8 (12-20); Aspartate Amino Transferase 34 U/L (5-31); Bilirubin Total 0.3 mg/dL (0.0-1.0); Blood Urea Nitrogen 19 mg/dL (9-16); Calcium 9.1 mg/dL (8.4-10.2); Carbon Dioxide 26 mmol/L (22-29); Chloride 110 mmol/L (96-108); Cholesterol 195 mg/dL (<200); Estimated Glomerular Filt Rate > 60; Glucose Random 78 mg/dL (60-115); HDL Cholesterol 45 mg/dL (>40); Iron 80 mcg/dL (30-160); LDL Cholesterol Calculated 118 mg/dL (<100); Percent Iron Saturation 28 % (15-50); Sodium 140 mmol/L (135-145); Total Iron Binding Capacity 287 mcg/dL (228-428); Total Protein 7.3 g/dL (6.5-8.0); Triglycerides 161 mg/dL (<150); Unsaturated Iron Binding 207 ug/dL
[2024-08-21 14:43] LABS: HIV AB/AG Nonreactive (Nonreactive); HIV Num 1 0.16 S/CO (0.00-0.99); ~HepC Num1 0.07 S/CO (0.00-0.79); ~Hepatitis C Antibody Nonreactive (Nonreactive)
[2024-08-21 14:50] LABS: TSH reflex Free T4 1.78 uIU/mL (0.32-4.0)
[2024-08-21 14:57] LABS: Folate 10.8 ng/mL (> or = 4.0); Vitamin B12 389 pg/mL (200-900)
== END 2024-08-21 09:42 | disposition home or self-care (01) ==
LOC: HO.CHCLDS 09:41
PROVIDERS: Visit Provider Internal Medicine
DX: E66.3 Overweight (principal)
CPT/HCPCS: 36415; 80053; 80061; 82607; 82746; 83036; 83540; 84443; 85025; 86803; 87389

== ENCOUNTER → 2024-08-22 09:30 | Outpatient (BNV) | payer MEDICAID, SELFPAY | PROVIDERS: PCP Internal Medicine; Visit Provider Internal Medicine | DX: N60.11 Diffuse cystic mastopathy of right breast (principal); R92.333 Mammographic heterogeneous density, bilateral breasts | CPT/HCPCS: 76642; 77062; 77066 ==

== ENCOUNTER 2024-08-22 09:37 | Outpatient (REF) | payer MEDICAID, SELFPAY ==
--- NOTE | ~2024-08-22 | MM_ITS ---
EXAMINATION: MM DIAGNOSTIC DIGITAL BREAST TOMOSYNTHESIS, BILATERAL Bilateral Limited ultrasound. CLINICAL INFORMATION: Call back back from screening for bilateral asymmetries. COMPARISON: Mammography: Comparison is made with relevant prior exams. TECHNIQUE: Digital breast mammography with tomosynthesis is performed in both the craniocaudal and mediolateral oblique views along with computer-aided detection (CAD). Bilateral Limited ultrasound. FINDINGS: The breasts are heterogeneously dense, which may obscure small masses (ACR BI-RADS breast composition Category c). Left: Asymmetry in the lateral left breast posterior depth on CC view partially effaces on additional imaging projections. No suspicious other abnormal findings or calcifications. Targeted color Doppler ultrasound scanning in the lateral breast from 1-5 o'clock demonstrates normal fibroglandular breast tissue. Right: Circumscribed oval mass measuring 9 mm in the upper outer breast posterior depth persist on additional imaging projections. No suspicious calcifications or other abnormal findings. Targeted color Doppler ultrasound scanning in the upper outer breast demonstrates at 9:00 8 cm from the nipple a hypoechoic oval solid mass versus complicated cyst measuring 8 x 8 x 5 mm this is a probable correlate for the 9 mm oval mass on mammography in the upper outer breast. There is a hypoechoic oval solid mass versus complicated cyst at 8:00 8 cm from nipple measuring 5 x 4 x 4 mm. Results are provided to the patient at time of visit by the technologist. MM/MM tomosynthesis added view BI IMPRESSION: Left: Asymmetry lateral left breast on CC view without sonographic correlate. Recommend 6 month follow-up for further evaluation of stability. Right: Complicated cysts versus solid masses at 8:00 and 9:00 on ultrasound. Recommend 6 month follow-up ultrasound for further evaluation of stability. ASSESSMENT: BI-RADS BI-RADS 3 - Probably benign finding(s) - 6 month follow-up suggested RECOMMENDATION: 6 Month F/U This patient's information was entered into a reminder system with a target due date for their next mammogram. Electronically signed by: Cinthia Sutton DO 08/22/2024 10:45 AM SAUL
--- OUTSIDE RECORDS SUMMARY | 2024-08-22 10:44 | XMS_ITS | Encounter Summary ---
Author Organization [employer] Address [address] [facility] 7t [place] [address] Care Team Providers Care Electroplating Sales Representative Name Role Phone Yuniel Chun MD Primary [...] documented as of this encounter Care Teams Electroplating Sales Representative Relationship Specialty Start Date End Date Yuniel Chun MD [address] [place] [address] PCP - General Internal Medicine 05/11/24 documented as of this encounter
--- OUTSIDE RECORDS SUMMARY | 2024-08-22 10:44 | XMS_ITS | Clinical Summary ---
Author Organization [employer] Address [address] [facility] [address] [place] [address] Care Team Providers Care Syrup Filterer Name Role Phone Yuniel Chun MD Primary [...] [place] Hospitalizations:- Er visit on the past year: [...] Team Description 08/01/2024 3:30 PM EST Telemedicine [facility] [address] [facility] [place] [address] Yuniel Chun MD Elevated blood pressure reading (Primary Dx); Dietary counseling; Exercise counseling 08/01/2024 Travel 07/17/2024 Orders Only [facility] External Provider, [facility] 07/14/2024 2:00 PM EST Telemedicine [facility] [address] [place] [address] Aster Smith MD Acute left ankle pain (Primary Dx) 07/14/2024 Travel 07/13/2024 Telephone [facility] [address] [facility] [place] [address] Yuniel Chun MD Nurse Triage 07/06/2024 Telephone [facility] [address] [place] [address] Yuniel Chun MD APPT/ RECALL 06/29/2024 Telephone [facility] [address] [place] [address] Yuniel Chun MD 06/29/2024 Orders Only [facility] [address] [place] [address] Yuniel Chun MD 06/29/2024 Orders Only [facility] [address] [place] [address] Yuniel Chun MD 06/19/2024 3:15 PM EST Office Visit [facility] [address] [place] [address] Yuniel Chun MD Overweight (Primary Dx); Dietary counseling; Exercise counseling; Elevated blood pressure reading; Normal physical examination 06/19/2024 Travel 06/05/2024 Patient Outreach [facility] [address] [place] [address] Yuniel Chun MD Pre-visit Planning ([facility] unable to reach [facility]) from Last 3 Months Family History [...] FIT DNA/Cologuard 1965 FIT 1965 FOBT 1965 Sigmoidoscopy 1965 DTaP/Tdap/Td Vaccines (1 - Tdap) 1982 Pap [...] older (1 - 1-dose 75+ series) 2038 HIV Screening Completed 08/21/2024 Hepatitis C Screening Completed 08/21/2024 HIB Vaccines Aged Out No longer eligi [...] Procedure Name Priority Date/Time Associated Diagnosis Comments HEPATITIS C AB W/REFL TO HCV RNA, QN, PCR Routine 08/21/2024 9:42 AM EST Overweight HIV 1/2 ANTIGEN/ANTIBODY, FOURTH GENERATION W/RFL Routine 08/21/2024 9:42 AM EST Overweight VITAMIN B12/FOLATE, SERUM PANEL Routine 08/21/2024 9:42 AM EST Overweight IRON AND TOTAL IRON BINDING CAPACITY Routine 08/21/2024 9:42 AM EST Overweight HEMOGLOBIN A1C Routine 08/21/2024 9:42 AM EST Overweight TSH W/REFLEX TO FT4 Routine 08/21/2024 9 :42 AM EST Overweight LIPID PANEL, STANDARD Routine 08/21/2024 9:42 AM EST Overweight COMPREHENSIVE METABOLIC PANEL Routine 08/21/2024 9:42 AM EST Overweight CBC WITH AUTO DIFFERENTIAL Routine 08/21/2024 9:42 AM EST Overweight XR ANKLE 3+ VIEWS LEFT Routine 07/17/2024 11:23 AM EST BD DEXA AXIAL Routine 06/27/2024 2:45 PM EST Age-related osteoporosis without current pathological fracture BI MAMMOGRAM SCREENING TOMOSYNTHESIS BILATERAL Routine 06/26/2024 3:51 PM EST Encounter for screening mammogram for malignant neoplasm of breast from Last 3 Months Results * Vitamin B12 (Cobalamin) and Folate Panel, Serum (08/21/2024 9:42 AM EST) Vitamin B12 389 200 - 900 pg/mL [facility] Comment:NORMAL 200-900 PG/ML INDETERMINATE 160-199 PG/ML DEFICIENT < 160 PG/ML Folate 10.8 > or = 4.0 ng/mL [facility] Comment:Reference Values:> o r = 4.0 ng/mL< 4.0 ng/mL suggests folate deficiency Methotrexate, aminopterin and folinic acid(leucovorin) are chemotherapeutic agents whose molecularstructures are similar to folate; therefore, the Architectfolate assay cannot be used for patients using these drugs. Blood Venous blood specimen / Unknown 08/21/2024 9:42 AM EST 08/21/2024 1:59 PM EST Yuniel Jalloh MD LAB BLOOD ORDERABL ES Final Result Performing Organization Address [facility] Co de Phone Number [facility] [address] [place] [phone] * TSH W/Reflex to FT4 (08/21/2024 9:42 AM EST) Pathologist [facility] TSH reflex Free T4 1.78 0.32 - 4.0 uIU/mL [facility] Blood Venous blood specimen / Unknown 08/21/2024 9:42 AM EST 08/21/2024 1:59 PM EST Yuniel Jalloh MD LAB BLOOD ORDERABL ES Final Result Performing Organization Address [facility] de Phone Number [facility] [address] [place] [phone] * (ABNORMAL) CBC auto differential (08/21/2024 9:42 AM EST) White Blood Count 5.6 4.8 - 10.8 X10*3/uL [facility] Red Blood Count 4.22 4.20 - 5.50 X10*6/uL [facility] Hemoglobin 12.9 12.0 - 16.0 g/dl [facility] Hematocrit 40.2 37.0 - 47.0 % [facility] Mean Corpuscular Volume 95.3 80.0 - 98.0 fL [facility] Mean Corpuscular Hemoglobin 30.6 27.0 - 33.0 pg [facility] Mean Corpuscular HGB Conc 32.1 31.0 - 35.0 g/dl [facility] Red Cell Distribution Width 13.2 11.0 - 16.0 % [facility] Platelet Count 342 160 - 400 X10*3/uL [facility] Mean Platelet Volume 10.4 9.4 - 12.3 fL [facility] Neutrophils Percent Auto 48.5 45 - 73 % [facility] Imm Gran Pct Auto 0.7(H) 0.0 - 0.4 % [facility] Lymphocytes Percent Auto 37.2 20 - 40 % [facility] Monocytes Percent Auto 7.9 2 - 11 % [facility] Eosinophils Percent Auto 5.0(H) 0 - 4 % [facility] Basophils Percent Auto 0.7 0 - 2 % [facility] NRBC Pct Auto 0.0 0.0 - 0.2 /100WBC [facility] Neutrophils Absolute Auto 2.7 2.0 - 8.3 x10*3/uL [facility] Imm Gran Abs Auto 0.04(H) 0.00 - 0.03 X10*3/uL [facility] Lymphocytes Absolute Auto 2.1 1.2 - 4.9 X10*3/uL [facility] Monocytes Absolute Auto 0.4 0.1 - 1.2 X10*3/uL [facility] Eosinophils Absolute Auto 0.3 0.0 - 0.4 X10*3/uL [facility] Basophils Absolute Auto 0.0 0.0 - 0.2 X10*3/uL [facility] NRBC Abs Auto 0.000 0.0 - 0.012 X10*3/uL [facility] Blood Venous blood specimen / Unknown 08/21/2024 9:42 AM EST 08/21/2024 1:59 PM EST us Yuniel Jalloh MD LAB BLOOD ORDERABL ES Final Result [facility] [address] [place], [place] [phone] * Hepatitis C Antibody with Reflex to HCV, RNA, Quantitative, Real-Time PCR (08/21/2024 9:42 AM EST) Hepatitis C Antibody Nonreactive Nonreactive [facility] Comment:Antibodies to HCV no t detected; does not exclude early acuteHCV infection. Blood Venous blood specimen / Unknown 08/21/2024 9:42 AM EST 08/21/2024 1:59 PM EST Yuniel Jalloh MD LAB BLOOD ORDERABL ES Final Result Performing Organization Address [facility] Co de Phone Number [facility] [address] [place] [phone] * Iron And Total Iron Binding Capacity (08/21/2024 9:42 AM EST) Pathologist [facility] Iron 80 30 - 160 mcg/dL [facility] Total Iron Binding Capacity 287 228 - 428 mcg/dL [facility] Percent Iron Saturation 28 15 - 50 % [facility] Unsaturated Iron Binding 207 ug/dL [facility] Blood Venous blood specimen / Unknown 08/21/2024 9:42 AM EST 08/21/2024 1:59 PM EST Yuniel Jalloh MD LAB BLOOD ORDERABL ES Final Result Performing Organization Address [facility] Phone Number [facility] [address] [place] [phone] * HIV-1/2 Antigen and Antibodies, Fourth Generation, with Reflexes (08/21/2024 9:42 AM EST) HIV AB/AG Nonreactive Nonreactive [facility] Comment:HIV-1 p24 Ag and/or HIV-1/HIV-2 Ab not detected.A test result that is nonreactive does not exclude thepossibility of exposure to or infection with HIV-1 and/orHIV-2. Nonreactive results in this assay for individualswith prior exposure to HIV-1 and/or HIV-2 may be due toantigen and antibody levels that are below the limit ofdetection of this assay.The Scientific IntakeniEpicTopic HIV Ag/Ab Combo assay result andsupplemental assay results should be interpreted inconjunction with the patient's clinical presentation,history and other laboratory results. If the results areinconsistent with clinical evidence, additional testing issuggested to confirm the result. Blood Venous blood specimen / Unknown 08/21/2024 9:42 AM EST 08/21/2024 1:59 PM EST Yuniel Jalloh MD LAB BLOOD ORDERABL ES Final Result Performing Organization Address [facility] Co de Phone Number [facility] [address] [place] [address] [phone] * Hemoglobin A1c (08/21/2024 9:42 AM EST) Hemoglobin A1c 5.4 <6.0 % [facility] Comment:Hemoglobin A1C Refer ence Range Adults: 4.8 - 6.0 % Non diabetic: < 6.0 % Goal: < 7.0 %Additional Action Suggested: > 8.0 %Note: Hemoglobin A1c results are invalid for patients with abnormal amounts of HbF. Blood transfusions may impact the HbA1c concentration in the patient sample. Estimated Average Glucose 108 mg/dL [facility] Comment:eAG = Estimated ave rage glucose which is %A1C expressed asaverage glucose, using the formula of the [id number]-[id number] Glucose study (ADAG), Diabetes Care, Vol.31,#8,Feb. 2007 Blood Venous blood specimen / Unknown 08/21/2024 9:42 AM EST 08/21/2024 1:59 PM EST us Yuniel Jalloh MD LAB BLOOD ORDERABL ES Final Result Performing Organization Address [facility] Co de Phone Number [facility] [address] [place] [address] [phone] * (ABNORMAL) Lipid Panel, Standard (08/21/2024 9:42 AM EST) Triglycerides 161(H) <150 mg/dL [facility] Comment:Desirable Triglyceri de: less than 150 mg/dLBorderline High Triglyceride 150-199 mg/dLHigh Triglyceride: 200-499 mg/dLVery High Triglyceride: greater than or equal to 5OO mg/dL Cholesterol 195 <200 mg/dL [facility] Comment:Desirable Cholestero l: less than 200 mg/dLBorderline High Cholesterol: 200-239 mg/dLHigh Cholesterol: greater than 239 mg/dL LDL Cholesterol Calculated 118(H) <100 mg/dL [facility] Comment:Desirable LDL: less than 100 mg/dLNear Optimal/Above Optimal LDL: 110- 129 mg/dLBorderline High LDL: 130-159 mg/dLHigh LDL: 160-189 mg/dLVery High LDL: greater than or equal to 190 mg/dL HDL Cholesterol 45 >40 mg/dL [facility] Comment:Desirable HDL: great er than 40 mg/dL Note: This HDL assay may give artificially low results in patients with liver disease. Blood Venous blood specimen / Unknown 08/21/2024 9:42 AM EST 08/21/2024 1:59 PM EST us Yuniel Jalloh MD LAB BLOOD ORDERABL ES Final Result [facility] [address] [place] [phone] * (ABNORMAL) Comprehensive Metabolic Panel (08/21/2024 9:42 AM EST) Sodium 140 135 - 145 mmol/L [facility] Potassium 4.0 3.3 - 5.1 mmol/L [facility] Chloride 110(H) 96 - 108 mmol/L [facility] Carbon Dioxide 26 22 - 29 mmol/L [facility] Anion Gap 8(L) 12 - 20 [facility] Urea Nitrogen (BUN) 19(H) 9 - 16 mg/dL [facility] Creatinine, Serum 0.78 0.5 - 1.4 mg/dL [facility] Estimated Glomerular Filt Rate >60 [facility] Comment:Chronic Kidney Disea se: Estimated GFR < 60 mL/min/1.40g4Dbybos Kidney Disease: Estimated GFR < 15 mL/min/1.73m2 Glucose 78 60 - 115 mg/dL [facility] Calcium 9.1 8.4 - 10.2 mg/dL [facility] Bilirubin, Total 0.3 0.0 - 1.0 mg/dL [facility] Aspartate Amino Transferase 34(H) 5 - 31 U/L [facility] Alanine Aminotransferase 29 0 - 31 U/L [facility] Total Protein 7.3 6.5 - 8.0 g/dL [facility] Albumin Level 4.0 3.5 - 5.0 g/dL [facility] Alkaline Phosphatase 79 39 - 117 U/L [facility] Blood Venous blood specimen / Unknown 08/21/2024 9:42 AM EST 08/21/2024 1:59 PM EST Yuniel Jalloh MD LAB BLOOD ORDERABL ES Final Result [facility] [address] [place] [phone] * XR Ankle 3+ Views Left (07/17/2024 11:23 AM EST) Anatomical Region Laterality Modality Lower Extremities, Ankle Left Radiogr aphic Imaging 07/17/2024 11:2 3 AM EST Narrative 07/19/2024 1:48 PM EST ? [facility] ? [address] ?[place] [address] ?XRay Report ? Signed ? Patient: Ayah Bautista ?MR#: [id number] ?? 29 ? : 1965 ?Acct:[id number] ? Age/Sex: 59 / F ?ADM Date: 01/06/25 ? Loc: HO.HOSX ? Attending Dr: Belle Steve PA-C ? Ordering Physician: Belle Steve PA-C ?? Date of Service: 07/17/24 ?? Procedure(s): XR ankle LT min 3V ?? Accession Number(s): [id number] ? cc: Yuniel Chun MD; Belle Steve [...] ??Pedro Giron MD ??07/19/2024 01:45 PM EST ? Dictated By: ?Pedro Giron MD ? Signed By: ?<Electronically signed by Pedro Giron MD in OV> ?07/19/24 1345 ? DD/ 1123 ? TD/TT: 07/17/24 1125 ? Senior Financial Accountant: ? Procedure Note Brent Cha - 07/19/2024 [facility] [address] [place] [address] [address] [place] [address] XRay Report Signed Patient: Ayah BautistaMR#: [id number] [birth year] : 1965Acct:[id number] Age/Sex: 59 / FADM Date: 07/17/24 Loc: HOSherryHOSX Attending Dr: Belle Steve PA-C Ordering Physician: Belle Steve PA-C Date of Service: 07/17/24 Procedure(s): XR ankle LT min 3V Accession Number(s): [id number] cc: Yuniel Chun MD; Belle Steve PA-C [...] 07/19/24 1345 DD/ 1123 TD/TT: 07/17/24 1125 Senior Financial Accountant: [facility] External Provider IMG XR PROCEDURES Edited Result - Final * BD DEXA Axial (06/27/2024 2:45 PM EST) Anatomical Region Laterality Modality Body Radiographic Mine ging 06/27/2024 2:45 PM EST Narrative 06/28/2024 10:15 AM EST ? [facility] [place] ? [address] ?[place] [address] ? Mammography Report ? Signed ? Patient: Ayah Bautista ?MR#: [id number] ?? [birth year] ? : 1965 ?Acct:[id number] ? Age/Sex: 59 / F ?ADM Date: 12/17/24 ? Loc: HO.MAMMO ? Attending Dr: Yuniel Jalloh MD ? Ordering Physician: Yuniel Chun MD ?Res ?? ults: ? Date of Service: 06/27/24 ?Follow Up: ? Procedure(s): XR DEXA axial skeleton ?? Accession Number(s): [id number] ? cc: Yuniel Chun MD ? EXAMINATION: ?? BONE DENSITOMETRY ? CLINICAL INDICATION: ?? Osteoporosis. ? COMPARISON: ?? This is the patient's baseline examination. ? TECHNIQUE: Using a Interactive Project DXA System (software version: ?? 13.1) manufactured by [employer], dual-energy x-ray absorptiometry ?? was performed of [...] DD/ 1445 ? TD/TT: 06/27/24 1500 ? Senior Financial Accountant: SK ? Procedure Note Brent Cha - 06/28/2024 [facility] [address] [place] [address] Dr. [place], [place] [address] Mammography Report Signed Patient: Ayah BautistaMR#: [id number] [birth year] : 1965Acct:[id number] Age/Sex: 59 / FADM Date: 06/27/24 Loc: HO.MAMMO Attending Dr: Yuniel Jalloh MD Ordering Physician: Yuniel Chun ults: Date of Service: 06/27/24Follow Up: Procedure(s): XR DEXA axial skeleton Accession Number(s): [id number] cc: Yuniel Chun MD EXAMINATION: BONE DENSITOMETRY CLINICAL INDICATION: Osteoporosis. COMPARISON: This is the patient's baseline examination. TECHNIQUE: Using a Interactive Project DXA System (software version: 13.1) manufactured by [employer], dual-energy x-ray absorptiometry was performed of the [...] Farhat Sosa MD 06/28/2024 10:12 AM EST Dictated By: Farhat Sosa MD Signed By: <Electronically signed by Farhat Sosa MD in OV> 06/28/24 1012 DD/ 1445 TD/TT: 06/27/24 1500 Senior Financial Accountant: SK Yuniel Jalloh MD IMG DXA PROCEDURES Edited Result - Final * BI Mammogram Screening Tomosynthesis Bilateral (06/26/2024 3:51 PM EST) Anatomical Region Laterality Modality Breast Bilateral Mammography 06/26/2024 3:51 PM EST Narrative 07/18/2024 10:04 AM EST ? [facility] [place] ? [address] [facility] ?[place] [address] ? Mammography Report ? Signed ? Patient: Ayah Bautista ?MR#: [id number] ?? [birth year] ? : 1965 ?Acct:[id number] ? Age/Sex: 59 / F ?ADM Date: 12/16/24 ? Loc: HO.MAMMO ? Attending : Yuniel Jalloh MD ? Ordering Physician: Yuniel Chun MD ? Results: 0Incomplete: Needs Additional Imaging ?? Evaluation ? Date of Service: 06/26/24 ?Follow Up: Additional Imagi ?? ng ? Procedure(s): MM tomosynthesis screening BI ?? Accession Number(s): [id number] ? cc: Yuniel Chun MD ? EXAMINATION: [...] DD/ 1551 ? TD/TT: 06/26/24 1551 ? Senior Financial Accountant: ? Procedure Note Starla, Image - 07/18/2024 [facility] [address] [place] [address] Mammography Report Signed Patient: Ayah BautistaMR#: [id number] [birth year] : 1965Acct:[id number] Age/Sex: 59 / FADM Date: 06/26/24 Loc: HO.MAMMO Attending Dr: Yuniel Jalloh MD Ordering Physician: Yuniel Chun MD Results: 0Incomplete: Needs Additional Imaging Evaluation Date of Service: 06/26/24Follow Up: Additional Imagi ng Procedure(s): MM tomosynthesis screening BI Accession Number(s): [id number] cc: Yuniel Chun MD EXAMINATION: MM SCREENING [...] by: Cinthia Sutton DO 07/18/2024 10:01 AM [facility] Dictated By: Cinthia Sutton DO Signed By: <Electronically signed by Cinthia Sutton DO in OV> 07/18/24 1001 DD/ 1551 TD/TT: 06/26/24 1551 Senior Financial Accountant: Yuniel Jalloh MD IMG BI PROCEDURES Edited Result - Final from Last [address] [place] [address] C3 Care Teams Syrup Filterer Relationship Specialty Start Date End Date Yuniel Chun MD [address] [place] [phone] PCP - General Internal Medicine 05/11/24
--- OUTSIDE RECORDS SUMMARY | 2024-08-22 10:44 | XMS_ITS | Continuity of Care Document ---
Author Organization [facility] Address [address] [place] [address] Phone Care Team Providers Care Credit Card Specialist Name Role Phone No Information Unavailable Unavailable [...] Location Reason(s) For Visit Diagnoses Date Provider [address] tel:[phone] No Location No Information No Information [place] [address], tel:[phone] [facility] No Information Raffucci Theodore. [address] [place] [address], [facility], . tel:[phone] [place] [address], tel:[phone] [facility] No Information Raffucci Theodore. [address], [place], [facility], . tel:[phone], [facility], [place] tel:[phone] Dental Prakash No Information Raffucci Theodore. [address], [place], [facility], [place]. tel:[phone] [place] [address], [address] [place] [address], [facility], tel:[phone] Dental Prakash No Information Raffucci Theodore. [address], [place], [facility], [place]. tel:[phone] [place] [address], [address] [place] [address], [facility], tel:[phone] Dental Prakash No Information Raffucci Theodore. [address], [facility], . tel:[phone] [place] [address], [address] [place] [address], [facility], tel:[phone] [facility] left flank pain (chief complaint)W orried about BP (chief complaint) MyalgiaScreening for colon cancerScreening mammogram for breast cancerElevated blood pressure readingEncntr for general adult medical exam w/o abnormal findings Florin Hampton. [address] [place], [place], [id number], . tel:[phone] [place] [address], [facility], [place] tel:[phone] [facility] Encounter for dental exam and cleaning w/o abnormal findings Raffucci Theodore. [address], [facility], [place]. tel:[phone] [place] [address], [address] [place] [address], [facility], [place] tel:[phone] [facility] Encounter for dental exam and cleaning w/o abnormal findings Raffucci Theodore. [address], [facility], [place]. tel:[phone] [place] [address] [place] [address], [facility], tel:[phone] [facility] Encounter for dental exam and cleaning w/o abnormal findings Jing Jaimes. [address], [facility], . tel:[phone] [place] [address], [address] [place] [address], [facility], tel:[phone] [facility] Encounter for dental exam and cleaning w/o abnormal findings Jing Jaimes. [address], [facility], . tel:[phone] [place] [address], [address] [place] [address], [facility], tel:[phone] [facility] Encounter for dental exam and cleaning w/o abnormal findings Jing Jaimes. [address], [facility], [place]. tel:[phone] [place] [address], [address] [place] [address], [facility], tel:[phone] [facility] Encounter for dental exam and cleaning w/o abnormal findings Jing Jaimes. [address], [facility], . tel:[phone] [place] [address], [facility], tel:[phone] [facility] Encounter for dental exam and cleaning w/o abnormal findings Kvng Hampton. [address] [place], [place], [id number], [place]. tel:[phone] [place] [address], [facility], tel:[phone] [facility] Encounter for dental exam and cleaning w/o abnormal findings Jing Jaimes. [address], [facility], . tel:[phone] [place] [address], [place], [address], tel:[phone] [facility] Encounter for dental exam and cleaning w/o abnormal findings Jing Jaimes. [address] [place], [address], [place]. tel:[phone] [facility], [address] [place] [address], [address], [place] tel:[phone] [facility] Encounter for dental exam and cleaning w/o abnormal findings Jing Jaimes. [address] [facility] [place], [facility], [place]. tel:[phone] [facility], [address] [place] [address], [facility], [place] tel:[phone] [facility] Encounter for dental exam and cleaning w/o abnormal findings Jing Jaimes. [address], [facility], [place]. tel:[phone] [place] [address], [address] [place] [address], [facility], [place] tel:[phone] [facility] Encounter for dental exam and cleaning w/o abnormal findings Jing Jaimes. [address], [facility], [place]. tel:[phone] [facility], [address] [place] [address], [facility], [place] tel:[phone] [facility] Encounter for dental exam and cleaning w/o abnormal findings Jing Jaimes. [address], [facility], [place]. tel:[phone] [facility], [address] [place] [address], [address], [place] tel:[phone] [facility] Encounter for dental exam and cleaning w/o abnormal findings Jing Jaimes. [address], [facility], [place]. tel:[phone] [facility], [address] [place] [address], [facility], tel:[phone] [facility] [place] Encounter for dental exam and cleaning w/o abnormal findings Bala Gomes. [address], [facility], . [facility], [address] [place] [address], [facility], tel:[phone] [facility] Encounter for dental exam and cleaning w/o abnormal findings Bala Gomes. [address], [facility], . [facility], [address] [place] [address], [facility], tel:[phone] [facility] [place] Encounter for dental exam and cleaning w/o abnormal findings Bala Gomes. [address], [facility], . [address], [facility], tel:[phone] [facility] [place] Encounter for dental exam and cleaning w/o abnormal findings Bala Gomes. [address], [facility], . [address], [facility], tel:[phone] [facility] Adult test result f/u (chief complaint) Age-related osteoporosis without current pathological fractureVitamin D deficiencyBody mass index (BMI) 22.0-22.9, adult Iliana Pena. [address], [place], [place], [facility], . tel:[phone], [facility], tel:[phone] [facility] Adult joint pain (chief complaint) Pain, joint, multiple sitesScreening mammogram, encounter forHealthcare maintenanceBody mass index (BMI) 21.0-21.9, adult Iliana Pena. [address], [place], [facility], . tel:[phone] [facility], [address] [place] [address], [facility], tel:[phone] [facility] Encounter for dental exam and cleaning w/o abnormal findings Bala Gomes. [address] [place], [address], [place]. [facility], [address] [place] [address], [address], tel:[phone] [facility] Encounter for dental exam and cleaning w/o abnormal findings Bala Gomes. [address] [place], [address], [place]. [facility], [address] [place] [address], [facility], tel:[phone] [facility] Encounter for dental exam and cleaning w/o abnormal findings Bala Gomes. [address] [place], [address], [place]. [facility], [address] [place] [address], [facility], tel:[phone] [facility] Encounter for dental exam and cleaning w/o abnormal findings Bala Gomes. [address], [facility], [place]. [facility], [address] [place] [address], [facility], tel:[phone] [facility] Encounter for dental exam and cleaning w/o abnormal findings Bala Gomes. [address] [place], [address], [place]. [facility], [address] [place] [address], [facility], tel:[phone] [facility] Encounter for dental exam and cleaning w/o abnormal findings Bala Gomes. [address] [place], [address], [place]. [address], [facility], tel:[phone] [facility] Encounter for dental exam and cleaning w/o abnormal findings Bala Gomes. [address], [facility], [place]. [facility], [address] [place] [address], [address] [place] [address] tel:[phone] [facility] [place] Encounter for dental exam and cleaning w/o abnormal findings Rafat Nguyen. [address] [place] [address], [facility], . tel:[phone] [place] [address], [address] [place] [address], [facility], tel:[phone] [facility] cold symptoms (chief complaint) Acute non-recurrent maxillary sinusitis Dixon Anny. [address] [facility], [id number] [place], [facility], . tel:[phone] [place] [address], [address] [place] [address], [facility], tel:[phone] [facility] ear ache (chief complaint) Acute non-recurrent maxillary sinusitisAcute mucoid otitis media of right ear Jessica Blanco. [address] [facility], [id number] [place], [facility], . tel:[phone] [place] [address], [address] [place] [address], [facility], tel:[phone] [facility] chest pain and cough (chief complaint) Bronchitis Jessica Sánchez. [address] [place], [place] [address]man Radha., [id number] [place], [facility], . tel:[phone] [place] [address], [facility], tel:[phone] [facility] [place] DENTAL EXAMINATION Jing Jaimes. [address], [facility], . tel:[phone] [place] [address], [address] [place] [address], [facility], tel:[phone] [facility] physical (chief complaint) Annual Adult PhysicalPPD Screen Kim Silva. [address] [place] [address], [id number], [place]. tel:[phone] [facility], [address] [facility], [place], [address], [place] tel:[phone] [facility] , knee pains right (chief complaint) Knee pain, acute Jessica Blanco. [address] [facility], [id number] [place], [address], [place]. tel:[phone] Family History Family Member Type Diagnosis Age At Onset Father Problem (finding) Hepatitis C (Cause Of D eath) Sister Problem (finding) murder (Cause Of ) Son Problem (finding) Sister Problem (finding) Mother Problem (finding) osteoporosis Son Problem (finding) asthma (Cause Of ) Father Problem (finding) Payers Payer name Insurance type Covered libertarian ID Shahriar sagephuc(s) DENTAL [facility] CI [id number] Social History Type Description Quantity Date Captured [...] ordered Referral Referred To: Lissy Orlando MD [address] [place] [address] [id number] [place], [phone] Ordered: Referrals: Gynecology. Lissy Orlando MD. Evaluate and treat Appointment date/timeframe: 6 Months ordered Referral Referred To: [facility] [address] [place], [phone] Ordered: Referrals: Gastroenterology. Evaluate and treat Appointment date/timeframe: 6 Months ordered Future Order: Radiology Order Ma mmogram (Screen); Bilat, 2-view study of each breast, incl computer-aided detection when performed ([id number]), Ordered on: Ordered Future Order: Lab Order CBC w/di ff ([id number]), Ordered on: Ordered Future Order: Lab Order CMP ([id number]), Ordered on: Ordered Future Order: Lab Order Lipid Pa tonny ([id number]), Ordered on: Ordered Future Order: Lab Order Lyme, We miller Blot, Serum ([id number]), Ordered on: Ordered Future Order: Lab Order GENESIS ([id number]), Ordered on: Ordered Future Order: Lab Order Rheumato id Factor ([id number]), Ordered on: Ordered Future Order: Lab Order TSH ([id number]), Ordered on: Ordered Future Order: Lab Order UA w/dejon ro ([id number]), Ordered on: Ordered Future Order: Lab Order Vitamin D, 25-Hydroxy ([id number]), Ordered on: Ordered Future Order: Radiology Order Ma mmogram (Screening); Bilateral ([id number]), Ordered on: Ordered Future Order: Radiology Order Rj ne density study (by DEXA); appendicular skeleton (e.g., radius, wrist, heel) ([id number]), Ordered on: Ordered Future Order: Lab Order CMP ([id number]), Ordered on: Ordered Future Order: Lab Order Lipid Pa tonny ([id number]), Ordered on: Ordered History Of Present Illness [...]
--- OUTSIDE RECORDS SUMMARY | 2024-08-22 10:44 | XMS_ITS | Encounter Summary ---
Author Organization [employer] Address [address] [facility] [address] [place] [address] Care Team Providers Care Home Visit Field Care Manager Name Role Phone Yuniel Chun MD Primary Care Prov ider Encounter Details Date Type Department Care Team (Late st Contact Info) Description 08/01/2024 3:30 PM EST Telemedicine [facility] [address] [place], [place] [phone] Yuniel Chun MD [address] [place] [address] Elevated blood pressure reading (Primary Dx); Dietary [...] documented as of this encounter Care Teams Home Visit Field Care Manager Relationship Specialty Start Date End Date Yuniel Chun MD [address] [place] [id number] PCP - General Internal Medicine 05/11/24 documented as of this encounter
== END 2024-08-22 09:38 | disposition home or self-care (01) ==
LOC: HO.MAMMO 09:37
PROVIDERS: PCP Internal Medicine; Visit Provider Internal Medicine
DX: N64.89 Other specified disorders of breast (principal)
CPT/HCPCS: 76642; 77062; 77066

== ENCOUNTER 2024-09-14 10:54 | Outpatient (REF) | payer MEDICAID, SELFPAY ==
--- NOTE | ~2024-09-14 | XR_ITS ---
EXAMINATION: XR ANKLE, LEFT CLINICAL INFORMATION: M25.579 - Pain in unspecified ankle and joints of unspecified foot COMPARISON: August 15, 2024. TECHNIQUE: AP, lateral, and mortise views of the left ankle. FINDINGS: No callus formation in the fracture of the lateral malleolus nor the lateral process of the talus. Soft tissue edema pattern, lateral malleolus. Distal tibia is intact. The calcaneus is intact. XR/XR ankle LT min 3V IMPRESSION: No healing in the lateral malleolus and lateral process of talus fractures. Electronically signed by: Braxton Bhat MD 09/18/2024 11:55 AM EDT
--- OUTSIDE RECORDS SUMMARY | 2024-09-15 12:30 | XMS_ITS | Encounter Summary ---
Author Organization [employer] Address [address] [facility] [address] [place] [address] Care Team Providers Care Cnp Name Role Phone Yuniel Chun MD Primary Care Prov ider Encounter Details Date Type Department Care Team (Late st Contact Info) Description 08/22/2024 Orders Only [facility] CHC MED & PEDS [address] [place], [place] [phone] Yuniel Chun MD [address] [place] [address] Social History Tobacco Use Types Packs/Day Years [...] EST Narrative 08/22/2024 10:48 AM EST ? [facility] ? [address] ?[place] [address] ? Ultrasound Report ? Signed ? Patient: Ayah Bautista ?MR#: [id number] ?? [birth year] ? : 1965 ?Acct:[id number] ? Age/Sex: 59 / F ?ADM Date: 08/22/24 ? Loc: HO.MAMMO ? Attending Dr: Yuniel Jalloh MD ? Ordering Physician: Yuniel Chun MD ?? Date of Service: 08/22/24 ?? Procedure(s): US breast BI limited mamm only ?? Accession Number(s): [id number] ? cc: Yuniel Chun MD ? EXAMINATION: [...] DD/ 1000 ? TD/TT: 08/22/24 1033 ? Ophthalmic Nurse: ? Procedure Note Donotuseinterpreter, Image - 08/22/2024 [facility] [address] [place] [address] Ultrasound Report Signed Patient: Ayah BautistaMR#: [id number] [birth year] : 1965Acct:[id number] Age/Sex: 59 / FADM Date: 08/22/24 Loc: HO.MAMMO Attending Dr: Yuniel Jalloh MD Ordering Physician: Yuniel Chun MD Date of Service: 08/22/24 Procedure(s): US breast BI limited mamm only Accession Number(s): [id number] cc: Yuniel Chun MD EXAMINATION: MM DIAGNOSTIC [...] 08/22/24 1045 DD/ 1000 TD/TT: 08/22/24 1033 Ophthalmic Nurse: us Yuniel Jalloh MD IMG US PROCEDURES Final Result * BI Mammogram Diagnostic Tomosynthesis added bilateral (08/22/2024 9:48 AM EST) Anatomical Region Laterality Modality Breast Left Mammography 08/22/2024 9:48 AM EST Narrative 08/22/2024 10:48 AM EST ? [facility] ? [address] [facility] ?[place] [address] ? Mammography Report ? Signed ? Patient: Ayah Bautista ?MR#: [id number] ?? [birth year] ? : 1965 ?Acct:[id number] ? Age/Sex: 59 / F ?ADM Date: 02/11/25 ? Loc: HO.MAMMO ? Attending Dr: Yuniel Jalloh MD ? Ordering Physician: Yuniel Chun MD ? Results: 3.6MProbably Benign Finding - Short 6 M ?? F/U Suggested ? Date of Service: 08/22/24 ?Follow Up: 6 Month F/U ? Procedure(s): MM tomosynthesis added view BI ?? Accession Number(s): [id number] ? cc: Yuniel Chun MD ? EXAMINATION: [...] DD/ 0948 ? TD/TT: 08/22/24 1033 ? Ophthalmic Nurse: ? Procedure Note Brent Cha - 08/22/2024 [facility] [address] [place] [address] Dr. [place], [place] [address] Mammography Report Signed Patient: Ayah BautistaMR#: [id number] [birth year] : 1965Acct:[id number] Age/Sex: 59 / FADM Date: 08/22/24 Loc: HO.MAMMO Attending Dr: Yuniel Jalloh MD Ordering Physician: Yuniel Chun MD Results: 3.6MProbably Benign Finding - Short 6 M F/U Suggested Date of Service: 08/22/24Follow Up: 6 Month F/U Procedure(s): MM tomosynthesis added view BI Accession Number(s): [id number] cc: Yuniel Chun MD EXAMINATION: MM DIAGNOSTIC [...] 08/22/24 1045 DD/ 0948 TD/TT: 08/22/24 1033 Ophthalmic Nurse: Yuniel Jalloh MD IMG BI PROCEDURES Final Result documented in this encounter Visit Diagnoses Not on filedocumented in this encounter Additional Health Concerns Assessment Noted Time PHQ-9 Depression Total Score: 6 08/01/19 25 1:58 PM EST documented as of this encounter Care Teams Cnp Relationship Specialty Start Date End Date Yuniel Chun MD [address] [place] [phone] PCP - General Internal Medicine 05/11/24 documented as of this encounter
--- OUTSIDE RECORDS SUMMARY | 2024-09-15 12:30 | XMS_ITS | Clinical Summary ---
Author Organization [employer] Address [address] [place] [address] Care Team Providers Care Horse Breaker Name Role Phone Yuniel Chun MD Primary [...] [facility] [facility] [place] visit on the past year: [...] Department Care Team Description 08/22/2024 Orders Only [facility] [address] [place] [address] Yuniel Chun MD 08/01/2024 3:30 PM EST Telemedicine [facility] [address] [place] [address] Yuniel Chun MD Elevated blood pressure reading (Primary Dx); Dietary counseling; Exercise counseling 08/01/2024 Travel 07/17/2024 Orders Only [facility] External Provider, [facility] 07/14/2024 2:00 PM EST Telemedicine [facility] [address] [place] [address] Aster Smith MD Acute left ankle pain (Primary Dx) 07/14/2024 Travel 07/13/2024 Telephone [facility] [address] [facility] [place] [address] Yuniel Chun MD Nurse Triage 07/06/2024 Telephone [facility] [address] [place] [address] Yuniel Chun MD APPT/ RECALL 06/29/2024 Telephone [facility] [address] [place] [address] Yuniel Chun MD 06/29/2024 Orders Only [facility] [address] [place] [address] Yuniel Chun MD 06/29/2024 Orders Only [facility] [address] [place] [address] Yuniel Chun MD 06/19/2024 3:15 PM EST Office Visit [facility] [address] [place] [address] Yuniel Chun MD Overweight (Primary Dx); Dietary [...] EST Narrative 08/22/2024 10:48 AM EST ? [facility] ? [address] ?[place] [address] ? Ultrasound Report ? Signed ? Patient: Michele,Ayah ?MR#: [id number] ?? 31 ? : 1965 ?Acct:[id number] ? Age/Sex: 59 / F ?ADM Date: 08/22/24 ? Loc: HO.MAMMO ? Attending Dr: Yuniel Jalloh MD ? Ordering Physician: Yuniel Chun MD ?? Date of Service: 08/22/24 ?? Procedure(s): US breast BI limited mamm only ?? Accession Number(s): [id number] ? cc: Yuniel Chun MD ? EXAMINATION: [...] DD/ 1000 ? TD/TT: 08/22/24 1033 ? Electronic Maintenance Supervisor: ? Procedure Note Anjupeyton, Image - 08/22/20[facility] [address] [place] [address] Ultrasound Report Signed Patient: Yesika Bautista#: [id number] [birth year] : 1965Acct:[id number] Age/Sex: 59 / FADM Date: 08/22/24 Loc: HO.MAMMO Attending Dr: Yuniel Jalloh MD Ordering Physician: Yuniel Chun MD Date of Service: 08/22/24 Procedure(s): US breast BI limited mamm only Accession Number(s): [id number] cc: Yuniel Chun MD EXAMINATION: MM DIAGNOSTIC [...] 08/22/24 1045 DD/ 1000 TD/TT: 08/22/24 1033 Electronic Maintenance Supervisor: us Yuniel Jalloh MD IMJimmy US PROCEDURES Final Result * BI Mammogram Diagnostic Tomosynthesis added bilateral (08/22/2024 9:48 AM EST) Anatomical Region Laterality Modality Breast Left Mammography 08/22/2024 9:48 AM EST Narrative 08/22/2024 10:48 AM EST ? [facility] ? [address] ?[place] [address] ? Mammography Report ? Signed ? Patient: Ayah Bautista ?MR#: [id number] ?? 31 ? : 1965 ?Acct:[id number] ? Age/Sex: 59 / F ?ADM Date: 08/22/24 ? Loc: HO.MAMMO ? Attending Dr: Yuniel Jalloh MD ? Ordering Physician: Yuniel Chun MD ? Results: 3.6MProbably Benign Finding - Short 6 M ?? F/U Suggested ? Date of Service: 08/22/24 ?Follow Up: 6 Month F/U ? Procedure(s): MM tomosynthesis added view BI ?? Accession Number(s): [id number] ? cc: Yuniel Chun MD ? EXAMINATION: [...] DD/ 0948 ? TD/TT: 08/22/24 1033 ? Electronic Maintenance Supervisor: ? Procedure Note Donotuseinterpreter, Image - [facility]/22/[facility] [address] [place] [address] Mammography Report Signed Patient: Ayah BautistaMR#: [id number] [birth year] : 1965Acct:[id number] Age/Sex: 59 / FADM Date: 08/22/24 Loc: HO.MAMMO Attending Dr: Yuniel Jalloh MD Ordering Physician: Yuniel Chun MD Results: 3.6MProbably Benign Finding - Short 6 M F/U Suggested Date of Service: 08/22/24Follow Up: 6 Month F/U Procedure(s): MM tomosynthesis added view BI Accession Number(s): [id number] cc: Yuniel Chun MD EXAMINATION: MM DIAGNOSTIC [...] 08/22/24 1045 DD/ 0948 TD/TT: 08/22/24 1033 Electronic Maintenance Supervisor: Yuniel Jalloh MD IMG BI PROCEDURES Final Result * Vitamin B12 (Cobalamin) and Folate Panel, Serum (08/21/2024 9:42 AM EST) Vitamin B12 389 200 - 900 pg/mL [facility] Comment:NORMAL 200-900 PG/M L INDETERMINATE 160-199 PG/ML DEFICIENT < 160 PG/ML Folate 10.8 > or = 4.0 ng/mL [facility] Comment:Reference Values:> o r = 4.0 [...] ORDERABL ES Final Result Performing Organization Address City/[facility]/ZIP Co de Phone Number [facility] [address] [place] [phone] * TSH W/Reflex to FT4 (08/21/2024 9:42 AM EST) TSH reflex Free T4 1.78 0.32 - 4.0 uIU/mL [facility] Blood Venous blood specimen / Unknown 08/21/2024 9:42 AM EST 08/21/2024 1:59 PM EST us Yuniel Jalloh MD LAB BLOOD ORDERABL ES Final Result Performing Organization Address [facility] [[email or web address]] Co de Phone Number [facility] [address] [place] [phone] * (ABNORMAL) CBC auto differential (08/21/2024 9:42 AM EST) Pathologist [facility] White Blood Count 5.6 4.8 - 10.8 X10*3/uL [facility] Red Blood Count 4.22 4.20 - 5.50 X10*6/uL [facility] Hemoglobin 12.9 12.0 - 16.0 g/dl [facility] Hematocrit 40.2 37.0 - 47.0 % [facility] Mean Corpuscular Volume 95.3 80.0 - 98.0 fL [facility] Mean Corpuscular Hemoglobin 30.6 27.0 - 33.0 pg [facility] Mean Corpuscular HGB Conc 32.1 31.0 - 35.0 g/dl [facility] Red Cell Distribution Width 13.2 11.0 - 16.0 % [facility] Platelet Count 342 160 - 400 X10*3/uL [facility] Mean Platelet Volume 10.4 9.4 - 12.3 fL [facility] Neutrophils Percent Auto 48.5 45 - 73 % [facility] Imm Gran Pct Auto 0.7(H) 0.0 - 0.4 % [facility] Lymphocytes Percent Auto 37.2 20 - 40 % [facility] Monocytes Percent Auto 7.9 2 - 11 % [facility] Eosinophils Percent Auto 5.0(H) 0 - 4 % [facility] Basophils Percent Auto 0.7 0 - 2 % [facility] NRBC Pct Auto 0.0 0.0 - 0.2 /100WBC [facility] Neutrophils Absolute Auto 2.7 2.0 - 8.3 x10*3/uL [facility] Imm Gran Abs Auto 0.04(H) 0.00 - 0.03 X10*3/uL [facility] Lymphocytes Absolute Auto 2.1 1.2 - 4.9 X10*3/uL [facility] Monocytes Absolute Auto 0.4 0.1 - 1.2 X10*3/uL [facility] Eosinophils Absolute Auto 0.3 0.0 - 0.4 X10*3/uL [facility] Basophils Absolute Auto 0.0 0.0 - 0.2 X10*3/uL [facility] NRBC Abs Auto 0.000 0.0 - 0.012 X10*3/uL [facility] Blood Venous blood specimen / Unknown 08/21/2024 9:42 AM EST 08/21/2024 1:59 PM EST us Yuniel Jalloh MD LAB BLOOD ORDERABL ES Final Result [facility] [address] [place] [phone] * Hepatitis C Antibody with Reflex to HCV, RNA, Quantitative, Real-Time PCR (08/21/2024 9:42 AM EST) Hepatitis C Antibody Nonreactive Nonreactive [facility] Comment:Antibodies to HCV no t detected; does not exclude early acuteHCV infection. Blood Venous blood specimen / Unknown 08/21/2024 9:42 AM EST 08/21/2024 1:59 PM EST Yuniel Jalloh MD LAB BLOOD ORDERABL ES Final Result Performing Organization Address [facility] de Phone Number [facility] [address] [place] [phone] * Iron And Total Iron Binding Capacity (08/21/2024 9:42 AM EST) Pathologist [facility] Iron 80 30 - 160 mcg/dL [facility] Total Iron Binding Capacity 287 228 - 428 mcg/dL [facility] Percent Iron Saturation 28 15 - 50 % [facility] Unsaturated Iron Binding 207 ug/dL [facility] Blood Venous blood specimen / Unknown 08/21/2024 9:42 AM EST 08/21/2024 1:59 PM EST Yuniel Jalloh MD LAB BLOOD ORDERABL ES Final Result Performing Organization Address [facility] Phone Number [facility] [address] [place] [phone] * HIV-1/2 Antigen and Antibodies, Fourth Generation, with Reflexes (08/21/2024 9:42 AM EST) [facility] HIV AB/AG Nonreactive Nonreactive [facility] Comment:HIV-1 p24 Ag and/or HIV-1/HIV-2 Ab not detected.A test result that is nonreactive does not exclude thepossibility of exposure to or infection with HIV-1 and/orHIV-2. Nonreactive results in this assay for individualswith prior exposure to HIV-1 and/or HIV-2 may be due toantigen and antibody levels that are below the limit ofdetection of this assay.The [employer] HIV Ag/Ab Combo assay result andsupplemental assay results should be interpreted inconjunction with the patient's clinical presentation,history and other laboratory results. If the results areinconsistent with clinical evidence, additional testing issuggested to confirm the result. Blood Venous blood specimen / Unknown 08/21/2024 9:42 AM EST 08/21/2024 1:59 PM EST Yuniel Jalloh MD LAB BLOOD ORDERABL ES Final Result Performing Organization Address [facility] de Phone Number [facility] [address] [place] [phone] * Hemoglobin A1c (08/21/2024 9:42 AM EST) Hemoglobin A1c 5.4 <6.0 % [facility] Comment:Hemoglobin A1C Refer ence Range Adults: 4.8 - 6.0 % Non diabetic: < 6.0 % Goal: < 7.0 %Additional Action Suggested: > 8.0 %Note: Hemoglobin A1c results are invalid for patients with abnormal amounts of HbF. Blood transfusions may impact the HbA1c concentration in the patient sample. Estimated Average Glucose 108 mg/dL [facility] Comment:eAG = Estimated ave rage glucose which is %A1C expressed asaverage glucose, using the formula of the L1D-AvmsqqaFfmqmpp Glucose study (ADAG), Diabetes Care, Vol.31,#8,2007 Blood Venous blood specimen / Unknown 08/21/2024 9:42 AM EST 08/21/2024 1:59 PM EST us Yuniel Jalloh MD LAB BLOOD ORDERABL ES Final Result Performing Organization Address [facility] [[email or web address]] Co de Phone Number [facility] [address] [place] [phone] * (ABNORMAL) Lipid Panel, Standard (08/21/2024 9:42 AM EST) Triglycerides 161(H) <150 mg/dL [facility] Comment:Desirable Triglyceri de: less than 150 mg/dLBorderline High Triglyceride 150-199 mg/dLHigh Triglyceride: 200-499 mg/dLVery High Triglyceride: greater than or equal to 5OO mg/dL Cholesterol 195 <200 mg/dL [facility] Comment:Desirable Cholestero l: less than 200 mg/dLBorderline High Cholesterol: 200-239 mg/dLHigh Cholesterol: greater than 239 mg/dL LDL Cholesterol Calculated 118(H) <100 mg/dL [facility] Comment:Desirable LDL: less than 100 mg/dLNear Optimal/Above Optimal LDL: 110- 129 mg/dLBorderline High LDL: 130-159 mg/dLHigh LDL: 160-189 mg/dLVery High LDL: greater than or equal to 190 mg/dL HDL Cholesterol 45 >40 mg/dL [facility] Comment:Desirable HDL: great er than 40 mg/dL Note: This HDL assay may give artificially low results in patients with liver disease. Blood Venous blood specimen / Unknown 08/21/2024 9:42 AM EST 08/21/2024 1:59 PM EST us Yuniel Jalloh MD LAB BLOOD ORDERABL ES Final Result [facility] [address] [place] [address] [phone] * (ABNORMAL) Comprehensive Metabolic Panel (08/21/2024 9:42 AM EST) Sodium 140 135 - 145 mmol/L [facility] Potassium 4.0 3.3 - 5.1 mmol/L [facility] Chloride 110(H) 96 - 108 mmol/L [facility] Carbon Dioxide 26 22 - 29 mmol/L [facility] Anion Gap 8(L) 12 - 20 [facility] Urea Nitrogen (BUN) 19(H) 9 - 16 mg/dL [facility] Creatinine, Serum 0.78 0.5 - 1.4 mg/dL [facility] Estimated Glomerular Filt Rate >60 [facility] Comment:Chronic Kidney Disea se: Estimated GFR < 60 mL/min/1.41j1Gxgfbs Kidney Disease: Estimated GFR < 15 mL/min/1.73m2 Glucose 78 60 - 115 mg/dL [facility] Calcium 9.1 8.4 - 10.2 mg/dL [facility] Bilirubin, Total 0.3 0.0 - 1.0 mg/dL [facility] Aspartate Amino Transferase 34(H) 5 - 31 U/L [facility] Alanine Aminotransferase 29 0 - 31 U/L [facility] Total Protein 7.3 6.5 - 8.0 g/dL [facility] Albumin Level 4.0 3.5 - 5.0 g/dL [facility] Alkaline Phosphatase 79 39 - 117 U/L [facility] Blood Venous blood specimen / Unknown 08/21/2024 9:42 AM EST 08/21/2024 1:59 PM EST Yuniel Jalloh MD LAB BLOOD ORDERABL ES Final Result [facility] [address] [place] [phone] * XR Ankle 3+ Views Left (07/17/2024 11:23 AM EST) Anatomical Region Laterality Modality Lower Extremities, Ankle Left Radiogr aphic Imaging 07/17/2024 11:2 3 AM EST Narrative 07/19/2024 1:48 PM EST ? [facility] ? [address] ?[place] [address] ?XRay Report ? Signed ? Patient: Ayah Bautista ?MR#: [id number] ?? 31 ? : 1965 ?Acct:[id number] ? Age/Sex: 59 / F ?ADM Date: 07/17/24 ? Loc: HO.HOSX ? Attending Dr: Belle Steve PA-C ? Ordering Physician: Belle Steve PA-C ?? Date of Service: 07/17/24 ?? Procedure(s): XR ankle LT min 3V ?? Accession Number(s): [id number] ? cc: Yuniel Chun MD; Belle Steve [...] DD/ 1123 ? TD/TT: 07/17/24 1125 ? Electronic Maintenance Supervisor: ? Procedure Note Donjosephter, Image - 07/19/2024 [facility] [address] [place] [address] [address] [place] [address] XRay Report Signed Patient: Ayah BautistaMR#: [id number] [birth year] : 1965Acct:[id number] Age/Sex: 59 / FADM Date: 07/17/24 Loc: CONNIE Attending Dr: Belle Steve PA-C Ordering Physician: Belle Steve PA-C Date of Service: 07/17/24 Procedure(s): XR ankle LT min 3V Accession Number(s): [id number] cc: Yuniel Chun MD; Belle Steve PA-C [...] 07/19/24 1345 DD/ 1123 TD/TT: 07/17/24 1125 Electronic Maintenance Supervisor: [facility] External Provider IMG XR PROCEDURES Edited Result - Final * BD DEXA Axial (06/27/2024 2:45 PM EST) Anatomical Region Laterality Modality Body Radiographic Mine ging 06/27/2024 2:45 PM EST Narrative 06/28/2024 10:15 AM EST ? [facility] ? [address] ?[place] [address] ? Mammography Report ? Signed ? Patient: Ayah Bautista ?MR#: [id number] ?? 31 ? : 1965 ?Acct:[id number] ? Age/Sex: 59 / F ?ADM Date: 12/17/24 ? Loc: HO.MAMMO ? Attending Dr: Yuniel Jalloh MD ? Ordering Physician: Yuniel Chun MD ?Res ?? ults: ? Date of Service: 12/17/24 ?Follow Up: ? Procedure(s): XR DEXA axial skeleton ?? Accession Number(s): [id number] ? cc: Yuniel Chun MD ? EXAMINATION: ?? BONE DENSITOMETRY ? CLINICAL INDICATION: ?? Osteoporosis. ? COMPARISON: ?? This is the patient's baseline examination. ? TECHNIQUE: Using a [employer] DXA System (software version: ?? 13.1) manufactured by [employer], dual-energy x-ray absorptiometry ?? was performed of [...] DD/ 1445 ? TD/TT: 06/27/24 1500 ? Electronic Maintenance Supervisor: SK ? Procedure Note Starla, Image - 06/28/2024 [facility] [address] [place] [address] Mammography Report Signed Patient: Ayah BautistaMR#: [id number] [birth year] : 1965Acct:[id number] Age/Sex: 59 / FADM Date: 06/27/24 Loc: HO.MAMMO Attending Dr: Yuniel Jalloh MD Ordering Physician: Yuniel Chun ults: Date of Service: 06/27/24Follow Up: Procedure(s): XR DEXA axial skeleton Accession Number(s): [id number] cc: Yuniel Chun MD EXAMINATION: BONE DENSITOMETRY CLINICAL INDICATION: Osteoporosis. COMPARISON: This is the patient's baseline examination. TECHNIQUE: Using a [employer] DXA System (software version: 13.1) manufactured by [employer], dual-energy x-ray absorptiometry was performed of the [...] 06/28/24 1012 DD/ 1445 TD/TT: 06/27/24 1500 Electronic Maintenance Supervisor: FABIOLA us Yuniel Jalloh MD IMG DXA PROCEDURES Edited Result - Final * BI Mammogram Screening Tomosynthesis Bilateral (06/26/2024 3:51 PM EST) Anatomical Region Laterality Modality Breast Bilateral Mammography 06/26/2024 3:51 PM EST Narrative 07/18/2024 10:04 AM EST ? [facility] ? [address] ?[place] [address] ? Mammography Report ? Signed ? Patient: Ayah Bautista ?MR#: [id number] ?? [birth year] ? : 1965 ?Acct:[id number] ? Age/Sex: 59 / F ?ADM Date: 12/16/24 ? Loc: HO.MAMMO ? Attending Dr: Yuniel Jalloh MD ? Ordering Physician: Yuniel Chun MD ? Results: 0Incomplete: Needs Additional Imaging ?? Evaluation ? Date of Service: 06/26/24 ?Follow Up: Additional Imagi ?? ng ? Procedure(s): MM tomosynthesis screening BI ?? Accession Number(s): [id number] ? cc: Yuniel Chun MD ? EXAMINATION: [...] DD/ 1551 ? TD/TT: 06/26/24 1551 ? Electronic Maintenance Supervisor: ? Procedure Note Donotcarmeninterpreter, Image - 07/18/2024 [facility] [address] [place], [place] [address] Mammography Report Signed Patient: Ayah BautistaMR#: [id number] [birth year] : 1965Acct:[id number] Age/Sex: 59 / FADM Date: 06/26/24 Loc: HO.MAMMO Attending Dr: Yuniel Jalloh MD Ordering Physician: Yuniel Chun MD Results: 0Incomplete: Needs Additional Imaging Evaluation Date of Service: 06/26/24Follow Up: Additional Imagi ng Procedure(s): MM tomosynthesis screening BI Accession Number(s): [id number] cc: Yuniel Chun MD EXAMINATION: MM SCREENING [...] 07/18/24 1001 DD/ 1551 TD/TT: 06/26/24 1551 Electronic Maintenance Supervisor: Yuniel Jalloh MD IMG BI PROCEDURES Edited Result - Final from Last [address] [place], [place] [phone] C[employer] Care Teams Horse Breaker Relationship Specialty Start Date End Date Yuniel Chun MD [address] [place] [phone] PCP - General Internal Medicine 05/11/24
--- OUTSIDE RECORDS SUMMARY | 2024-09-15 12:30 | XMS_ITS | Continuity of Care Document ---
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 [address] [place] [address], [facility], . tel:[phone] [place] [address], tel:[phone] [facility] No Information Raffucci Theodore. [address] [place], [place], [facility], . tel:[phone], [facility], [place] tel:[phone] Dental Prakash No Information Raffucci Theodore. [address] [place], [place], [facility], [place]. tel:[phone] [place] [address], [address] [place] [address], [facility], tel:[phone] Dental Prakash No Information Raffucci Theodore. [address] [place], [place], [facility], [place]. tel:[phone] [place] [address], [address] [place] [address], [facility], tel:[phone] Dental Prakash No Information Raffucci Theodore. [address] [place], [facility], . tel:[phone] [place] [address], [address] [place] [address], [facility], tel:[phone] [facility] left flank pain (chief complaint)W orried about BP (chief complaint) MyalgiaScreening for colon cancerScreening mammogram for breast cancerElevated blood pressure readingEncntr for general adult medical exam w/o abnormal findings Florin Hampton. [address] [place], [id number], . tel:[phone] [place] [address], [facility], [place] tel:[phone] [facility] Encounter for dental exam and cleaning w/o abnormal findings Raffucci Theodore. [address] [place], [facility], [place]. tel:[phone] [place] [address], [address] [place] [address], [facility], [place] tel:[phone] [facility] Encounter for dental exam and cleaning w/o abnormal findings Raffucci Theodore. [address] [place], [facility], [place]. tel:[phone] [place] [address] [place] [address], [facility], tel:[phone] [facility] Encounter for dental exam and cleaning w/o abnormal findings Jing Jaimes. [address] [place], [facility], . tel:[phone] [place] [address], [address] [place] [address], [facility], tel:[phone] [facility] Encounter for dental exam and cleaning w/o abnormal findings Jing Jaimes. [address] [place], [facility], . tel:[phone] [place] [address], [address] [place] [address], [facility], tel:[phone] [facility] Encounter for dental exam and cleaning w/o abnormal findings Jing Jaimes. [address] [place], [facility], [place]. tel:[phone] [place] [address], [address] [place] [address], [facility], tel:[phone] [facility] Encounter for dental exam and cleaning w/o abnormal findings Jing Jaimes. [address] [place], [facility], . tel:[phone] [place] [address], [facility], tel:[phone] [facility] Encounter for dental exam and cleaning w/o abnormal findings Kvng Hampton. [address] [place], [place], [id number], [place]. tel:[phone] [place] [address], [facility], tel:[phone] [facility] Encounter for dental exam and cleaning w/o abnormal findings Jing Jaimes. [address] [place], [facility], . tel:[phone] [place] [address], [place], [address], tel:[phone] [facility] Encounter for dental exam and cleaning w/o abnormal findings Jing Jaimes. [address] [place], [address], [place]. tel:[phone] [facility], [address] [place] [address], [address], [place] tel:[phone] [facility] Encounter for dental exam and cleaning w/o abnormal findings Jing Jaimes. [address] [facility] [place], [facility], [place]. tel:[phone] [facility], [address] [place] [address], [facility], [place] tel:[phone] [facility] Encounter for dental exam and cleaning w/o abnormal findings Jing Jaimes. [address] [place], [facility], [place]. tel:[phone] [place] [address], [address] [place] [address], [facility], [place] tel:[phone] [facility] Encounter for dental exam and cleaning w/o abnormal findings Jing Jaimes. [address] [place], [facility], [place]. tel:[phone] [facility], [address] [place] [address], [facility], [place] tel:[phone] [facility] Encounter for dental exam and cleaning w/o abnormal findings Jing Jaimes. [address] [place], [facility], [place]. tel:[phone] [facility], [address] [place] [address], [address], [place] tel:[phone] [facility] Encounter for dental exam and cleaning w/o abnormal findings Jing Jaimes. [address] [place], [facility], [place]. tel:[phone] [facility], [address] [place] [address], [facility], tel:[phone] [facility] Encounter for dental exam and cleaning w/o abnormal findings Bala Gomes. [address] [place], [facility], . [facility], [address] [place] [address], [facility], tel:[phone] [facility] Encounter for dental exam and cleaning w/o abnormal findings Bala Gomes. [address] [place], [facility], . [facility], [address] [place] [address], [facility], tel:[phone] [facility] [place] Encounter for dental exam and cleaning w/o abnormal findings Bala Gomes. [address] [place], [facility], . [address], [facility], tel:[phone] [facility] [place] Encounter for dental exam and cleaning w/o abnormal findings Bala Gomes. [address] [place], [facility], . [address], [facility], tel:[phone] [facility] Adult test result f/u (chief complaint) Age-related osteoporosis without current pathological fractureVitamin D deficiencyBody mass index (BMI) 22.0-22.9, adult Iliana Pena. [address], [place], [place], [facility], . tel:[phone], [facility], tel:[phone] [facility] Adult joint pain (chief complaint) Pain, joint, multiple sitesScreening mammogram, encounter forHealthcare maintenanceBody mass index (BMI) 21.0-21.9, adult Iliana Pena. [address], [place], [facility], . tel:[phone] [facility], [address] [place] [address], [facility], tel:[phone] [facility] Encounter for dental exam and cleaning w/o abnormal findings Bala Gomes. [address] [place], [address], [place]. [facility], [address] [place] [address], [address], tel:[phone] [facility] Encounter for dental exam and cleaning w/o abnormal findings Bala Gomes. [address] [place], [address], [place]. [facility], [address] [place] [address], [facility], tel:[phone] [facility] Encounter for dental exam and cleaning w/o abnormal findings Bala Gomes. [address] [place], [address], [place]. [facility], [address] [place] [address], [facility], tel:[phone] [facility] Encounter for dental exam and cleaning w/o abnormal findings Bala Gomes. [address] [place], [facility], [place]. [facility], [address] [place] [address], [facility], tel:[phone] [facility] Encounter for dental exam and cleaning w/o abnormal findings Bala Gomes. [address] [place], [address], [place]. [facility], [address] [place] [address], [facility], tel:[phone] [facility] Encounter for dental exam and cleaning w/o abnormal findings Bala Gomes. [address] [place], [address], [place]. [address], [facility], tel:[phone] [facility] Encounter for dental exam and cleaning w/o abnormal findings Bala Gomes. [address] [place], [facility], [place]. [facility], [address] [place] [address], [address] [place] [address] tel:[phone] [facility] Encounter for dental exam and cleaning w/o abnormal findings Rafat Nguyen. [address] [place] [address], [facility], . tel:[phone] [place] [address], [address] [place] [address], [facility], tel:[phone] [facility] cold symptoms (chief complaint) Acute non-recurrent maxillary sinusitis Dixon Anny. [address] [facility], [id number] [place], [place], [facility], . tel:[phone] [place] [address], [address] [place] [address], [facility], tel:[phone] [facility] ear ache (chief complaint) Acute non-recurrent maxillary sinusitisAcute mucoid otitis media of right ear Jessica Blanco. [address] [facility], [id number] [place], [place], [facility], . tel:[phone] [place] [address], [address] [place] [address], [facility], tel:[phone] [facility] chest pain and cough (chief complaint) Bronchitis Jessica Sánchez. [address] [place], [place] [address]man Radha., [id number] [place], [place], [facility], . tel:[phone] [place] [address], [facility], tel:[phone] [facility] [place] DENTAL EXAMINATION Jing Jaimes. [address] [place], [facility], . tel:[phone] [address] [place] [address], [address] [place] [address], [facility], tel:[phone] [place] [facility] physical (chief complaint) Annual Adult PhysicalPPD Screen Kim Silva. [address] [place] [address], [id number], [place]. tel:[phone] [facility], [address] [facility], [place], [address], [place] tel:[phone] [facility] , knee pains right (chief complaint) Knee pain, acute Jessica Blanco. [address] [facility], [id number] [place], [address], [place]. tel:[phone] Family History Family Member Type Diagnosis Age At Onset Father Problem (finding) Hepatitis C (Cause Of D eath) Sister Problem (finding) murder (Cause Of ) Son Problem (finding) Sister Problem (finding) Mother Problem (finding) osteoporosis Son Problem (finding) asthma (Cause Of ) Father Problem (finding) Payers Payer name Insurance type Covered constitution party ID Shahriar sagephuc(s) DENTAL [facility] CI [id number] Social History Type Description Quantity Date Captured [...] to Healthcare maintenance) ordered Referral Referred To: [facility] [address] [place], [address] [phone] Ordered: Referrals: Gastroenterology. Evaluate and treat Appointment date/timeframe: 6 Months ordered Referral Referred To: Lissy Orlando MD [address] [facility] [id number] [place], [address] [phone] Ordered: Referrals: Gynecology. Lissy Orlando MD. Evaluate and treat Appointment date/timeframe: 6 Months ordered Future Order: Radiology Order Ma mmogram (Screen); Bilat, 2-view study of each breast, incl computer-aided detection when performed ([id number]), Ordered on: Ordered Future Order: Lab Order CBC w/di ff ([id number]), Ordered on: Ordered Future Order: Lab Order CMP ([id number]), Ordered on: Ordered Future Order: Lab Order Lipid Pa tonny ([id number]), Ordered on: Ordered Future Order: Lab Order Lyme, We miller Blot, Serum ([id number]), Ordered on: Ordered Future Order: Lab Order GENESIS ([id number]), Ordered on: Ordered Future Order: Lab Order Rheumato id Factor ([id number]), Ordered on: Ordered Future Order: Lab Order TSH ([id number]), Ordered on: Ordered Future Order: Lab Order UA w/dejon ro ([id number]), Ordered on: Ordered Future Order: Lab Order Vitamin D, 25-Hydroxy ([id number]), Ordered on: Ordered Future Order: Radiology Order Ma mmogram (Screening); Bilateral ([id number]), Ordered on: Ordered Future Order: Radiology Order Rj ne density study (by DEXA); appendicular skeleton (e.g., radius, wrist, heel) ([id number]), Ordered on: Ordered Future Order: Lab Order CMP ([id number]), Ordered on: Ordered Future Order: Lab Order Lipid Pa tonny ([id number]), Ordered on: Ordered History Of Present Illness [...]
== END 2024-09-14 10:55 | disposition home or self-care (01) ==
LOC: HO.HOSX 10:54
PROVIDERS: Visit Provider Physician Assistant
DX: M25.572 Pain in left ankle and joints of left foot (principal); S82.892A Other fracture of left lower leg, initial encounter for closed fracture
CPT/HCPCS: 73610; 99212

== ENCOUNTER 2024-09-14 14:54 | Outpatient (AMB) | payer MEDICAID, SELFPAY ==
--- NOTE | 2024-09-14 15:02 | A.OFFVIS_ITS ---
Intake Visit Reasons: OV - left ankle fx, DOI 07/10/24 Intake Note: Ayah is a 59 year old female who presents today with tall walking boot and with her son for a follow up of her left ankle fx, DOI 07/11/24. Patient reports she is feeling a lot better today. Allergies No Known Allergies Allergy (Verified 09/14/24 15:05) [facility] HPI OV - left ankle fx, DOI 07/10/24: Details: Ms. Bautista is a 59-year-old female who presents the office today for routine follow-up status post left ankle distal fibular fracture. Date of injury was 07/10/2024. She presents the office today without the walking boot and reports that her pain is drastically improved. She has returned back to work and normal activities. Occasionally she does have some swelling. [facility] Social History Alcohol intake: current Alcohol intake frequency: holidays/special occasions only Patient Tobacco Use Status: Never used Tobacco Current occupational status: employed Current occupation: production control assistant men's soccer coach Review of Systems Const All systems reviewed & are unremarkable except as noted in HPI and below Physical Exam Const General: cooperative, healthy appearing and no acute distress Resp Effort & Inspection: normal respiratory effort and able to speak in complete sentences Cardio Rate: regular rate Peripheral pulses: Peripheral pulses 2+ throughout Skin Lesions: no lesions Rashes: no rashes Extrem Other: Left ankle: Mild lateral malleolar edema. No tenderness to palpation of the lateral malleolus. Patient is able to demonstrate dorsiflexion, plantar flexion, pronation and supination. Negative anterior drawer. Sensation intact. Pedal Pulse intact. Assessment & Plan Assessment & Plan (1) Closed left ankle fracture: Code(s): S82.892A - Other fracture of left lower leg, initial encounter for closed fracture Category: Medical Plan Ms. Bautista is a 59-year-old female who presents the office today for routine follow-up status post left ankle distal fibular fracture. Date of injury was 07/10/2024. She presents the office today without the walking boot and reports that her pain is drastically improved. She has returned back to work and normal activities. Occasionally she does have some swelling. While the office today, we we discussed resuming back to normal activities as tolerated. The patient is no longer wearing her walking boot and has completed physical therapy. She will follow up with Orthopedics p.r.n., sooner if needed. X-rays of the left ankle which were obtained while in the office today and were reviewed by me, Belle Steve PA-C, revealed routine healing left distal fibular fracture. Orders: Orders XR ankle LT min 3V Today M25.579 - Pain in unspecified ankle and joints of unspecified foot Coding Level of Care Code Est Pt Level 3 (40127) Diagnoses Closed left ankle fracture S82.892A
--- OUTSIDE RECORDS SUMMARY | 2024-09-14 18:24 | XMS_ITS | Clinical Summary ---
Author Organization [employer] Address [address] [facility] [address] [place] [address] Care Team Providers Care City Marshal Name Role Phone Yuniel Chun MD Primary Care Prov ider Allergies No known active allergies Medications Blood Pressure kit 1 kit Once per day. 1 kit 06/23/2024 Active alendronate (Fosamax) 70 MG tablet Take 1 tablet (70 mg) by mouth every 7 (seven) days. Take in the morning with a full glass of water, on an empty stomach, and do not take anything else by mouth or lie down for the next 30 min. 4 tablet 11 06/29/2024 06/29/20 25 Active Calcium Carbonate-Vit D-Min (Caltrate 600+D Plus Minerals) 600-800 MG-UNIT chewable tablet Chew 1 tablet 2 times daily. 60 tablet 11 06/29/2024 Active acetaminophen (Tylenol Extra Strength) 500 MG tablet Take 2 tablets (1,000 mg) by mouth every 8 (eight) hours if needed for mild pain. 30 tablet 07/14/2024 Active Active Problems Problem Noted Date Diagnosed Date [...] pcp follow up 2 [place] Hospitalizations:- Er visit on the past year: [...] Encounters Date Type Department Care Team Description 08/22/2024 Orders Only [facility] [address] [place] [address] Yuniel Chun MD 08/01/2024 3:30 PM EST Telemedicine [facility] [address] [place] [address] Yuniel Chun MD Elevated blood pressure reading (Primary Dx); Dietary counseling; Exercise counseling 08/01/2024 Travel 07/17/2024 Orders Only [facility] External Provider, [facility] 07/14/2024 2:00 PM EST Telemedicine [facility] [address] [place] [address] Aster Smith MD Acute left ankle pain (Primary Dx) 07/14/2024 Travel 07/13/2024 Telephone [facility] [address] [facility] [place] [address] Yuniel Chun MD Nurse Triage 07/06/2024 Telephone [facility] [address] [place] [address] Yuniel Chun MD APPT/ RECALL 06/29/2024 Telephone [facility] [address] [place] [address] Yuniel Chun MD 06/29/2024 Orders Only [facility] [address] [place] [address] Yuniel Chun MD 06/29/2024 Orders Only [facility] [address] [place] [address] Yuniel Chun MD 06/19/2024 3:15 PM EST Office Visit [facility] [address] [place] [address] Yuniel Chun MD Overweight (Primary Dx); Dietary counseling; Exercise counseling; Elevated blood pressure reading; Normal physical examination 06/19/2024 Travel from Last 3 Months Family History Medical [...] 08/01/2024 Depression Screening 08/01/2025 08/01/2024, 08/01/2024 Mammogram 08/22/2026 08/22/2024, 06/26/2024 RSV Patients and Patients Aged 60 [...] Procedure Name Priority Date/Time Associated Diagnosis Comments BI US BREAST LIMITED BILATERAL Routine 08/22/2024 10:00 AM EST BI MAMMOGRAM DIAGNOSTIC TOMOSYNTHESIS ADDED VIEW BILATERAL Routine 08/22/2024 9:48 AM EST HEPATITIS C AB W/REFL TO HCV RNA, QN, PCR Routine 08/21/2024 9:42 AM EST Overweight HIV 1/2 ANTIGEN/ANTIBODY, FOURTH GENERATION W/RFL Routine 08/21/2024 9:42 AM EST Overweight VITAMIN B12/FOLATE, SERUM PANEL Routine 08/21/2024 9:42 AM EST Overweight IRON AND TOTAL IRON BINDING CAPACITY Routine 08/21/2024 9:42 AM EST Overweight HEMOGLOBIN A1C Routine 08/21/2024 9:42 AM EST Overweight TSH W/REFLEX TO FT4 Routine 08/21/2024 9:42 AM EST Overweight LIPID PANEL, STANDARD Routine [...] breast from Last 3 Months Results * BI US Breast Limited Bilateral (08/22/2024 10:00 AM EST) Anatomical Region Laterality Modality Breast Bilateral Ultrasound 08/22/2024 10:0 0 AM EST Narrative 08/22/2024 10:48 AM EST ? [facility] ? [address] ?[place] [address] ? Ultrasound Report ? Signed ? Patient: Michele,Ayah ?MR#: [id number] ?? 29 ? : 1965 ?Acct:[id number] ? Age/Sex: 59 / F ?ADM Date: 08/22/24 ? Loc: HO.MAMMO ? Attending Dr: Yuniel Jalloh MD ? Ordering Physician: Yuniel Chun MD ?? Date of Service: 08/22/24 ?? Procedure(s): US breast BI limited mamm only ?? Accession Number(s): [id number] ? cc: Yuniel Chun MD ? EXAMINATION: ?? MM DIAGNOSTIC DIGITAL BREAST TOMOSYNTHESIS, BILATERAL ?? Bilateral Limited ultrasound. ? CLINICAL INFORMATION: ? Call back back from screening for bilateral asymmetries. ? COMPARISON: ?? Mammography: Comparison is made with relevant prior exams. ? TECHNIQUE: ?? Digital breast mammography with tomosynthesis is performed in both the ?? craniocaudal and mediolateral oblique views along with computer-aided ?? detection (CAD). ?? Bilateral Limited ultrasound. ? FINDINGS: ?? The breasts are heterogeneously dense, which may obscure small masses ?? (ACR BI-RADS breast composition Category c). ?? Left: ?? Asymmetry in the lateral left breast posterior depth on CC view ?? partially effaces on additional imaging projections. ?? No suspicious other abnormal findings or calcifications. ? Targeted color Doppler ultrasound scanning in the lateral breast from ?? 1-5 o'clock demonstrates normal fibroglandular breast tissue. ? Right: ?? Circumscribed oval mass measuring 9 mm in the upper outer breast ?? posterior depth persist on additional imaging projections. ?? No suspicious calcifications or other abnormal findings. ? Targeted color Doppler ultrasound scanning in the upper outer breast ?? demonstrates at 9:00 8 cm from the nipple a hypoechoic oval solid mass ?? versus complicated cyst measuring 8 x 8 x 5 mm this is a probable ?? correlate for the 9 mm oval mass on mammography in the upper outer ?? breast. ? There is a hypoechoic oval solid mass versus complicated cyst at 8:00 8 ?? cm from nipple measuring 5 x 4 x 4 mm. ? Results are provided to the patient at time of visit by the ?? technologist. ? US/US breast BI limited mamm only ?? IMPRESSION: ?? Left: Asymmetry lateral left breast on CC view without sonographic ?? correlate. Recommend 6 month follow-up for further evaluation of ?? stability. ? Right: ?? Complicated cysts versus solid masses at 8:00 and 9:00 on ultrasound. ?? Recommend 6 month follow-up ultrasound for further evaluation of ?? stability. ? ASSESSMENT: ? BI-RADS BI-RADS 3 - Probably benign finding(s) - 6 month follow-up ?? suggested ? RECOMMENDATION: ?? 6 Month F/U ? This patient's information was entered into a reminder system with a ?? target due date for their next mammogram. ? Electronically signed by: ??Cinthia Sutton DO ??08/22/2024 10:45 AM EST ? Dictated By: ?Cinthia Sutton DO ? Signed By: ?<Electronically signed by Cinthia Sutton, DO in OV> ? 08/22/24 1045 ? DD/ 1000 ? TD/TT: 08/22/24 1033 ? Asset Accountant: ? Procedure Note [place], Image - 08/22/2024 [facility] [address] [place] [address] Ultrasound Report Signed Patient: Yesika Bautista#: [id number] [birth year] : 1965Acct:[id number] Age/Sex: 59 / FADM Date: 08/22/24 Loc: HO.MAMMO Attending Dr: Yuniel Jalloh MD Ordering Physician: Yuniel Chun MD Date of Service: 08/22/24 Procedure(s): US breast BI limited mamm only Accession Number(s): [id number] cc: Yuniel Chun MD EXAMINATION: MM DIAGNOSTIC DIGITAL BREAST TOMOSYNTHESIS, BILATERAL Bilateral Limited ultrasound. CLINICAL INFORMATION: Call back back from screening for bilateral asymmetries. COMPARISON: Mammography: Comparison is made with relevant prior exams. TECHNIQUE: Digital breast mammography with tomosynthesis is performed in both the craniocaudal and mediolateral oblique views along with computer-aided detection (CAD). Bilateral Limited ultrasound. FINDINGS: The breasts are heterogeneously dense, which may obscure small masses (ACR BI-RADS breast composition Category c). Left: Asymmetry in the lateral left breast posterior depth on CC view partially effaces on additional imaging projections. No suspicious other abnormal findings or calcifications. Targeted color Doppler ultrasound scanning in the lateral breast from 1-5 o'clock demonstrates normal fibroglandular breast tissue. Right: Circumscribed oval mass measuring 9 mm in the upper outer breast posterior depth persist on additional imaging projections. No suspicious calcifications or other abnormal findings. Targeted color Doppler ultrasound scanning in the upper outer breast demonstrates at 9:00 8 cm from the nipple a hypoechoic oval solid mass versus complicated cyst measuring 8 x 8 x 5 mm this is a probable correlate for the 9 mm oval mass on mammography in the upper outer breast. There is a hypoechoic oval solid mass versus complicated cyst at 8:00 8 cm from nipple measuring 5 x 4 x 4 mm. Results are provided to the patient at time of visit by the technologist. US/US breast BI limited mamm only IMPRESSION: Left: Asymmetry lateral left breast on CC view without sonographic correlate. Recommend 6 month follow-up for further evaluation of stability. Right: Complicated cysts versus solid masses at 8:00 and 9:00 on ultrasound. Recommend 6 month follow-up ultrasound for further evaluation of stability. ASSESSMENT: BI-RADS BI-RADS 3 - Probably benign finding(s) - 6 month follow-up suggested RECOMMENDATION: 6 Month F/U This patient's information was entered into a reminder system with a target due date for their next mammogram. Electronically signed by: Cinthia Sutton DO 08/22/2024 10:45 AM EST Dictated By: Cinthia Sutton DO Signed By: <Electronically signed by Cinthia Sutton DO in OV> 08/22/24 1045 DD/ 1000 TD/TT: 08/22/24 1033 Asset Accountant: us Yuniel Jalloh MD IMJimmy US PROCEDURES Final Result * BI Mammogram Diagnostic Tomosynthesis added bilateral (08/22/2024 9:48 AM EST) Anatomical Region Laterality Modality Breast Left Mammography 08/22/2024 9:48 AM EST Narrative 08/22/2024 10:48 AM EST ? [facility] ? [address] ?[place] [address] ? Mammography Report ? Signed ? Patient: Ayah Bautista ?MR#: [id number] ?? 29 ? : 1965 ?Acct:[id number] ? Age/Sex: 59 / F ?ADM Date: 08/22/24 ? Loc: HO.MAMMO ? Attending Dr: Yuniel Jalloh MD ? Ordering Physician: Yuniel Chun MD ? Results: 3.6MProbably Benign Finding - Short 6 M ?? F/U Suggested ? Date of Service: 08/22/24 ?Follow Up: 6 Month F/U ? Procedure(s): MM tomosynthesis added view BI ?? Accession Number(s): [id number] ? cc: Yuniel Chun MD ? EXAMINATION: ?? MM DIAGNOSTIC DIGITAL BREAST TOMOSYNTHESIS, BILATERAL ?? Bilateral Limited ultrasound. ? CLINICAL INFORMATION: ? Call back back from screening for bilateral asymmetries. ? COMPARISON: ?? Mammography: Comparison is made with relevant prior exams. ? TECHNIQUE: ?? Digital breast mammography with tomosynthesis is performed in both the ?? craniocaudal and mediolateral oblique views along with computer-aided ?? detection (CAD). ?? Bilateral Limited ultrasound. ? FINDINGS: ?? The breasts are heterogeneously dense, which may obscure small masses ?? (ACR BI-RADS breast composition Category c). ?? Left: ?? Asymmetry in the lateral left breast posterior depth on CC view ?? partially effaces on additional imaging projections. ?? No suspicious other abnormal findings or calcifications. ? Targeted color Doppler ultrasound scanning in the lateral breast from ?? 1-5 o'clock demonstrates normal fibroglandular breast tissue. ? Right: ?? Circumscribed oval mass measuring 9 mm in the upper outer breast ?? posterior depth persist on additional imaging projections. ?? No suspicious calcifications or other abnormal findings. ? Targeted color Doppler ultrasound scanning in the upper outer breast ?? demonstrates at 9:00 8 cm from the nipple a hypoechoic oval solid mass ?? versus complicated cyst measuring 8 x 8 x 5 mm this is a probable ?? correlate for the 9 mm oval mass on mammography in the upper outer ?? breast. ? There is a hypoechoic oval solid mass versus complicated cyst at 8:00 8 ?? cm from nipple measuring 5 x 4 x 4 mm. ? Results are provided to the patient at time of visit by the ?? technologist. ? MM/MM tomosynthesis added view BI ?? IMPRESSION: ?? Left: Asymmetry lateral left breast on CC view without sonographic ?? correlate. Recommend 6 month follow-up for further evaluation of ?? stability. ? Right: ?? Complicated cysts versus solid masses at 8:00 and 9:00 on ultrasound. ?? Recommend 6 month follow-up ultrasound for further evaluation of ?? stability. ? ASSESSMENT: ? BI-RADS BI-RADS 3 - Probably benign finding(s) - 6 month follow-up ?? suggested ? RECOMMENDATION: ?? 6 Month F/U ? This patient's information was entered into a reminder system with a ?? target due date for their next mammogram. ? Electronically signed by: ??Cinthia Sutton DO ??08/22/2024 10:45 AM EST ?? RP ? Dictated By: ?Cinthia Sutton DO ? Signed By: ?<Electronically signed by Cinthia Sutton, DO in OV> ? 08/22/24 1045 ? DD/ 0948 ? TD/TT: 08/22/24 1033 ? Asset Accountant: ? Procedure Note Donotuseinterpreter, Image - 08/22/2024 [facility] [address] [place] [address] Mammography Report Signed Patient: Ayah BautistaMR#: [id number] [birth year] : 1965Acct:[id number] Age/Sex: 59 / FADM Date: 08/22/24 Loc: HO.MAMMO Attending Dr: Yuniel Jalloh MD Ordering Physician: Yuniel Chun MD Results: 3.6MProbably Benign Finding - Short 6 M F/U Suggested Date of Service: 08/22/24Follow Up: 6 Month F/U Procedure(s): MM tomosynthesis added view BI Accession Number(s): [id number] cc: Yuniel Chun MD EXAMINATION: MM DIAGNOSTIC DIGITAL BREAST TOMOSYNTHESIS, BILATERAL Bilateral Limited ultrasound. CLINICAL INFORMATION: Call back back from screening for bilateral asymmetries. COMPARISON: Mammography: Comparison is made with relevant prior exams. TECHNIQUE: Digital breast mammography with tomosynthesis is performed in both the craniocaudal and mediolateral oblique views along with computer-aided detection (CAD). Bilateral Limited ultrasound. FINDINGS: The breasts are heterogeneously dense, which may obscure small masses (ACR BI-RADS breast composition Category c). Left: Asymmetry in the lateral left breast posterior depth on CC view partially effaces on additional imaging projections. No suspicious other abnormal findings or calcifications. Targeted color Doppler ultrasound scanning in the lateral breast from 1-5 o'clock demonstrates normal fibroglandular breast tissue. Right: Circumscribed oval mass measuring 9 mm in the upper outer breast posterior depth persist on additional imaging projections. No suspicious calcifications or other abnormal findings. Targeted color Doppler ultrasound scanning in the upper outer breast demonstrates at 9:00 8 cm from the nipple a hypoechoic oval solid mass versus complicated cyst measuring 8 x 8 x 5 mm this is a probable correlate for the 9 mm oval mass on mammography in the upper outer breast. There is a hypoechoic oval solid mass versus complicated cyst at 8:00 8 cm from nipple measuring 5 x 4 x 4 mm. Results are provided to the patient at time of visit by the technologist. MM/MM tomosynthesis added view BI IMPRESSION: Left: Asymmetry lateral left breast on CC view without sonographic correlate. Recommend 6 month follow-up for further evaluation of stability. Right: Complicated cysts versus solid masses at 8:00 and 9:00 on ultrasound. Recommend 6 month follow-up ultrasound for further evaluation of stability. ASSESSMENT: BI-RADS BI-RADS 3 - Probably benign finding(s) - 6 month follow-up suggested RECOMMENDATION: 6 Month F/U This patient's information was entered into a reminder system with a target due date for their next mammogram. Electronically signed by: Cinthia Sutton DO 08/22/2024 10:45 AM EST Dictated By: Cinthia Sutton DO Signed By: <Electronically signed by Cinthia Sutton DO in OV> 08/22/24 1045 DD/ 0948 TD/TT: 08/22/24 1033 Asset Accountant: Yuniel Jalloh MD IMG BI PROCEDURES Final Result * Vitamin B12 (Cobalamin) and Folate Panel, Serum (08/21/2024 9:42 AM EST) Vitamin B12 389 200 - 900 pg/mL [facility] Comment:NORMAL 200-900 PG/M L INDETERMINATE 160-199 PG/ML DEFICIENT < 160 PG/ML Folate 10.8 > or = 4.0 ng/mL [facility] Comment:Reference Values:> o r = [...] ORDERABL ES Final Result Performing Organization Address City/[facility]/ZIP Co de Phone Number [facility] [address] [place] [address] [phone] * TSH W/Reflex to FT4 (08/21/2024 9:42 AM EST) TSH reflex Free T4 1.78 0.32 - 4.0 uIU/mL [facility] Blood Venous blood specimen / Unknown 08/21/2024 9:42 AM EST 08/21/2024 1:59 PM EST us Yuniel Jalloh MD LAB BLOOD ORDERABL ES Final Result Performing Organization Address [facility] Co de Phone Number [facility] [address] [place] [phone] * (ABNORMAL) CBC auto differential (08/21/2024 9:42 AM EST) Pathologist [facility] White Blood Count 5.6 4.8 - 10.8 X10*3/uL [facility] Red Blood Count 4.22 4.20 - 5.50 X10*6/uL [facility] Hemoglobin 12.9 12.0 - 16.0 g/dl [facility] Hematocrit 40.2 37.0 - 47.0 % [facility] Mean Corpuscular Volume 95.3 80.0 - 98.0 fL [facility] Mean Corpuscular Hemoglobin 30.6 27.0 - 33.0 pg [facility] Mean Corpuscular HGB Conc 32.1 31.0 - 35.0 g/dl [facility] Red Cell Distribution Width 13.2 11.0 - 16.0 % [facility] Platelet Count 342 160 - 400 X10*3/uL [facility] Mean Platelet Volume 10.4 9.4 - 12.3 fL [facility] Neutrophils Percent Auto 48.5 45 - 73 % [facility] Imm Gran Pct Auto 0.7(H) 0.0 - 0.4 % [facility] Lymphocytes Percent Auto 37.2 20 - 40 % [facility] Monocytes Percent Auto 7.9 2 - 11 % [facility] Eosinophils Percent Auto 5.0(H) 0 - 4 % [facility] Basophils Percent Auto 0.7 0 - 2 % [facility] NRBC Pct Auto 0.0 0.0 - 0.2 /100WBC [facility] Neutrophils Absolute Auto 2.7 2.0 - 8.3 x10*3/uL [facility] Imm Gran Abs Auto 0.04(H) 0.00 - 0.03 X10*3/uL [facility] Lymphocytes Absolute Auto 2.1 1.2 - 4.9 X10*3/uL [facility] Monocytes Absolute Auto 0.4 0.1 - 1.2 X10*3/uL [facility] Eosinophils Absolute Auto 0.3 0.0 - 0.4 X10*3/uL [facility] Basophils Absolute Auto 0.0 0.0 - 0.2 X10*3/uL [facility] NRBC Abs Auto 0.000 0.0 - 0.012 X10*3/uL [facility] Blood Venous blood specimen / Unknown 08/21/2024 9:42 AM EST 08/21/2024 1:59 PM EST us Yuniel Jalloh MD LAB BLOOD ORDERABL ES Final Result [facility] [address] [place] [phone] * Hepatitis C Antibody with Reflex to HCV, RNA, Quantitative, Real-Time PCR (08/21/2024 9:42 AM EST) Hepatitis C Antibody Nonreactive Nonreactive [facility] Comment:Antibodies to HCV no t detected; does not exclude early acuteHCV infection. Blood Venous blood specimen / Unknown 08/21/2024 9:42 AM EST 08/21/2024 1:59 PM EST Yuniel Jalloh MD LAB BLOOD ORDERABL ES Final Result Performing Organization Address [facility] de Phone Number [facility] [address] [place] [phone] * Iron And Total Iron Binding Capacity (08/21/2024 9:42 AM EST) Pathologist [facility] Iron 80 30 - 160 mcg/dL [facility] Total Iron Binding Capacity 287 228 - 428 mcg/dL [facility] Percent Iron Saturation 28 15 - 50 % [facility] Unsaturated Iron Binding 207 ug/dL [facility] Blood Venous blood specimen / Unknown 08/21/2024 9:42 AM EST 08/21/2024 1:59 PM EST Yuniel Jalloh MD LAB BLOOD ORDERABL ES Final Result Performing Organization Address [facility] Phone Number [facility] [address] [place] [phone] * HIV-1/2 Antigen and Antibodies, Fourth Generation, with Reflexes (08/21/2024 9:42 AM EST) [facility] HIV AB/AG Nonreactive Nonreactive [facility] Comment:HIV-1 p24 Ag and/or HIV-1/HIV-2 Ab not detected.A test result that is nonreactive does not exclude thepossibility of exposure to or infection with HIV-1 and/orHIV-2. Nonreactive results in this assay for individualswith prior exposure to HIV-1 and/or HIV-2 may be due toantigen and antibody levels that are below the limit ofdetection of this assay.[facility] HIV Ag/Ab Combo assay result andsupplemental assay results should be interpreted inconjunction with the patient's clinical presentation,history and other laboratory results. If the results areinconsistent with clinical evidence, additional testing issuggested to confirm the result. Blood Venous blood specimen / Unknown 08/21/2024 9:42 AM EST 08/21/2024 1:59 PM EST Yuniel Jalloh MD LAB BLOOD ORDERABL ES Final Result Performing Organization Address [facility] de Phone Number [facility] [address] [place] [phone] * Hemoglobin A1c (08/21/2024 9:42 AM EST) Hemoglobin A1c 5.4 <6.0 % [facility] Comment:Hemoglobin A1C Refer ence Range Adults: 4.8 - 6.0 % Non diabetic: < 6.0 % Goal: < 7.0 %Additional Action Suggested: > 8.0 %Note: Hemoglobin A1c results are invalid for patients with abnormal amounts of HbF. Blood transfusions may impact the HbA1c concentration in the patient sample. Estimated Average Glucose 108 mg/dL [facility] Comment:eAG = Estimated ave rage glucose which is %A1C expressed asaverage glucose, using the formula of the [id number] Glucose study (ADAG), Diabetes Care, Vol.31,#8,2007 Blood Venous blood specimen / Unknown 08/21/2024 9:42 AM EST 08/21/2024 1:59 PM EST us Yuniel Jalloh MD LAB BLOOD ORDERABL ES Final Result Performing Organization Address [facility] Co de Phone Number [facility] [address] [place] [phone] * (ABNORMAL) Lipid Panel, Standard (08/21/2024 9:42 AM EST) Triglycerides 161(H) <150 mg/dL [facility] Comment:Desirable Triglyceri de: less than 150 mg/dLBorderline High Triglyceride 150-199 mg/dLHigh Triglyceride: 200-499 mg/dLVery High Triglyceride: greater than or equal to 5OO mg/dL Cholesterol 195 <200 mg/dL [facility] Comment:Desirable Cholestero l: less than 200 mg/dLBorderline High Cholesterol: 200-239 mg/dLHigh Cholesterol: greater than 239 mg/dL LDL Cholesterol Calculated 118(H) <100 mg/dL [facility] Comment:Desirable LDL: less than 100 mg/dLNear Optimal/Above Optimal LDL: 110- 129 mg/dLBorderline High LDL: 130-159 mg/dLHigh LDL: 160-189 mg/dLVery High LDL: greater than or equal to 190 mg/dL HDL Cholesterol 45 >40 mg/dL [facility] Comment:Desirable HDL: great er than 40 mg/dL Note: This HDL assay may give artificially low results in patients with liver disease. Blood Venous blood specimen / Unknown 08/21/2024 9:42 AM EST 08/21/2024 1:59 PM EST us Yuniel Jalloh MD LAB BLOOD ORDERABL ES Final Result [facility] [address] [place] [address] [phone] * (ABNORMAL) Comprehensive Metabolic Panel (08/21/2024 9:42 AM EST) Sodium 140 135 - 145 mmol/L [facility] Potassium 4.0 3.3 - 5.1 mmol/L [facility] Chloride 110(H) 96 - 108 mmol/L [facility] Carbon Dioxide 26 22 - 29 mmol/L [facility] Anion Gap 8(L) 12 - 20 [facility] Urea Nitrogen (BUN) 19(H) 9 - 16 mg/dL [facility] Creatinine, Serum 0.78 0.5 - 1.4 mg/dL [facility] Estimated Glomerular Filt Rate >60 [facility] Comment:Chronic Kidney Disea se: Estimated GFR < 60 mL/min/1.34o2Yalrgy Kidney Disease: Estimated GFR < 15 mL/min/1.73m2 Glucose 78 60 - 115 mg/dL [facility] Calcium 9.1 8.4 - 10.2 mg/dL [facility] Bilirubin, Total 0.3 0.0 - 1.0 mg/dL [facility] Aspartate Amino Transferase 34(H) 5 - 31 U/L [facility] Alanine Aminotransferase 29 0 - 31 U/L [facility] Total Protein 7.3 6.5 - 8.0 g/dL [facility] Albumin Level 4.0 3.5 - 5.0 g/dL [facility] Alkaline Phosphatase 79 39 - 117 U/L [facility] Blood Venous blood specimen / Unknown 08/21/2024 9:42 AM EST 08/21/2024 1:59 PM EST Yuniel Jalloh MD LAB BLOOD ORDERABL ES Final Result [facility] [address] [place] [address] [phone] * XR Ankle 3+ Views Left (07/17/2024 11:23 AM EST) Anatomical Region Laterality Modality Lower Extremities, Ankle Left Radiogr aphic Imaging 07/17/2024 11:2 3 AM EST Narrative 07/19/2024 1:48 PM EST ? [facility] ? [address] ?[place] [address] ?XRay Report ? Signed ? Patient: Ayah Bautista ?MR#: [id number] ?? 31 ? : 1965 ?Acct:[id number] ? Age/Sex: 59 / F ?ADM Date: 07/17/24 ? Loc: HO.HOSX ? Attending Dr: Belle Steve PA-C ? Ordering Physician: Belle Steve PA-C ?? Date of Service: 07/17/24 ?? Procedure(s): XR ankle LT min 3V ?? Accession Number(s): [id number] ? cc: Yuniel Chun MD; Belle Steve [...] DD/ 1123 ? TD/TT: 07/17/24 1125 ? Asset Accountant: ? Procedure Note Donjosephter, Image - 07/19/2024 [facility] [address] [place] [address] [address] [place] [address] XRay Report Signed Patient: Ayah BautistaMR#: [id number] [birth year] : 1965Acct:[id number] Age/Sex: 59 / FADM Date: 07/17/24 Loc: CONNIE Attending Dr: Belle Steve PA-C Ordering Physician: Belle Steve PA-C Date of Service: 07/17/24 Procedure(s): XR ankle LT min 3V Accession Number(s): [id number] cc: Yuniel Chun MD; Belle Steve PA-C [...] 07/19/24 1345 DD/ 1123 TD/TT: 07/17/24 1125 Asset Accountant: [facility] External Provider IMG XR PROCEDURES Edited Result - Final * BD DEXA Axial (06/27/2024 2:45 PM EST) Anatomical Region Laterality Modality Body Radiographic Mine ging 06/27/2024 2:45 PM EST Narrative 06/28/2024 10:15 AM EST ? [facility] ? [address] ?[place] [address] ? Mammography Report ? Signed ? Patient: Ayah Bautista ?MR#: [id number] ?? [birth year] ? : 1965 ?Acct:[id number] ? Age/Sex: 59 / F ?ADM Date: 12/17/24 ? Loc: HO.MAMMO ? Attending Dr: Yuniel Jalloh MD ? Ordering Physician: Yuniel Chun MD ?Res ?? ults: ? Date of Service: 12/17/24 ?Follow Up: ? Procedure(s): XR DEXA axial skeleton ?? Accession Number(s): [id number] ? cc: Yuniel Chun MD ? EXAMINATION: ?? BONE DENSITOMETRY ? CLINICAL INDICATION: ?? Osteoporosis. ? COMPARISON: ?? This is the patient's baseline examination. ? TECHNIQUE: Using a [employer] DXA System (software version: ?? 13.1) manufactured by [employer], dual-energy x-ray absorptiometry ?? was performed of [...] DD/ 1445 ? TD/TT: 06/27/24 1500 ? Asset Accountant: SK ? Procedure Note Starla, Image - 06/28/2024 [facility] [address] [place] [address] Mammography Report Signed Patient: Ayah BautistaMR#: [id number] [birth year] : 1965Acct:[id number] Age/Sex: 59 / FADM Date: 06/27/24 Loc: HO.MAMMO Attending Dr: Yuniel Jalloh MD Ordering Physician: Yuniel Chun ults: Date of Service: 06/27/24Follow Up: Procedure(s): XR DEXA axial skeleton Accession Number(s): [id number] cc: Yuniel Chun MD EXAMINATION: BONE DENSITOMETRY CLINICAL INDICATION: Osteoporosis. COMPARISON: This is the patient's baseline examination. TECHNIQUE: Using a [employer] DXA System (software version: 13.1) manufactured by [employer], dual-energy x-ray absorptiometry was performed of the [...] 06/28/24 1012 DD/ 1445 TD/TT: 06/27/24 1500 Asset Accountant: FABIOLA us Yuniel Jalloh MD IMG DXA PROCEDURES Edited Result - Final * BI Mammogram Screening Tomosynthesis Bilateral (06/26/2024 3:51 PM EST) Anatomical Region Laterality Modality Breast Bilateral Mammography 06/26/2024 3:51 PM EST Narrative 07/18/2024 10:04 AM EST ? [facility] ? [address] ?[place] [address] ? Mammography Report ? Signed ? Patient: Ayah Bautista ?MR#: [id number] ?? 31 ? : 1965 ?Acct:[id number] ? Age/Sex: 59 / F ?ADM Date: 12/16/24 ? Loc: HO.MAMMO ? Attending Dr: Yuniel Jalloh MD ? Ordering Physician: Yuniel Chun MD ? Results: 0Incomplete: Needs Additional Imaging ?? Evaluation ? Date of Service: 06/26/24 ?Follow Up: Additional Imagi ?? ng ? Procedure(s): MM tomosynthesis screening BI ?? Accession Number(s): [id number] ? cc: Yuniel Chun MD ? EXAMINATION: [...] Signed By: ?<Electronically signed by Cinthia Sutton, in OV> ? 07/18/24 1001 ? DD/ 1551 ? TD/TT: 06/26/24 1551 ? Asset Accountant: ? Procedure Note Donotcarmeninterpreter, Image - 07/18/2024 [facility] [address] [place], [place] [address] Mammography Report Signed Patient: Ayah BautistaMR#: [id number] [birth year] : 1965Acct:[id number] Age/Sex: 59 / FADM Date: 06/26/24 Loc: HO.MAMMO Attending Dr: Yuniel Jalloh MD Ordering Physician: Yuniel Chun MD Results: 0Incomplete: Needs Additional Imaging Evaluation Date of Service: 06/26/24Follow Up: Additional Imagi ng Procedure(s): MM tomosynthesis screening BI Accession Number(s): [id number] cc: Yuniel Chun MD EXAMINATION: MM SCREENING [...] 07/18/24 1001 DD/ 1551 TD/TT: 06/26/24 1551 Asset Accountant: Yuniel Jalloh MD IMG BI PROCEDURES Edited Result - Final from Last [address] [place], [place] [id number]3 Care Teams City Marshal Relationship Specialty Start Date End Date Yuniel Chun MD [address] [place] [id number] PCP - General Internal Medicine 05/11/24
--- OUTSIDE RECORDS SUMMARY | 2024-09-14 18:24 | XMS_ITS | Continuity of Care Document ---
Author Organization [facility] Address [address] [place] [address] Phone Care Team Providers Care Home Appliance Installer Name Role Phone No Information Unavailable Unavailable [...] Location Reason(s) For Visit Diagnoses Date Provider [address] tel:[phone] No Location No Information No Information [place] [address], tel:[phone] [facility] No Information Raffucci Theodore. [address] [place] [address], [facility], . tel:[phone] [place] [address], tel:[phone] [facility] [place] No Information Raffucci Theodore. [address] [place], [place], [facility], . tel:[phone], [facility], [place] tel:[phone] [facility] No Information Raffucci Theodore. [address] [place], [facility], [place]. tel:[phone] [place] [address], [address] [place] [address], [facility], tel:[phone] [facility] No Information Raffucci Theodore. [address] [place], [place], [facility], [place]. tel:[phone] [place] [address], [address] [place] [address], [facility], tel:[phone] [facility]ash No Information Raffucci Theodore. [address] [place], [facility], . tel:[phone] [place] [address], [address] [place] [address], [facility], tel:[phone] [facility] left flank pain (chief complaint)W orried about BP (chief complaint) MyalgiaScreening for colon cancerScreening mammogram for breast cancerElevated blood pressure readingEncntr for general adult medical exam w/o abnormal findings Florin Hampton. [address] [place], [id number], . tel:[phone] [place] [address], [facility], [place] tel:[phone] [facility] Encounter for dental exam and cleaning w/o abnormal findings Raffucci Theodore. [address] [place], [place], [facility], [place]. tel:[phone] [place] [address], [address] [place] [address], [facility], [place] tel:[phone] [facility] Encounter for dental exam and cleaning w/o abnormal findings Raffucci Theodore. [address] [place], [facility], [place]. tel:[phone] [place] [address] [place] [address], [facility], tel:[phone] [facility] Encounter for dental exam and cleaning w/o abnormal findings Jing Jaimes. [address] [place], [facility], . tel:[phone] [place] [address], [address] [place] [address], [facility], tel:[phone] [facility] Encounter for dental exam and cleaning w/o abnormal findings Jing Jaimes. [address] [place], [facility], . tel:[phone] [place] [address], [address] [place] [address], [facility], tel:[phone] [facility] Encounter for dental exam and cleaning w/o abnormal findings Jing Jaimes. [address] [place], [facility], [place]. tel:[phone] [place] [address], [address] [place] [address], [facility], tel:[phone] [facility] Encounter for dental exam and cleaning w/o abnormal findings Jing Jaimes. [address] [place], [facility], . tel:[phone] [place] [address], [facility], tel:[phone] [facility] Encounter for dental exam and cleaning w/o abnormal findings Kvng Hampton. [address] [place], [place], [id number], [place]. tel:[phone] [place] [address], [facility], tel:[phone] [facility] Encounter for dental exam and cleaning w/o abnormal findings Jing Jaimes. [address] [place], [facility], . tel:[phone] [place] [address], [place], [address], tel:[phone] [facility] Encounter for dental exam and cleaning w/o abnormal findings Jing Jaimes. [address] [place], [address], [place]. tel:[phone] [facility], [address] [place] [address], [address], [place] tel:[phone] [facility] [place] Encounter for dental exam and cleaning w/o abnormal findings Jing Jaimes. [address] [facility] [place], [facility], [place]. tel:[phone] [facility], [address] [place] [address], [facility], [place] tel:[phone] [facility] Encounter for dental exam and cleaning w/o abnormal findings Jing Jaimes. [address] [place], [facility], [place]. tel:[phone] [place] [address], [address] [place] [address], [facility], [place] tel:[phone] [facility] Encounter for dental exam and cleaning w/o abnormal findings Jing Jaimes. [address] [place], [facility], [place]. tel:[phone] [facility], [address] [place] [address], [facility], [place] tel:[phone] [facility] Encounter for dental exam and cleaning w/o abnormal findings Jing Jaimes. [address] [place], [facility], [place]. tel:[phone] [facility], [address] [place] [address], [address], [place] tel:[phone] [facility] Encounter for dental exam and cleaning w/o abnormal findings Jing Jaimes. [address] [place], [facility], [place]. tel:[phone] [facility], [address] [place] [address], [facility], tel:[phone] [facility] [place] Encounter for dental exam and cleaning w/o abnormal findings Bala Gomes. [address] [place], [facility], . [facility], [address] [place] [address], [facility], tel:[phone] [facility] [place] Encounter for dental exam and cleaning w/o abnormal findings Bala Gomes. [address] [place], [facility], . [facility], [address] [place] [address], [facility], tel:[phone] [facility] [place] Encounter for dental exam and cleaning w/o abnormal findings Bala Gomes. [address] [place], [facility], . [address], [facility], tel:[phone] [facility] [place] Encounter for dental exam and cleaning w/o abnormal findings Bala Gomes. [address] [place], [facility], . [address], [facility], tel:[phone] [facility] Adult test result f/u (chief complaint) Age-related osteoporosis without current pathological fractureVitamin D deficiencyBody mass index (BMI) 22.0-22.9, adult Iliana Pena. [address], [place], [place], [facility], . tel:[phone], [facility], tel:[phone] [facility] Adult joint pain (chief complaint) Pain, joint, multiple sitesScreening mammogram, encounter forHealthcare maintenanceBody mass index (BMI) 21.0-21.9, adult Iliana Pena. [address], [place], [place], [facility], . tel:[phone] [facility], [address] [place] [address], [facility], tel:[phone] [facility] Encounter for dental exam and cleaning w/o abnormal findings Bala Gomes. [address] [place], [address], [place]. [facility], [address] [place] [address], [address], tel:[phone] [facility] Encounter for dental exam and cleaning w/o abnormal findings Bala Gomes. [address] [place], [address], [place]. [facility], [address] [place] [address], [facility], tel:[phone] [facility] Encounter for dental exam and cleaning w/o abnormal findings Bala Gomes. [address] [place], [address], [place]. [facility], [address] [place] [address], [facility], tel:[phone] [facility] Encounter for dental exam and cleaning w/o abnormal findings Bala Gomes. [address] [place], [facility], [place]. [facility], [address] [place] [address], [facility], tel:[phone] [facility] Encounter for dental exam and cleaning w/o abnormal findings Bala Gomes. [address] [place], [address], [place]. [facility], [address] [place] [address], [facility], tel:[phone] [facility] Encounter for dental exam and cleaning w/o abnormal findings Bala Gomes. [address] [place], [address], [place]. [address], [facility], tel:[phone] [facility] Encounter for dental exam and cleaning w/o abnormal findings Bala Gomes. [address] [place], [facility], [place]. [facility], [address] [place] [address], [address] [place] [address] tel:[phone] [facility] [place] Encounter for dental exam and cleaning w/o abnormal findings Rafat Nguyen. [address] [place] [address], [facility], . tel:[phone] [place] [address], [address] [place] [address], [facility], tel:[phone] [facility] cold symptoms (chief complaint) Acute non-recurrent maxillary sinusitis Dixon Anny. [address] [facility] [place], [id number] [place], [place], [facility] [place], . tel:[phone] [place] [address], [address] [place] [address], [facility], tel:[phone] [facility] ear ache (chief complaint) Acute non-recurrent maxillary sinusitisAcute mucoid otitis media of right ear Jessica Blanco. [address] [facility], [id number] [place], [facility], . tel:[phone] [place] [address], [address] [place] [address], [facility], tel:[phone] [facility] chest pain and cough (chief complaint) Bronchitis Jessica Sánchez. [address] [place], [place] [address]man Radha., [id number] [place], [place], [facility], . tel:[phone] [place] [address], [facility], tel:[phone] [facility] [place] DENTAL EXAMINATION Jing Jaimes. [address] [place], [facility], . tel:[phone] [place] [address], [address] [place] [address], [facility], tel:[phone] [facility] physical (chief complaint) Annual Adult PhysicalPPD Screen Kim Silva. [address] [place] [address], [id number], [place]. tel:[phone] [facility], [address] [facility], [place], [address], [place] tel:[phone] [facility] , knee pains right (chief complaint) Knee pain, acute Jessica Blanco. [address] [facility], [id number] [place], [address], [place]. tel:[phone] Family History Family Member Type Diagnosis Age At Onset Father Problem (finding) Hepatitis C (Cause Of D eath) Sister Problem (finding) murder (Cause Of ) Son Problem (finding) Sister Problem (finding) Mother Problem (finding) osteoporosis Son Problem (finding) asthma (Cause Of ) Father Problem (finding) Payers Payer name Insurance type Covered libertarian ID Shahriar ramos(s) DENTAL [facility] CI [id number] Social History Type Description Quantity Date Captured Comments Sex Female Smoking Status No Information Sexual Orientation Straight or heterosexual May Gender Identity Female Chief Complaint And Reason For Visit No Information Plan Of Treatment Date Type Action Status Goal Pap/HPV testing. Due on due Goal Hep B Surface Ab , Quant. Due on due Goal Hep B Core Ab, I gM. Due on due Goal HIV 1/0/2 Ag/Ab With Reflex. Due on due Goal DEXA scan due Goal Colonoscopy. Due on 027 due Goal Tdap/Td. Due on due Goal Zoster vaccine ( 1st). Due on due Goal FOBT/FIT. Due on [...] Ab, I gM. Due on due Goal DEXA scan due [...] Ab, I gM. Due on due Goal DEXA scan due Goal HCV reflex to Qu ant RT PCR. Due on due Goal Pap/HPV testing. Due on due Goal Zoster vaccine ( [...] Ab, I gM. Due on due Goal Self-Management Goals. Due [...] due Goal Tdap/Td. Due on due Goal Colonoscopy. Due on [...] ordered Referral Referred To: Lissy Orlando MD [address] [place] [address] [id number] [place], [address] [phone] Ordered: Referrals: Gynecology. Lissy Orlando MD. Evaluate and treat Appointment date/timeframe: 6 Months ordered Referral Referred To: [facility] [address] [place], [address] [phone] Ordered: Referrals: Gastroenterology. Evaluate and treat Appointment date/timeframe: 6 Months ordered Future Order: Radiology Order Ma mmogram (Screen); Bilat, 2-view study of each breast, incl computer-aided detection when performed ([id number]), Ordered on: Ordered Future Order: Lab Order CBC w/di ff ([id number]), Ordered on: Ordered Future Order: Lab Order CMP ([id number]), Ordered on: Ordered Future Order: Lab Order Lipid Pa tonny ([id number]), Ordered on: Ordered Future Order: Lab Order Lyme, We miller Blot, Serum ([id number]), Ordered on: Ordered Future Order: Lab Order GENESIS ([id number]), Ordered on: Ordered Future Order: Lab Order Rheumato id Factor ([id number]), Ordered on: Ordered Future Order: Lab Order TSH ([id number]), Ordered on: Ordered Future Order: Lab Order UA w/dejon ro ([id number]), Ordered on: Ordered Future Order: Lab Order Vitamin D, 25-Hydroxy ([id number]), Ordered on: Ordered Future Order: Radiology Order Ma mmogram (Screening); Bilateral ([id number]), Ordered on: Ordered Future Order: Radiology Order Rj ne density study (by DEXA); appendicular skeleton (e.g., radius, wrist, heel) ([id number]), Ordered on: Ordered Future Order: Lab Order CMP ([id number]), Ordered on: Ordered Future Order: Lab Order Lipid Pa tonny ([id number]), Ordered on: Ordered History Of Present Illness [...] Acute mucoid otitis media of right ear Take medications as prescribed, do not skip [...]
--- OUTSIDE RECORDS SUMMARY | 2024-09-14 18:24 | XMS_ITS | Encounter Summary ---
Author Organization [employer] Address [address] [place] [address] Care Team Providers Care Imaging Specialist Name Role Phone Yuniel Chun MD Primary Care Prov ider Encounter Details Date Type Department Care Team (Late st Contact Info) Description 08/22/2024 Orders Only [facility] CH[facility] MED & PEDS [address] [place], [place] [phone] Yuniel Chun MD [address] [place] [address] Social History Tobacco Use Types Packs/Day Years [...] VIEW BILATERAL Routine 08/22/2024 9:48 AM EST documented in this encounter Results * BI US Breast Limited Bilateral (08/22/2024 10:00 AM EST) Anatomical Region Laterality Modality Breast Bilateral Ultrasound 08/22/2024 10:0 0 AM EST Narrative 08/22/2024 10:48 AM EST ? [facility] ? [address] ?[place] [address] ? Ultrasound Report ? Signed ? Patient: Ayah Bautista ?MR#: [id number] ?? [birth year] ? : 1965 ?Acct:[id number] ? Age/Sex: 59 / F ?ADM Date: 08/22/24 ? Loc: HO.MAMMO ? Attending Dr: Yuniel Jalloh MD ? Ordering Physician: Yuniel Chun MD ?? Date of Service: 08/22/24 ?? Procedure(s): US breast BI limited mamm only ?? Accession Number(s): [id number] ? cc: Yuniel Chun MD ? EXAMINATION: [...] by Cinthia Sutton, DO in OV> ? 08/22/245 ? DD/ 1000 ? TD/TT: 08/22/24 1033 ? Basket Filler: ? Procedure Note Donotuseinterpreter, Image - 08/22/2024 [facility] [address] [place] [address] Ultrasound Report Signed Patient: Ayah BautistaMR#: [id number] [birth year] : 1965Acct:[id number] Age/Sex: 59 / FADM Date: 08/22/24 Loc: HO.MAMMO Attending Dr: Yuniel Jalloh MD Ordering Physician: Yuniel Chun MD Date of Service: 08/22/24 Procedure(s): US breast BI limited mamm only Accession Number(s): [id number] cc: Yuniel Chun MD EXAMINATION: MM DIAGNOSTIC [...] 08/22/24 1045 DD/ 1000 TD/TT: 08/22/24 1033 Basket Filler: us Yuniel Jalloh MD IMG US PROCEDURES Final Result * BI Mammogram Diagnostic Tomosynthesis added bilateral (08/22/2024 9:48 AM EST) Anatomical Region Laterality Modality Breast Left Mammography 08/22/2024 9:48 AM EST Narrative 08/22/2024 10:48 AM EST ? [facility] ? [address] [facility] ?[place] [address] ? Mammography Report ? Signed ? Patient: Ayah Bautista ?MR#: [id number] ?? [birth year] ? : 1965 ?Acct:[id number] ? Age/Sex: 59 / F ?ADM Date: 02/11/25 ? Loc: HO.MAMMO ? Attending Dr: Yuniel Jalloh MD ? Ordering Physician: Yuniel Chun MD ? Results: 3.6MProbably Benign Finding - Short 6 M ?? F/U Suggested ? Date of Service: 08/22/24 ?Follow Up: 6 Month F/U ? Procedure(s): MM tomosynthesis added view BI ?? Accession Number(s): [id number] ? cc: Yuniel Chun MD ? EXAMINATION: [...] DD/ 0948 ? TD/TT: 08/22/24 1033 ? Basket Filler: ? Procedure Note Brent Cha - 08/22/2024 [facility] [address] [place] [address] Dr. [place], [place] [address] Mammography Report Signed Patient: Ayah BautistaMR#: [id number] [birth year] : 1965Acct:[id number] Age/Sex: 59 / FADM Date: 08/22/24 Loc: HO.MAMMO Attending Dr: Yuniel Jalloh MD Ordering Physician: Yuniel Chun MD Results: 3.6MProbably Benign Finding - Short 6 M F/U Suggested Date of Service: 08/22/24Follow Up: 6 Month F/U Procedure(s): MM tomosynthesis added view BI Accession Number(s): [id number] cc: Yuniel Chun MD EXAMINATION: MM DIAGNOSTIC [...] 08/22/24 1045 DD/ 0948 TD/TT: 08/22/24 1033 Basket Filler: Yuniel Jalloh MD IMG BI PROCEDURES Final Result documented in this encounter Visit Diagnoses Not on filedocumented in this encounter Additional Health Concerns Assessment Noted Time PHQ-9 Depression Total Score: 6 08/01/19 25 1:58 PM EST documented as of this encounter Care Teams Imaging Specialist Relationship Specialty Start Date End Date Yuniel Chun MD [address] [place] [id number] PCP - General Internal Medicine 05/11/24 documented as of this encounter
== END 2024-09-14 15:35 | disposition home or self-care (01) ==
PROVIDERS: PCP Internal Medicine; Visit Provider Physician Assistant
DX: S82.892D Other fracture of left lower leg, subsequent encounter for closed fracture with routine healing (principal)
CPT/HCPCS: 99213

== ENCOUNTER → 2024-09-14 14:55 | Outpatient (BNV) | payer MEDICAID, SELFPAY | PROVIDERS: Visit Provider Radiology Diagnostic Radiology | DX: M25.572 Pain in left ankle and joints of left foot (principal) | CPT/HCPCS: 73610 ==